=== PATIENT | female | born 1965 | race Caucasian/White ===

== ENCOUNTER → 2017-03-26 15:34 | Outpatient (CLI) | payer MEDICARE, SELFPAY ==
--- NOTE | 2017-03-26 15:41 | XR_ITS ---
XR hip LT 2-3V w/pelvis HISTORY: Pain following injury ORDERING PHYSICIAN: DERREK Prado PATIENT AGE: 51 years COMPARISON: April 06, 2010 FINDINGS: No obvious fracture or dislocation. Mild osteoarthritic changes are present involving the hips. No lytic or blastic change. There is a longitudinal lucency along the lateral aspect of the acetabulum. Present on the previous study and may be due to prominent area of trabeculation or groove within the acetabulum. IMPRESSION: No acute finding. Mild osteoarthritis of the hip
--- NOTE | 2017-03-26 15:41 | XR_ITS ---
XR shoulder LT min 2V HISTORY: Pain following injury ORDERING PHYSICIAN: DERREK Prado PATIENT AGE: 51 years COMPARISON: None FINDINGS: No fracture or dislocation. No lytic or blastic change. There is normal mineralization. Osteoarthritic changes are present at the acromioclavicular joint IMPRESSION: 1. No acute fracture. 2. Mild osteoarthritis of the AC joint
--- NOTE | 2017-03-26 15:41 | XR_ITS ---
XR knee LT 4V HISTORY: Pain following injury ORDERING PHYSICIAN: DERREK Prado PATIENT AGE: 51 years COMPARISON: None FINDINGS: 02/09/2015 No fracture or dislocation. No lytic or blastic change. Normal mineralization. There are mild to moderate tricompartmental osteoarthritic changes greater at the medial compartment and patellofemoral joint. No other significant findings IMPRESSION: Osteoarthritis. No acute finding
--- NOTE | 2017-03-26 15:42 | XR_ITS ---
EXAM: XR lumbar spine min 4V HISTORY: Low back pain following injury ITS.REASON: LEFT HIP PAIN,LT KNEE PAIN,LT SHOULDER PAIN,LOW BACK PAIN ORDERING PHYSICIAN: DERREK Prado PATIENT AGE: 51 years COMPARISON: None FINDINGS: Normal alignment. No fracture or dislocation. No lytic or blastic change. Minimal lumbar curvature convex left. Small endplate osteophytes at L5 and L4. Mild facet arthritic changes L5-S1 in the SI joints. IMPRESSION: No acute finding. Mild lumbar spondylosis
== END ==
PROVIDERS: PCP Family Medicine; Visit Provider Physician Assistant
DX: M25.552 Pain in left hip (principal); M25.512 Pain in left shoulder; M25.562 Pain in left knee; M54.5 Low back pain
CPT/HCPCS: 72110; 73030; 73502; 73564

== ENCOUNTER → 2017-07-23 10:47 | Outpatient (CLI) | payer MEDICARE, SELFPAY ==
--- NOTE | 2017-07-23 | CI_ITS ---
Cerebrovascular Exam Indications: 780.4 Dizziness and giddiness. Obesity, Limited scanning due to body habitus. IMPRESSIONS 1. The bilateral internal carotid arteries reveal no evidence of plaque or stenosis. 2. The bilateral common and external carotid arteries reveal no significant stenosis. 3. The bilateral vertebral arteries are patent with normal antegrade flow. History: Transient ischemic attack. Risk factors: Hypertension. Diabetes mellitus. Hyperlipidemia. Carotid duplex study. Complete study and Doppler flow study including spectral analysis, color and velazquez scale imaging. Height: Height: 165.1cm. Height: 65in. Weight: Weight: 118.8kg. Weight: 261.5lb. Body mass index: BMI: 43.6kg/m^2. Body surface area: BSA: 2.4m^2. Location: Vascular laboratory. Patient status: Outpatient. Tables: Arterial flow: + +--------+--------+ Location V sys V ed + +--------+--------+ Right CCA - proximal 151cm/s 18.9cm/s + +--------+--------+ Right CCA - distal 114cm/s 25.1cm/s + +--------+--------+ Right ECA 165cm/s -------- + +--------+--------+ Right ICA - proximal 95.1cm/s 25.9cm/s + +--------+--------+ Right ICA - mid 54cm/s 16.5cm/s + +--------+--------+ Right ICA - distal 83cm/s 23.7cm/s + +--------+--------+ Left CCA - proximal 136cm/s 20.4cm/s + +--------+--------+ Left CCA - distal 98.9cm/s 22.2cm/s + +--------+--------+ Left ECA 125cm/s -------- + +--------+--------+ Left ICA - proximal 60cm/s 20cm/s + +--------+--------+ Left ICA - mid 69.7cm/s 24.5cm/s + +--------+--------+ Left vertebral 58.6cm/s -------- + +--------+--------+ Velocity ratios: + + + + + + Right, V sys Right, V ed Left, V sys Left, V ed + + + + + + Max ICA/dist CCA 0.83 1.03 0.7 1.1 + + + + + + (Report amended ) Electronically signed by: Nhan Sadler [id number]
== END ==
PROVIDERS: Family Provider Family Medicine; PCP Family Medicine; Visit Provider Family Medicine
DX: R40.4 Transient alteration of awareness (principal); R42 Dizziness and giddiness
CPT/HCPCS: 93880

== ENCOUNTER 2017-08-06 09:22 | Observation (INO) ==
--- NOTE | 2017-08-06 09:48 | Emergency Department Note ---
ED Disposition Clinical Impression: Compression fracture, Intractable pain Disposition: Admitted as Observation Condition on Discharge: Fair Additional Instructions: Admittd to OBS and told this will not be a prolonged admission...only for intractable pain to stabilize Referrals: Brendan Young MD [Primary Care Provider] - Keshawn Albert MD [Staff Physician] - Time of Disposition: 13:44 - Critical Care Critical Care Time: No Attestation: On , the high probability of a clinically significant, sudden or life threatening deterioration of the following system(s) required my full and direct attention, intervention and personal management. The time I documented below is in addition to time spent performing reported procedures but includes the following listed in this critical care notation. Medical Decision Making - Edwin Inquiry Pt receiving controlled substance: No Edwin was queried for this patient: No Reason not queried -: Emergent pt cond-no time Risks and benefits of using a controlled substance: were discussed with pt by me Vital Signs: 08/06/17 09:22 08/06/17 09:23 Temperature 98.3 F Temperature Source Temporal Artery Scan Pulse Rate [Right Brachial] 96 H 86 Respiratory Rate 20 18 Blood Pressure [RIGHT] 161/103 142/77 Blood Pressure Mean [RIGHT] 122 98 Blood Pressure Source [RIGHT] Automatic Cuff Blood Pressure Position [RIGHT] Sitting 02 Sat by Pulse Oximetry 97 95 Oxygen Delivery Method Room Air - Lab Data Lab results reviewed: Yes: I reviewed the patient's lab results. Lab Results 08/06/17 10:10: WBC 8.6, RBC 5.45 H, Hgb 16.4 H, Hct 51.6 H, MCV 94.8, MCH 30.0 , MCHC 31.7 L, RDW 12.8, Plt Count 220, MPV 7.7, Neut % (Auto) 79.2, Lymph % ( Auto) 15.4, [place] % (Auto) 4.0, Eos % (Auto) 1.1, Baso % (Auto) 0.4, Neut # (Auto ) 6.8, Lymph # (Auto) 1.3, [place] # (Auto) 0.3, Eos # (Auto) 0.1, Baso # (Auto) 0.0 08/06/17 10:10: Sodium 141, Potassium 4.1, Chloride 101, Carbon Dioxide 30, Anion Gap 14.1, BUN 17, Creatinine 0.81, Estimated Creat Clear 66, Estimated GFR 74, Est GFR ( Amer) 89, Glucose 196 H, Calcium 9.1, Total Bilirubin 0.4, AST 22, ALT 31, Alkaline Phosphatase 81, Total Protein 7.6, Albumin 3.3 L, Globulin 4.3 H, Albumin/Globulin Ratio 0.8 L Result diagrams: 08/06/17 10:10 08/06/17 10:10 Orders (Tests/Meds): ED MEDICATIONS Discontinued Medications Generic Name Dose Route Start Last Admin Trade Name Russell PRN Reason Stop Dose Admin Morphine Sulfate 4 mg 08/06/17 12:25 08/06/17 12:38 Morphine 4mg/Ml Syringe IV 08/06/17 12:26 4 mg ONCE ONE Administration Ondansetron HCl 4 mg 08/06/17 12:25 08/06/17 12:38 Zofran 4mg/2ml Vial IV 08/06/17 12:26 4 mg ONCE ONE Administration ORDERS Category Date Time Status Urinalysis and Microscopic Stat Lab 08/06/17 09:54 Ordered - Radiology Data #1 Image(s): L-Spine Image Reviewed: Yes I reviewed the patient's radiology results, Yes I reviewed the patient's radiology image, Yes I discussed the image results w/the radiologist MILD COMPRESSION OF L1 Back Pain HPI - General Chief Complaint: Back Pain/Injury Stated Complaint: FALL Time Seen by Provider: 08/06/17 09:43 Mode of Arrival: EMS Limitations: No Limitations Description of Symptoms (Recalled from ER Triage Doc. by RN): LOW BACK PAIN FROM FALL - History of Present Illness HPI Narrative: Pt reports she has been having falls recently and normally uses a walker to help her but last night went to bed and left walker in living room. This morning got up and used cane to walk into the living room and fell backwards and landed on her back and head. NO LOC but pain in head, Neck, upper and lower back and into both arms and both legs. MD Complaint: back pain, fall Onset (ago): hour(s) Duration: constant Similar Symptoms Previously: Yes Location: lumbar spine, thoracic spine Severity: moderate Quality: sharp - Related Data Home Medications Medication Instructions Recorded Confirmed Citalopram Hydrobromide [Celexa 1 tab PO DAILY 08/06/17 08/06/17 10mg Tablet] Dapagliflozin/Metformin HCl 1 tab PO DIRECTED 08/06/17 08/06/17 [Xigduo Xr 10 mg-1,000 mg Tab] Gabapentin [Neurontin 600mg 1 tab PO DAILY 08/06/17 08/06/17 tablet] Insulin Glargine,Hum.rec.anlog 0 units SQ DIRECTED 08/06/17 08/06/17 [Toujeo Solostar] Liraglutide [Victoza 3-Sharath] 1 dose PO DAILY 08/06/17 08/06/17 Triamterene/Hydrochlorothiazid 1 tab PO DIRECTED 08/06/17 08/06/17 [Maxzide-25 tablet] buPROPion HCl [Bupropion HCl Sr] 150 mg PO DAILY 08/06/17 08/06/17 diazePAM [Valium 2mg tablet] 1 tab PO DAILY 08/06/17 08/06/17 Allergies Allergy/AdvReac Type Severity Reaction Status Date / Time cephalexin [CEPHALEXIN] Allergy Intermediate I-HIVES Verified 08/06/17 10:00 [facility] History I have reviewed the patient's past medical history: Yes - Social History Smoking Status: Never smoker Alcohol Intake: never - Psychiatric History Expresses thoughts of harming self/others: None Suicide Plan Description: No Plan ROS Obtained: Yes All systems reviewed & no additional complaints - Constitutional Constitutional: Reports system reviewed and no additional complaints, except as docu - ENT Ears, Nose, Mouth, and Throat: Reports system reviewed and no additional complaints, except as docu - Cardiovascular Cardiovascular: Reports system reviewed and no additional complaints, except as docu - Respiratory Respiratory: Yes system reviewed and no additional complaints, except as docu - Musculoskeletal Musculoskeletal: Reports system reviewed and no additional complaints, except as docu Physical Exam - General General appearance: alert, in no apparent distress - Head Head exam: atraumatic - Eye Eye exam: Present: normal appearance - ENT ENT exam: Present: normal exam - Neck Neck exam: Present: normal inspection (moveing without difficulty but complains of pain) - Chest Chest inspection: Present: normal inspection - Respiratory Respiratory exam: Present: normal lung sounds bilaterally - Cardiovascular Cardiovascular exam: Present: regular rate - Back Exam Back exam: Present: normal inspection, full ROM - Neurological Exam Neurological exam: Present: alert, oriented X3 - Psychiatric Psychiatric exam: Present: normal affect
[2017-08-06 10:20] LABS: Basophils % 0.4 % (0.1-2.0); Eosinophils # 0.1 K/mm3 (0.0-0.4); Eosinophils % 1.1 % (0.1-12.0); Hematocrit 51.6 % (37.0-47.0); Hemoglobin 16.4 g/dL (12.2-16.2); Lymphocytes # 1.3 K/mm3 (0.7-4.5); Lymphocytes % 15.4 K/mm3 (10-50); Mean Corpuscular HGB Conc 31.7 g/dL (31.8-35.4); Mean Corpuscular Volume 94.8 fl (81-99); Mean Platelet Volume 7.7 fl (7.4-10.4); Monocytes # 0.3 K/mm3 (0.1-1.0); Neutrophils # 6.8 K/mm3 (1.8-7.8); Neutrophils % 79.2 % (37.0-80.0); Platelet Count 220 K/mm3 (142-424); Red Blood Count 5.45 M/mm3 (4.20-5.40); Red Cell Distribution Width 12.8 % (11.5-17.5); White Blood Count 8.6 K/mm3 (4.8-10.8)
[2017-08-06 10:32] LABS: Albumin Level 3.3 gm/dL (3.4-5.0); Albumin/Globulin Ratio 0.8 (1.1-1.8); Anion Gap 14.1 mEq/L (5-15); Bilirubin,Total 0.4 mg/dL (0.2-1.0); Calcium 9.1 mg/dL (8.5-10.1); Globulin 4.3 gm/dl (1.3-3.2); Potassium 4.1 mmoL/L (3.5-5.1); Total Protein,Serum 7.6 gm/dL (6.4-8.2)
--- NOTE | 2017-08-06 15:48 | History & Physical Report ---
*Admission Date: 08/06/17 <TangLadonna metcalf 08/06/17 15:48> *Chief complaint: Back pain <ClydeLadonna 08/06/17 15:48> *History of present illness: Ms. Partida is a 52-year-old female with a history of hypertension, obesity, type 2 diabetes, anxiety, and mild degenerative disc disease who fell this a.m. after tripping when using her cane when going to the bathroom. She states she usually will uses her walker but cannot use it in the bathroom because the bathroom is too small. She fell down on her buttocks and her head and was unable to get up. EMS was called and she was carried to the ambulance and brought to the hospital emergency room for evaluation. With evaluation in the emergency room she was found to have a compression fracture fracture at L1. She was admitted to observation with intractable pain. At the time of this exam patient is lying flat in the bed and appears comfortable. She does want to know what we are going to order for her pain. <ClydeLadonna 08/06/17 15:48> [facility] History Medical History: Reports:: Anxiety, Depression, Diabetes Mellitus Type 2, Gastroesophageal Reflux Disease(GERD), Hyperlipidemia, Hypertension Denies:: Cancer, Diabetes Mellitus Type 1, Internal Pacemaker, MRSA, Seizures <ClydeLadonna 08/06/17 17:21> Other Surgeries: Yes: Cholecystectomy, Dilation and Curettage. No: Pacemaker <Ladonna Tang 08/06/17 17:21> Amputation: No <Ladonna Tang 08/06/17 15:48> Fractures: No <Ladonna Tang 08/06/17 15:48> - *Social History Educational Level: Completed High School <Ladonna Tang 08/06/17 15:48> Smoking Status: Never smoker <Ladonna Tang 08/06/17 15:48> Alcohol Intake: never <Ladonna Tang 08/06/17 15:48> Occupational Status: unemployed <Ladonna Tang 08/06/17 15:48> Housing: house <Ladonna Tang 08/06/17 15:48> - Psychiatric History Expresses thoughts of harming self/others: None <Ladonna Tang 08/06/17 15: 48> Suicide Plan Description: No Plan <[facility] 08/06/17 15:48> Pschychiatric History:: Reports:: Depression [facility]/06[facility]17 17:21> *Family Hx:: Cancer, Coronary Artery Disease <[facility] 08/06/17 17:21> Review of Systems - Constitutional Denies body ache(s), Denies fever(s) <Tang,[facility] 08/06/17 17:21> - ENT Denies ear pain, Denies sore throat <[facility] 08/06/17 17:21> - *Cardiovascular Reports shortness of breath with activity, Reports leg swelling, Reports lightheadedness, Denies chest pain <[facility] 08/06/17 17:21> - *Respiratory Reports shortness of breath with activity, Denies chest congestion, Denies cough , Denies coughing up blood <[facility] 08/06/17 17:21> - *Gastrointestinal Reports heartburn, Denies constipation, Denies nausea, Denies vomiting < [facility] 17:21> - *Genitourinary Denies difficulty urinating, Denies painful urination [facility] 17:21> - *Musculoskeletal Reports joint pain (lower back pain since fall) <[facility] 08/06/17 17: 21> Comments: walks with a cane or walker <[facility] 08/06/17 17:21> - *Neurologic Reports unsteadiness, Reports dizziness, Reports frequent falls <Tang [facility] 08/06/17 17:21> - Psychiatric Reports anxiety, Reports depression <Tang,[facility] 08/06/17 17:21> Meds Home Medications Medication Instructions Recorded Confirmed Type Albuterol Sulfate [Proair Hfa 2 puffs INHALATION TID 08/06/17 08/06/17 History 90mcg/puff Inh] Aspirin [Aspirin 81mg chewable 81 mg PO DAILY 08/06/17 08/06/17 History tab] Citalopram Hydrobromide [Celexa 10 mg PO DAILY 08/06/17 08/06/17 History 10mg Tablet] Clotrimazole/Betamethasone Dip 1 applicatio TP BID 08/06/17 08/06/17 History [Clotrimazole-Betamethasone Lot] Dapagliflozin/Metformin HCl 2 tab PO DAILY 08/06/17 08/06/17 History [Xigduo Xr 10 mg-1,000 mg Tab] Gabapentin [Neurontin 600mg 600 tab PO BID 08/06/17 08/06/17 History tablet] Insulin Glargine,Hum.rec.anlog 54 unit SQ DAILY 08/06/17 08/06/17 History [Toubrenda Bella] Insulin NPH Hum/Reg Insulin Hm 0 unit SQ DIRECTED 08/06/17 08/06/17 History [Novolin 70-30 100 Unit/ml Vial] Liraglutide [Victoza 3-Sharath] 1.8 mg SQ DAILY 08/06/17 08/06/17 History Losartan/Hydrochlorothiazide 1 tab PO DAILY 08/06/17 08/06/17 History [Losartan-Hctz 100-25 mg Tab] Metoprolol Succinate 25 mg PO DAILY 08/06/17 08/06/17 History Multivitamin [Multivitamins] 1 each PO DAILY 08/06/17 08/06/17 History Polyethylene Glycol 3350 [Miralax 8.5 gm PO DAILY 08/06/17 08/06/17 History Powder] Potassium Chloride [Klor-Con 10mEq 20 meq PO DAILY 08/06/17 08/06/17 History tab] Sulindac 200 mg PO BID 08/06/17 08/06/17 History buPROPion HCl [Bupropion Xl] 300 mg PO DAILY 08/06/17 08/06/17 History diazePAM [Valium] 2.5 mg PO 0900,1200 08/06/17 08/06/17 History diazePAM [diazePAM 5mg Tablet] 5 mg PO HS 08/06/17 08/06/17 History <Keshawn Albert - 08/06/17 17:31> Allergies Allergy/AdvReac Type Severity Reaction Status Date / Time cephalexin [CEPHALEXIN] Allergy Intermediate I-HIVES Verified 08/06/17 10:00 <Keshawn Albert - 08/06/17 17:31> Exam Vital signs and Labs for Last 24 Hours: Temp Pulse Resp BP Pulse Ox 97.7 F 89 20 130/83 90 L 08/06/17 16:22 08/06/17 16:22 08/06/17 16:22 08/06/17 16:22 08/06/17 16:22 Laboratory Results - last 24 hr 08/06/17 10:10: WBC 8.6, RBC 5.45 H, Hgb 16.4 H, Hct 51.6 H, MCV 94.8, MCH 30.0 , MCHC 31.7 L, RDW 12.8, Plt Count 220, MPV 7.7, Neut % (Auto) 79.2, Lymph % ( Auto) 15.4, [place] % (Auto) 4.0, Eos % (Auto) 1.1, Baso % (Auto) 0.4, Neut # (Auto ) 6.8, Lymph # (Auto) 1.3, [place] # (Auto) 0.3, Eos # (Auto) 0.1, Baso # (Auto) 0.0 08/06/17 10:10: Sodium 141, Potassium 4.1, Chloride 101, Carbon Dioxide 30, Anion Gap 14.1, BUN 17, Creatinine 0.81, Estimated Creat Clear 66, Estimated GFR 74, Est GFR ( Amer) 89, Glucose 196 H, Calcium 9.1, Total Bilirubin 0.4, AST 22, ALT 31, Alkaline Phosphatase 81, Total Protein 7.6, Albumin 3.3 L, Globulin 4.3 H, Albumin/Globulin Ratio 0.8 L <Keshawn Albert - 08/06/17 17:31> Temp Pulse Resp BP Pulse Ox 98.3 F 86 18 142/77 95 08/06/17 09:23 08/06/17 09:23 08/06/17 09:23 08/06/17 09:23 08/06/17 09:23 Laboratory Results - last 24 hr 08/06/17 10:10: WBC 8.6, RBC 5.45 H, Hgb 16.4 H, Hct 51.6 H, MCV 94.8, MCH 30.0 , MCHC 31.7 L, RDW 12.8, Plt Count 220, MPV 7.7, Neut % (Auto) 79.2, Lymph % ( Auto) 15.4, [place] % (Auto) 4.0, Eos % (Auto) 1.1, Baso % (Auto) 0.4, Neut # (Auto ) 6.8, Lymph # (Auto) 1.3, [place] # (Auto) 0.3, Eos # (Auto) 0.1, Baso # (Auto) 0.0 08/06/17 10:10: Sodium 141, Potassium 4.1, Chloride 101, Carbon Dioxide 30, Anion Gap 14.1, BUN 17, Creatinine 0.81, Estimated Creat Clear 66, Estimated GFR 74, Est GFR ( Amer) 89, Glucose 196 H, Calcium 9.1, Total Bilirubin 0.4, AST 22, ALT 31, Alkaline Phosphatase 81, Total Protein 7.6, Albumin 3.3 L, Globulin 4.3 H, Albumin/Globulin Ratio 0.8 L <Ladonna Tang - 08/06/17 15:48> I & O for Last 24 hours: Intake & Output 08/04/17 08/05/17 08/06/17 08/07/17 11:59 11:59 11:59 11:59 Weight 275 lb 270 lb 9 oz <McgeeKeshawn - 08/06/17 17:31> Intake & Output 08/04/17 08/05/17 08/06/17 08/07/17 11:59 11:59 11:59 11:59 Weight 275 lb <Ladonna Tang - 08/06/17 15:48> Radiology Reports for the Last 24 Hours: 08/06/2017 chest x-ray IMPRESSION: No acute finding. 08/06/2017 CT of the head IMPRESSION: Negative CT head without contrast. No acute finding 08/06/2017 x-ray of the left knee IMPRESSION: Osteoarthritis, no acute finding 08/06/2017 x-ray of the pelvis IMPRESSION: Mild osteoarthritis of the hips, no acute fracture 08/06/2017 lumbar spine x-ray IMPRESSION: Minimal wedge compression changes of L1. No obvious retropulsion. CT may better evaluate if clinically warranted 08/06/2017 CT of the cervical spine IMPRESSION: 1. No acute fracture. 2. Cervical spondylosis 08/06/2017 CT of the lumbar spine IMPRESSION: 1. Minimal acute wedge compression changes involve the superior endplate of L1 2. Lumbar spondylosis with facet and ligamentum flavum hypertrophy and bulging disc as described above. Please above for detailed description <Ladonna Tang 08/06/17 15:54> - Constitutional no acute distress <Ladonna Tang 08/06/17 17:21> Comments: lying flat in the bed and appears comfortable <Ladonna Tang 08/06/17 17:21> - *Routine HEENT Exam Head: Present: normocephalic, atraumatic <[facility] 08/06/17 17:21> Eye: Present: PERRL. Absent: conjunctival icterus, scleral injection <[facility] 08/06/17 17:21> ENT: Present: mucous membranes dry, oropharynx clear <[facility] 17:21> - *Routine Neck Exam Absent: carotid bruit, lymphadenopathy, thyromegaly <[facility] 08/06/17 17:21> - *Routine Respiratory Exam Present: CTA bilaterally <[facility] 08/06/17 17:21> - *Routine Cardiovascular Exam Present: RRR <[facility] 08/06/17 17:21> - *Routine Abdominal Exam Present: normoactive bowel sounds. Absent: tenderness <[facility] 17:21> Comments: obese <[facility] 08/06/17 17:21> - *Routine Extremities Exam Present: edema. Absent: calf tenderness <[facility] 08/06/17 17:21> Comments: moving legs without difficulty <[facility] 08/06/17 17:21> - Routine Back/Spine/Pelvis Exam Back/Spine: Present: vertebral tenderness (lower back) <[facility] 17:21> - *Routine Neurological Exam Present: alert, oriented X3 <[facility] 08/06/17 17:21> H&P: Result - Labs Labs: Short CBC 08/06/17 Range/Units 10:10 WBC 8.6 (4.8-10.8) K/mm3 Hgb 16.4 H (12.2-16.2) g/dL Hct 51.6 H (37.0-47.0) % Plt Count 220 (142-424) K/mm3 BMP 08/06/17 10:10 Sodium 141 Potassium 4.1 Chloride 101 Carbon Dioxide 30 BUN 17 Creatinine 0.81 Glucose 196 H Calcium 9.1 Liver Function 08/06/17 Range/Units 10:10 Total Bilirubin 0.4 (0.2-1.0) mg/dL AST 22 (15-37) U/L ALT 31 (12-78) U/L Alkaline Phosphatase 81 (46-116) U/L Albumin 3.3 L (3.4-5.0) gm/dL <Keshawn Albert - 08/06/17 17:31> Short CBC 08/06/17 Range/Units 10:10 WBC 8.6 (4.8-10.8) K/mm3 Hgb 16.4 H (12.2-16.2) g/dL Hct 51.6 H (37.0-47.0) % Plt Count 220 (142-424) K/mm3 BMP 08/06/17 10:10 Sodium 141 Potassium 4.1 Chloride 101 Carbon Dioxide 30 BUN 17 Creatinine 0.81 Glucose 196 H Calcium 9.1 Liver Function 08/06/17 Range/Units 10:10 Total Bilirubin 0.4 (0.2-1.0) mg/dL AST 22 (15-37) U/L ALT 31 (12-78) U/L Alkaline Phosphatase 81 (46-116) U/L Albumin 3.3 L (3.4-5.0) gm/dL <Ladonna Tang - 08/06/17 15:48> Assessment and Plan (1) Compression fracture Current visit: Yes Status: Acute Category: Medical (2) Intractable pain Current visit: Yes Status: Acute Category: Medical Code(s): R52 - Pain, unspecified (3) Diabetes mellitus type 2 in obese Current visit: Yes Status: Chronic Category: Medical Code(s): E11.69 - Type 2 diabetes mellitus with other specified complication; E66.9 - Obesity, unspecified (4) Obesity Current visit: Yes Status: Chronic Category: Medical Code(s): E66.9 - Obesity, unspecified (5) Anxiety Current visit: Yes Status: Chronic Category: Medical Code(s): F41.9 - Anxiety disorder, unspecified (6) HTN (hypertension) Current visit: Yes Status: Chronic Category: Medical Code(s): I10 - Essential (primary) hypertension (7) Depression Current visit: Yes Status: Chronic Category: Medical Code(s): F32.9 - Major depressive disorder, single episode, unspecified <Keshawn Albert - 08/06/17 17:31> (1) Compression fracture Current visit: Yes Status: Acute Category: Medical (2) Intractable pain Current visit: Yes Status: Acute Category: Medical Code(s): R52 - Pain, unspecified (3) Diabetes mellitus type 2 in obese Current visit: Yes Status: Chronic Category: Medical Code(s): E11.69 - Type 2 diabetes mellitus with other specified complication; E66.9 - Obesity, unspecified (4) Obesity Current visit: Yes Status: Chronic Category: Medical Code(s): E66.9 - Obesity, unspecified (5) Anxiety Current visit: Yes Status: Chronic Category: Medical Code(s): F41.9 - Anxiety disorder, unspecified (6) HTN (hypertension) Current visit: Yes Status: Chronic Category: Medical Code(s): I10 - Essential (primary) hypertension (7) Depression Current visit: Yes Status: Chronic Category: Medical Code(s): F32.9 - Major depressive disorder, single episode, unspecified <Ladonna Tang - 08/06/17 17:22> - Assessment and plan all Dx Assessment and Plan for all problems:: Saw patient, agree with above note. <Keshawn Albert - 08/06/17 17:31> pain management; ambulation; maintenance meds ordered <Ladonna Tang - 08/06/17 17:25>
--- NOTE | 2017-08-06 17:00 | Progress Note ---
Internal Medicine - PN: Subj *Date: 08/06/17 *Time: 16:57 Interval history: Patient brought to ER today after falling at home. She reports a lot of low back pain. She was found to have an L1 compression fracture and was admitted for pain control. Exam Vital signs and Labs for Last 24 Hours: Temp Pulse Resp BP Pulse Ox 97.7 F 89 20 130/83 90 L 08/06/17 16:22 08/06/17 16:22 08/06/17 16:22 08/06/17 16:22 08/06/17 16:22 Laboratory Results - last 24 hr 08/06/17 10:10: WBC 8.6, RBC 5.45 H, Hgb 16.4 H, Hct 51.6 H, MCV 94.8, MCH 30.0 , MCHC 31.7 L, RDW 12.8, Plt Count 220, MPV 7.7, Neut % (Auto) 79.2, Lymph % ( Auto) 15.4, [place]igg % (Auto) 4.0, Eos % (Auto) 1.1, Baso % (Auto) 0.4, Neut # (Auto ) 6.8, Lymph # (Auto) 1.3, Trigg # (Auto) 0.3, Eos # (Auto) 0.1, Baso # (Auto) 0.0 08/06/17 10:10: Sodium 141, Potassium 4.1, Chloride 101, Carbon Dioxide 30, Anion Gap 14.1, BUN 17, Creatinine 0.81, Estimated Creat Clear 66, Estimated GFR 74, Est GFR ( Amer) 89, Glucose 196 H, Calcium 9.1, Total Bilirubin 0.4, AST 22, ALT 31, Alkaline Phosphatase 81, Total Protein 7.6, Albumin 3.3 L, Globulin 4.3 H, Albumin/Globulin Ratio 0.8 L I & O for Last 24 hours: Intake & Output 08/04/17 08/05/17 08/06/17 08/07/17 11:59 11:59 11:59 11:59 Weight 275 lb 270 lb 9 oz - Constitutional Comments: Lying in bed, uncomfortable due to pain, conversant, hungry, requests food. Assessment and Plan - Assessment and plan all Dx Assessment and Plan for all problems:: Observe tonight, pain control with Toradol, Gilmer and Morphine for severe pain, plan discharge home tomorrow.
--- NOTE | 2017-08-07 07:26 | Pharmacy Consult Notes ---
[facility] Pharmacy VTE Monitoring - Patient Demographics Admission date: 08/06/17 Report Date: 08/07/17 Time: 07:25 Allergies/Adverse Reactions: Patient Allergies cephalexin [CEPHALEXIN] Allergy (Intermediate, Verified 08/06/17 10:00) I-HIVES Height: 1.65 m Weight: 122.725 kg Patient Problems: Current Active Problems Compression fracture (Acute) Intractable pain (Acute) Diabetes mellitus type 2 in obese (Chronic) Obesity (Chronic) Anxiety (Chronic) HTN (hypertension) (Chronic) Depression (Chronic) - VTE Risk Labs: VTE Related Lab Results Hgb 16.4 g/dL (12.2-16.2) H 08/06/17 10:10 Hct 51.6 % (37.0-47.0) H 08/06/17 10:10 Plt Count 220 K/mm3 (142-424) 08/06/17 10:10 BUN 17 mg/dL (7-18) 08/06/17 10:10 Creatinine 0.81 mg/dL (0.55-1.02) 08/06/17 10:10 Estimated Creat Clear 66 mL/min (0-300) 08/06/17 10:10 Was VTE Risk Assessment Performed: Yes VTE Score: 4 VTE Risk Level: Low Risk - Prophylaxis VTE Prophylaxis Ordered?: Yes Types of VTE Prophylaxis: TEDS Knee High Location of Applied Device: Bilateral Lower Extremeties - VTE Diagnosis Confirmed Treatment or plan recommended: Continue Current Treatment
[2017-08-07 07:41] VITALS: BP 126/79
--- NOTE | 2017-08-07 08:32 | Progress Note ---
Internal Medicine - PN: Subj *Date: 08/07/17 *Time: 08:29 Interval history: Pt is sitting up on the side of the bed finishing her breakfast, she denies any GI upset, chest pain, or SOB. She reports that she has been up to the bathroom using the walker with assistance and is voiding normally. She reports some low back pain which is well-controlled currently. Exam Vital signs and Labs for Last 24 Hours: Temp Pulse Resp BP Pulse Ox 97.6 F 82 18 126/79 95 08/07/17 07:40 08/07/17 07:40 08/07/17 07:40 08/07/17 07:40 08/07/17 07:40 Laboratory Results - last 24 hr 08/06/17 10:10: WBC 8.6, RBC 5.45 H, Hgb 16.4 H, Hct 51.6 H, MCV 94.8, MCH 30.0 , MCHC 31.7 L, RDW 12.8, Plt Count 220, MPV 7.7, Neut % (Auto) 79.2, Lymph % ( Auto) 15.4, Moody % (Auto) 4.0, Eos % (Auto) 1.1, Baso % (Auto) 0.4, Neut # (Auto ) 6.8, Lymph # (Auto) 1.3, Moody # (Auto) 0.3, Eos # (Auto) 0.1, Baso # (Auto) 0.0 08/06/17 10:10: Sodium 141, Potassium 4.1, Chloride 101, Carbon Dioxide 30, Anion Gap 14.1, BUN 17, Creatinine 0.81, Estimated Creat Clear 66, Estimated GFR 74, Est GFR ( Amer) 89, Glucose 196 H, Calcium 9.1, Total Bilirubin 0.4, AST 22, ALT 31, Alkaline Phosphatase 81, Total Protein 7.6, Albumin 3.3 L, Globulin 4.3 H, Albumin/Globulin Ratio 0.8 L 08/06/17 19:59: POC Glucose 252 H 08/07/17 06:31: POC Glucose 210 H I & O for Last 24 hours: Intake & Output 08/04/17 08/05/17 08/06/17 08/07/17 11:59 11:59 11:59 11:59 Intake Total 1580 / 1580 Output Total 1800 / 1800 Balance -220 / -220 Weight 275 lb 270 lb 9 oz - Constitutional no acute distress - *Routine HEENT Exam Head: Present: normocephalic, atraumatic - *Routine Neck Exam Present: supple, full ROM - *Routine Respiratory Exam Present: CTA bilaterally - *Routine Cardiovascular Exam Present: RRR - *Routine Abdominal Exam Present: soft, normoactive bowel sounds. Absent: tenderness, distended, rebound , guarding, organomegaly, mass - *Routine Extremities Exam Present: edema, pulses intact. Absent: calf tenderness, tenderness Comments: BLE edema L>R - *Routine Neurological Exam Present: alert, oriented X3, moving all extremities Assessment and Plan (1) Compression fracture Current visit: Yes Status: Acute Category: Medical (2) Intractable pain Current visit: Yes Status: Acute Category: Medical Code(s): R52 - Pain, unspecified (3) Diabetes mellitus type 2 in obese Current visit: Yes Status: Chronic Category: Medical Code(s): E11.69 - Type 2 diabetes mellitus with other specified complication; E66.9 - Obesity, unspecified (4) Obesity Current visit: Yes Status: Chronic Category: Medical Code(s): E66.9 - Obesity, unspecified (5) Anxiety Current visit: Yes Status: Chronic Category: Medical Code(s): F41.9 - Anxiety disorder, unspecified (6) HTN (hypertension) Current visit: Yes Status: Chronic Category: Medical Code(s): I10 - Essential (primary) hypertension (7) Depression Current visit: Yes Status: Chronic Category: Medical Code(s): F32.9 - Major depressive disorder, single episode, unspecified - Assessment and plan all Dx Assessment and Plan for all problems:: Pt appears comfortable this morning, may consider d/c home.
[2017-08-07 10:27] LABS: Appearance,Urine SL CLOUDY (Clear); Bilirubin,Urine Negative (Negative); Blood, Urine Negative (Negative); Color,Urine YELLOW (Yellow); Glucose,Urine (UA) 3+ (Negative); Ketones,Urine Negative (Negative); Leukocyte Esterase,Urine Negative (Negative); Microscopic, Urine URINE MICROSCOPIC (MICROSCOPIC); Protein,Urine Negative (Negative); Urobilinogen,Urine 0.2 EU/dl (0.2)
[2017-08-07 10:35] LABS: Bacteria,Urine 2+ /lpf; WBC,Urine Occasional #/hpf (0-3)
--- NOTE | 2017-08-08 08:01 | Discharge Summary ---
General - General Admission date:: 08/06/17 Discharge date: 08/07/17 HPI HPI: Ms. Partida is a 52-year-old female with a history of hypertension, obesity, type 2 diabetes, anxiety, and mild degenerative disc disease who fell the a.m. of admission after tripping when using her cane when going to the bathroom. She stated she usually uses her walker but it will not fit in her bathroom. She fell down on her buttocks and hit her head as well. She was unable to get up. EMS was called and she was carried to the ambulance and brought to the hospital emergency room for evaluation. With evaluation in the emergency room she was found to have a compression fracture at L1. She was admitted to observation with intractable pain. At the time of initial exam patient was lying flat in the bed and appeared comfortable. Hospital Course Hospital Course: On admission home maintenance meds were initiated. She was started on timed pain med. and her back pain was controlled. The following day she was able to ambulate to the bathroom with a walker. She was eating without problems and voiding QS. The PM of 08/07/17 she was stable to be discharged to home with limited activity and pain med with FU with Dr Young. Objective Vital signs: Temp Pulse Resp BP Pulse Ox 97.6 F 82 18 126/79 95 08/07/17 07:40 08/07/17 07:40 08/07/17 14:17 08/07/17 07:40 08/07/17 07:40 - Constitutional no acute distress - *Routine HEENT Exam Head: Present: normocephalic, atraumatic - *Routine Neck Exam Present: supple, full ROM - *Routine Respiratory Exam Present: CTA bilaterally - *Routine Cardiovascular Exam Present: RRR - *Routine Abdominal Exam Present: soft, normoactive bowel sounds. Absent: tenderness, distended, rebound , guarding, organomegaly, mass - *Routine Extremities Exam Present: edema, pulses intact. Absent: calf tenderness, tenderness Comments: Results Completed studies during hospitalization [Text1]: 08/06/2017 chest x-ray IMPRESSION: No acute finding. 08/06/2017 CT of the head IMPRESSION: Negative CT head without contrast. No acute finding 08/06/2017 x-ray of the left knee IMPRESSION: Osteoarthritis, no acute finding 08/06/2017 x-ray of the pelvis IMPRESSION: Mild osteoarthritis of the hips, no acute fracture 08/06/2017 lumbar spine x-ray IMPRESSION: Minimal wedge compression changes of L1. No obvious retropulsion. CT may better evaluate if clinically warranted 08/06/2017 CT of the cervical spine IMPRESSION: 1. No acute fracture. 2. Cervical spondylosis 08/06/2017 CT of the lumbar spine IMPRESSION: 1. Minimal acute wedge compression changes involve the superior endplate of L1 2. Lumbar spondylosis with facet and ligamentum flavum hypertrophy and bulging disc as described above. Please above for detailed description Laboratory Tests 08/06/17 08/06/17 10:10 10:10 WBC 8.6 RBC 5.45 H Hgb 16.4 H Hct 51.6 H MCV 94.8 MCH 30.0 MCHC 31.7 L RDW 12.8 Plt Count 220 MPV 7.7 Neut % (Auto) 79.2 Lymph % (Auto) 15.4 Trinity % (Auto) 4.0 Eos % (Auto) 1.1 Baso % (Auto) 0.4 Neut # (Auto) 6.8 Lymph # (Auto) 1.3 Trinity # (Auto) 0.3 Eos # (Auto) 0.1 Baso # (Auto) 0.0 Sodium 141 Potassium 4.1 Chloride 101 Carbon Dioxide 30 Anion Gap 14.1 BUN 17 Creatinine 0.81 Estimated Creat Clear 66 Estimated GFR 74 Est GFR ( Amer) 89 Glucose 196 H Calcium 9.1 Total Bilirubin 0.4 AST 22 ALT 31 Alkaline Phosphatase 81 Total Protein 7.6 Albumin 3.3 L Globulin 4.3 H Albumin/Globulin Ratio 0.8 L Labs on day of discharge: Labs from last 24 hours 08/07/17 08/07/17 12:03 10:20 POC Glucose 251 H Urine Color Yellow Urine Appearance Sl cloudy Urine pH 6.0 Ur Specific [place] 1.010 Urine Protein Negative Urine Glucose (UA) 3+ Urine Ketones Negative Urine Blood Negative Urine Nitrate Negative Urine Bilirubin Negative Urine Urobilinogen 0.2 Ur Leukocyte Esterase Negative Urine RBC None Urine WBC Occasional Ur Squamous Epith Cells 10-20 Urine Bacteria 2+ DS: Diagnosis - Discharge Diagnosis (1) Compression fracture Status: Acute (2) Intractable pain Status: Acute (3) Diabetes mellitus type 2 in obese Status: Chronic (4) Obesity Status: Chronic (5) Anxiety Status: Chronic (6) HTN (hypertension) Status: Chronic (7) Depression Status: Chronic Discharge Plan - Patient Discharge Instructions ACTIVITY: Limited activity DIET: diabetic diet Patient Instructions: Vertebral Compression Fracture, Overweight in Adults, Type 2 Diabetes, Depression, High Blood Pressure, DI for Anxiety -- Adult - Follow up Plan Follow up with: Brendan Young MD [Primary Care Provider] - Disposition: Home, Self-Intermediate Medications: Home Medications Medication Instructions Recorded Confirmed Type Albuterol Sulfate [Proair Hfa 2 puffs INHALATION TID 08/06/17 08/06/17 History 90mcg/puff Inh] Aspirin [Aspirin 81mg chewable 81 mg PO DAILY 08/06/17 08/06/17 History tab] Citalopram Hydrobromide [Celexa 10 mg PO DAILY 08/06/17 08/06/17 History 10mg Tablet] Clotrimazole/Betamethasone Dip 1 applicatio TP BID 08/06/17 08/06/17 History [Clotrimazole-Betamethasone Lot] Dapagliflozin/Metformin HCl 2 tab PO DAILY 08/06/17 08/06/17 History [Xigduo Xr 10 mg-1,000 mg Tab] Gabapentin [Neurontin 600mg 600 tab PO BID 08/06/17 08/06/17 History tablet] Insulin Glargine,Hum.rec.anlog 54 unit SQ DAILY 08/06/17 08/06/17 History [Kody Bella] Insulin NPH Hum/Reg Insulin Hm 0 unit SQ DIRECTED 08/06/17 08/06/17 History [Novolin 70-30 100 Unit/ml Vial] Liraglutide [Victoza 3-Sharath] 1.8 mg SQ DAILY 08/06/17 08/06/17 History Losartan/Hydrochlorothiazide 1 tab PO DAILY 08/06/17 08/06/17 History [Losartan-Hctz 100-25 mg Tab] Metoprolol Succinate 25 mg PO DAILY 08/06/17 08/06/17 History Multivitamin [Multivitamins] 1 each PO DAILY 08/06/17 08/06/17 History Polyethylene Glycol 3350 [Miralax 8.5 gm PO DAILY 08/06/17 08/06/17 History Powder] Potassium Chloride [Klor-Con 10mEq 20 meq PO DAILY 08/06/17 08/06/17 History tab] Sulindac 200 mg PO BID 08/06/17 08/06/17 History buPROPion HCl [Bupropion Xl] 300 mg PO DAILY 08/06/17 08/06/17 History diazePAM [Valium] 2.5 mg PO 0900,1200 08/06/17 08/06/17 History diazePAM [diazePAM 5mg Tablet] 5 mg PO HS 08/06/17 08/06/17 History Prescriptions/Medication Reconciliation: New Hydrocodone/Acetaminophen [Trevett 7.5-325 Tablet] 1 tab PO TID #30 tab Continue Liraglutide [Victoza 3-Sharath] 1.8 mg SQ DAILY Gabapentin [Neurontin 600mg tablet] 600 tab PO BID Dapagliflozin/Metformin HCl [Xigduo Xr 10 mg-1,000 mg Tab] 2 tab PO DAILY Citalopram Hydrobromide [Celexa 10mg Tablet] 10 mg PO DAILY buPROPion HCl [Bupropion Xl] 300 mg PO DAILY Sulindac 200 mg PO BID Metoprolol Succinate 25 mg PO DAILY Losartan/Hydrochlorothiazide [Losartan-Hctz 100-25 mg Tab] 1 tab PO DAILY Insulin NPH Hum/Reg Insulin Hm [Novolin 70-30 100 Unit/ml Vial] 0 unit SQ DIRECTED Clotrimazole/Betamethasone Dip [Clotrimazole-Betamethasone Lot] 1 applicatio TP BID Aspirin [Aspirin 81mg chewable tab] 81 mg PO DAILY Multivitamin [Multivitamins] 1 each PO DAILY Potassium Chloride [Klor-Con 10mEq tab] 20 meq PO DAILY diazePAM [diazePAM 5mg Tablet] 5 mg PO HS Insulin Glargine,Hum.rec.anlog [Kody Bella] 54 unit SQ DAILY Polyethylene Glycol 3350 [Miralax Powder] 8.5 gm PO DAILY Albuterol Sulfate [Proair Hfa 90mcg/puff Inh] 2 puffs INHALATION TID diazePAM [Valium] 2.5 mg PO 0900,1200
== END 2017-08-07 15:08 | disposition home or self-care (01) ==
LOC: ER 09:22 → 2ND 09:22
PROVIDERS: ADMIT Family Medicine; ATTEND Family Medicine
CPT/HCPCS: 36415; 70450; 71010; 71045; 72110; 72125; 72131; 72170; 73562; 80053; 81001; 82962; 85025; 87086; 96374; 96375; 97116; 97161; 99283; G0378; J2405

== ENCOUNTER → 2017-09-17 11:39 | Outpatient (CLI) | payer MEDICARE, SELFPAY ==
--- NOTE | 2017-09-17 11:50 | XR_ITS ---
XR lumbar spine min 4V Ordering Physician: DERREK Prado Patient Age: 52 years: Female HISTORY: ITS.REASON: COMPRESSION FX TECHNIQUE: Five-view lumbar spine series COMPARISON :August 06, 2017. FINDINGS The previous study showed a subtle superior endplate compression at subtle wedging at L1. On today's study there is been significant decreased height and progressive wedging at L1. But further compression of the superior endplate and wedging with cortical step-off now seen at the anterior cortex. Roughly 20-25% % loss of height, slightly more the central portion superior endplate. . Mild levocurvature.. Minor degenerative facet changes L5/S1 L4/5 likely evident. Borderline disc space narrowing L5/S1. Scant levocurvature L-spine IMPRESSION Progressive wedge compression fracture and loss of height at L1 Previously only very minor compression L1 seen on August 06, 2017;... But now we see progressive wedge compression fracture 20-25 % loss of height at L1 now evident.
== END ==
PROVIDERS: PCP Family Medicine; Visit Provider Physician Assistant
DX: S32.010D Wedge compression fracture of first lumbar vertebra, subsequent encounter for fracture with routine healing (principal)
CPT/HCPCS: 72110

== ENCOUNTER → 2018-01-21 09:18 | Outpatient (CLI) | payer MEDICARE, SELFPAY ==
--- NOTE | 2018-01-21 09:20 | MM_ITS ---
MM Dig screening mamm BI w/CAD ORDERING PHYSICIAN : Brendan Young MD PATIENT AGE: 52 years GENDER: Female INDICATION: ITS.REASON: SCREENING TECHNIQUE: Standard CC and MLO images were obtained. R2 CAD reviewed. . Additional MLO and CC nipple profile views bilateral included COMPARISON :November 2016, 2015, June 2014 bilateral mammogram studies FINDINGS Lower density breast with generalized fatty changes.. . Minimal residual fibroglandular elements. No new areas of significant concern. No dominant mass nor suspicious calcifications. CAD review highlights no areas of concern either. Bilateral follow-up in one year recommended Right breast. Unchanged. Follow-up in one year. Left breast. No new areas of concern Tiny area of density centrally on CC view unchanged since 2014. ...... IMPRESSION: Negative Stable bilateral mammogram, with no significant new areas of concern. Follow-up in one year recommended.... BI-RADS Category: 1 Negative RECOMMENDED FOLLOW-UP: 1YR 1 YEAR FOLLOW-UP (A letter has been sent to the patient regarding results of the study.)
== END ==
PROVIDERS: PCP Family Medicine; Visit Provider Family Medicine
DX: Z12.31 Encounter for screening mammogram for malignant neoplasm of breast (principal)
CPT/HCPCS: 77067

== ENCOUNTER 2018-04-22 14:06 | Outpatient (RCR) | payer MEDICARE, SELFPAY | END 2018-04-22 14:10 | disposition home or self-care (01) | LOC: PT 14:06 | PROVIDERS: Visit Provider Family Medicine | DX: R26.89 Other abnormalities of gait and mobility (principal) ==

== ENCOUNTER → 2018-07-13 09:28 | Outpatient (POV) | payer MEDICARE, SELFPAY ==
[2018-07-13 09:45] VITALS: BP 136/87; PULSE 83; RESP 18
--- NOTE | 2018-07-13 12:39 | HMH.PMCON ---
Assessment and Plan (1) Degenerative disc disease Current visit: Yes Status: Chronic Qualifiers: Spinal region: lumbar Qualified Code(s): M51.36 - Other intervertebral disc degeneration, lumbar region Category: Medical (2) Lumbar radiculopathy Current visit: Yes Status: Chronic Category: Medical Code(s): M54.16 - Radiculopathy, lumbar region (3) Compression fracture Current visit: No Status: Acute Category: Medical - Assessment and plan all Dx Assessment and Plan for all problems:: We will schedule an L4-L5 lumbar epidural steroid injection for the patient. I believe it would be beneficial given her symptomology. I will follow-up with the patient after injection reassess her symptoms at that time. Patient's been instructed to call the office if she has any issues prior to her next appointment. Dr. Schofield has reviewed this note and agrees with this plan of care. This note was dictated using voice recognition software and may contain errors or omissions HPI - Data of Consult Consult date: 07/13/18 Requesting Physician: Estephania Pugh APRN Primary Care Provider: Brendan Young MD - Consult Narrative Reason for consult: back pain History of present illness: Ms. Partida is a 53 year old female who presents today for consultation in regards to her low back pain. Patient states that her pain started several years ago. Patient states standing for long periods of time increases her pain while heating pad decreases her pain. She is tingling in bilateral legs. Patient has had a kyphoplasty in the past. Patient has tried and failed physical therapy. Patient is on an anti-inflammatory. She is continuing a home stretching program. Patient has not tried any injective therapy. Patient is not on any anticoagulation therapy CC: Estephania Pugh APRN [facility] History I have reviewed the patient's past medical history: Yes Medical History: Reports:: Anxiety, Depression, Diabetes Mellitus Type 2, Gastroesophageal Reflux Disease(GERD), Hyperlipidemia, Hypertension Denies:: Cancer, Diabetes Mellitus Type 1, Internal Pacemaker, MRSA, Seizures *Have you ever received a pneumonia vaccine?: No *Have you received a flu vaccine this season?: No Other Surgeries: Yes: Cholecystectomy, Dilation and Curettage. No: Pacemaker Amputation: No Fractures: No - *Social History Smoking Status: Never smoker Alcohol Intake: never *Occupational Status:: unemployed Housing: house Household Members: spouse *Travel in the last 8 weeks: None - Psychiatric History Expresses thoughts of harming self/others: None Suicide Plan Description: No Plan Pschychiatric History:: Reports:: Anxiety, Depression Family Hx:: Cancer, Coronary Artery Disease Review of Systems - Review of Systems ROS General: no recent weight change, no fever, no sleep disturbances Respiratory: no cough, no shortness of air, no recurring pulmonary infections Cardiovascular/Peripheral Vascular: No chest pain, No palpitations, no edema, no shortness of breath. Gastrointestinal: no incontinence, normal bowel movements reported Genitourinary: no incontinence Musculoskeletal: Back pain, leg pain Psychiatric: normal mood/ affect Neurological: [denies weakness in extremities], [denies balance issues] Meds Home Medications Medication Instructions Recorded Confirmed Type Albuterol Sulfate [Proair Hfa 2 puffs INHALATION TID 08/06/17 08/06/17 History 90mcg/puff Inh] Aspirin [Aspirin 81mg chewable 81 mg PO DAILY 08/06/17 08/06/17 History tab] Citalopram Hydrobromide [Celexa 10 mg PO DAILY 08/06/17 08/06/17 History 10mg Tablet] Clotrimazole/Betamethasone Dip 1 applicatio TP BID 08/06/17 08/06/17 History [Clotrimazole-Betamethasone Lot] Dapagliflozin/Metformin HCl 2 tab PO DAILY 08/06/17 08/06/17 History [Xigduo Xr 10 mg-1,000 mg Tab] Gabapentin [Neurontin 600mg 600 tab PO BID 08/06/17 08/06/17 History
--- NOTE | 2018-07-13 12:42 | P.CONS_ITS ---
Assessment and Plan (1) Degenerative disc disease Current visit: Yes Status: Chronic Qualifiers: Spinal region: lumbar Qualified Code(s): M51.36 - Other intervertebral disc degeneration, lumbar region Category: Medical (2) Lumbar radiculopathy Current visit: Yes Status: Chronic Category: Medical Code(s): M54.16 - Radiculopathy, lumbar region (3) Compression fracture Current visit: No Status: Acute Category: Medical - Assessment and plan all Dx Assessment and Plan for all problems:: We will schedule an L4-L5 lumbar epidural steroid injection for the patient. I believe it would be beneficial given her symptomology. I will follow-up with the patient after injection reassess her symptoms at that time. Patient's been instructed to call the office if she has any issues prior to her next appointment. Dr. Schofield has reviewed this note and agrees with this plan of care. This note was dictated using voice recognition software and may contain errors or omissions HPI - Data of Consult Consult date: 07/13/18 Requesting Physician: Estephania Pugh APRN Primary Care Provider: Brendan Young MD - Consult Narrative Reason for consult: back pain History of present illness: Ms. Partida is a 53 year old female who presents today for consultation in regards to her low back pain. Patient states that her pain started several years ago. Patient states standing for long periods of time increases her pain while heating pad decreases her pain. She is tingling in bilateral legs. Patient has had a kyphoplasty in the past. Patient has tried and failed physical therapy. Patient is on an anti-inflammatory. She is continuing a home stretching program. Patient has not tried any injective therapy. Patient is not on any anticoagulation therapy CC: Estephania Pugh APRN [facility] History I have reviewed the patient's past medical history: Yes Medical History: Reports:: Anxiety, Depression, Diabetes Mellitus Type 2, Gastroesophageal Reflux Disease(GERD), Hyperlipidemia, Hypertension Denies:: Cancer, Diabetes Mellitus Type 1, Internal Pacemaker, MRSA, Seizures *Have you ever received a pneumonia vaccine?: No *Have you received a flu vaccine this season?: No Other Surgeries: Yes: Cholecystectomy, Dilation and Curettage. No: Pacemaker Amputation: No Fractures: No - *Social History Smoking Status: Never smoker Alcohol Intake: never *Occupational Status:: unemployed Housing: house Household Members: spouse *Travel in the last 8 weeks: None - Psychiatric History Expresses thoughts of harming self/others: None Suicide Plan Description: No Plan Pschychiatric History:: Reports:: Anxiety, Depression Family Hx:: Cancer, Coronary Artery Disease Review of Systems - Review of Systems ROS General: no recent weight change, no fever, no sleep disturbances Respiratory: no cough, no shortness of air, no recurring pulmonary infections Cardiovascular/Peripheral Vascular: No chest pain, No palpitations, no edema, no shortness of breath. Gastrointestinal: no incontinence, normal bowel movements reported Genitourinary: no incontinence Musculoskeletal: Back pain, leg pain Psychiatric: normal mood/ affect Neurological: [denies weakness in extremities], [denies balance issues] Meds Home Medications Medication Instructions Recorded Confirmed Type Albuterol Sulfate [Proair Hfa 2 puffs INHALATION TID 08/06/17 08/06/17 History
== END ==
PROVIDERS: PCP Family Medicine; Visit Provider Clinical Nurse Specialist Family Health
DX: M51.16 Intervertebral disc disorders with radiculopathy, lumbar region (principal); M84.40XD Pathological fracture, unspecified site, subsequent encounter for fracture with routine healing
CPT/HCPCS: 99202

== ENCOUNTER 2018-07-17 09:50 | Day surgery (SDC) | payer MEDICARE, SELFPAY ==
[2018-07-17 10:26] VITALS: BP 146/68; PULSE 93; RESP 18; O2SAT 93; BMI 44.9
[2018-07-17 10:44] LABS: POC Glucose,Bedside 168 (70-110)
[2018-07-17 10:52] VITALS: BP 153/72; PULSE 92; RESP 18; O2SAT 98
[2018-07-17 10:56] VITALS: BP 155/74; PULSE 92; RESP 18; O2SAT 98
--- NOTE | 2018-07-17 11:00 | HMH.PMPROC ---
- Procedure Date: 07/17/18 Time: 11:00 Anesthesiologist:: Jose Schofield MD Complications:: None Pre-procedure Diagnosis:: Degenerative disease of lumbar spine with lumbar radiculopathy symptoms Post-procedure Diagnosis:: Same Indications for Procedure:: This patient is a pleasant 53-year-old white female who we are treating for low back pain with lumbar radiculopathy symptoms. She had a previous compression fracture status post kyphoplasty last year. Most of her pain is in the low back radiating down into her hips and both legs. We will do a lumbar epidural steroid injection today to see if this will help alleviate her symptoms. Procedure Details:: Lumbar epidural steroid injection under fluoroscopy Informed consent was obtained and the risk and benefits of the procedure was explained to the patient. The patient was taken to the procedure room. The patient was placed prone on the procedure table. The patient was prepped and draped in sterile fashion. C-arm fluoroscopy was used to view the lumbar spine. Skin and subcutaneous tissues were anesthetized using lidocaine. I placed an 18-gauge epidural needle and advanced into the L4-L5 interspace using fluoroscopic guidance and [id number] to air. After confirmation of needle placement in the epidural space with dye I injected 2 mL of lidocaine 1.5% with Depo-Medrol 80 mg. Patient tolerated the procedure well with no complications. Plan and Disposition:: We will follow-up with her in 2 weeks. We will reevaluate her symptoms at that time.
[2018-07-17 11:10] VITALS: BP 104/64; PULSE 90; RESP 18; O2SAT 93
== END 2018-07-17 11:10 | disposition home or self-care (01) ==
LOC: SC.PAINP 09:51
PROVIDERS: PCP Family Medicine; Visit Provider Anesthesiology
DX: M51.16 Intervertebral disc disorders with radiculopathy, lumbar region (principal); E11.9 Type 2 diabetes mellitus without complications
CPT/HCPCS: 62323; 82962; J1040; Q9966

== ENCOUNTER → 2018-08-17 11:34 | Outpatient (POV) | payer MEDICARE, SELFPAY ==
--- NOTE | 2018-08-17 12:58 | P.CONS_ITS ---
[facility] Pain Management SOAP Note Subjective:: Patient is a pleasant 53-year-old white female who presents today for follow-up after lumbar epidural steroid injection. Patient's back is doing better however she is rating her pain an 8 out of 10 in her right shoulder. Patient has extreme point tenderness over her subacromial bursa. She is interested in trying an injection in regards to this. Patient is continuing anti- inflammatories and home stretching. ROS General: no recent weight change, no fever, no sleep disturbances Respiratory: no cough, no shortness of air, no recurring pulmonary infections Cardiovascular/Peripheral Vascular: No chest pain, No palpitations, no edema, no shortness of breath. Gastrointestinal: no incontinence, normal bowel movements reported Genitourinary: no incontinence Musculoskeletal: Right shoulder pain Psychiatric: normal mood/ affect back pain Neurological: [denies weakness in extremities], [denies balance issues] Objective:: Physical Exam General: Alert and oriented x3, no acute distress, pleasant and cooperative, [on room air] Lungs: Resps E/U, Symmetrical chest expansion, Eyes: PERRL Musculoskeletal: Flexion and extension of lumbar spine somewhat guarded secondary to pain, deep tendon reflexes normal, strength in upper and lower extremities [5/5], slightly antalgic gait noted, extreme point tenderness over right subacromial bursa. Neurological: speech clear, assistant pastry chef equal, no gross sensory deficits Assessment:: Bursitis, degenerative disc disease lumbar spine with lumbar radiculopathy Plan:: We will schedule right subacromial bursa injection for the patient to see if this is beneficial. After that she would like to move forward with an additional epidural steroid injection. Patient is not on any blood thinners. Patient is done well with epidurals in the past. We will follow-up with the patient reassess her symptoms after her injection. Dr. Schofield has reviewed this note and agrees with this plan of care. This note was dictated using voice recognition software and may contain errors or omissions
== END ==
PROVIDERS: PCP Family Medicine; Visit Provider Clinical Nurse Specialist Family Health
DX: M71.9 Bursopathy, unspecified (principal); M51.16 Intervertebral disc disorders with radiculopathy, lumbar region
CPT/HCPCS: 99212

== ENCOUNTER → 2018-09-15 11:13 | Outpatient (POV) | payer MEDICARE, SELFPAY ==
[2018-09-15 11:25] VITALS: BP 100/54; PULSE 81; RESP 18; O2SAT 98; BMI 43.2
--- NOTE | 2018-09-15 11:40 | P.CONS_ITS ---
[facility] Pain Management SOAP Note Subjective:: Patient is a 53-year-old white female who presents today for follow-up after subacromial bursa injection. Patient states she is having a 10 out of 10 pain all over her body from her neck to her low back. Patient did have one epidural which she stated was beneficial until lately. Patient is morbidly obese. And I feel like this is potentially a large part of her issue. Patient states that she is been to a dietitian however she decided that she was not going to follow their recommendations. Patient also originally stated she done physical therapy however on further assessment she stated that she did not do any physical therapy due to a co-pay she states I did it at home . I have a real concern in regards to the compliance of this patient. She is requesting additional narcotic medications. I told her that I do not believe that that would be beneficial for her at this time she is also on diazepam and gabapentin which may be concerning in regards to her weight gain. Patient rates her pain a 10 out of 10 when asked if she would like to go to the emergency room she stated no. Patient is requesting us to discuss her disability case with her Social Security office. At this point patient in regards to compliance of treatment has not fulfilled any treatment plans to completion other than pain medications. ROS General: no recent weight change, no fever, no sleep disturbances Respiratory: no cough, no shortness of air, no recurring pulmonary infections Cardiovascular/Peripheral Vascular: No chest pain, No palpitations, no edema, no shortness of breath. Gastrointestinal: no incontinence, normal bowel movements reported Genitourinary: no incontinence Musculoskeletal: Back pain, leg pain, neck pain, arm pain Psychiatric: normal mood/ affect Neurological: Patient states she has weakness in her right arm and bilateral legs. Objective:: Physical Exam General: Alert and oriented x3, no acute distress, pleasant and cooperative, [on room air] Lungs: Resps E/U, Symmetrical chest expansion, Eyes: PERRL Musculoskeletal: Flexion and extension of cervical and lumbar spine somewhat guarded secondary to pain, deep tendon reflexes normal, strength in upper and lower extremities [5/5], [abnormal gait noted] Neurological: speech clear, executive officer special warfare team equal, no gross sensory deficits Assessment:: Degenerative disc disease cervical and lumbar spine with radiculopathy Plan:: Patient had a long discussion in regards to nutrition. However she has been seen by a dietitian in the past and she did not follow any recommendations. Patient claimed that she went to physical therapy however after further discussion she did not. Patient states she is going to start silver sneakers . Patient is wanting more narcotic medications I have some concerns in regards to her compliance with any kind of treatment program. At this point she has not failed conservative measures. She did get some relief from her L4-L5 epidural steroid injection may be beneficial to repeat this. Also will get a new MRI of her neck to see if there is been any changes due to the weakness in her right arm. Dr. Schofield has reviewed this note and agrees with this plan of care. This note was dictated using voice recognition software and may contain errors or omissions
== END ==
PROVIDERS: PCP Family Medicine; Visit Provider Clinical Nurse Specialist Family Health
DX: M50.30 Other cervical disc degeneration, unspecified cervical region (principal); M51.16 Intervertebral disc disorders with radiculopathy, lumbar region
CPT/HCPCS: 99212

== ENCOUNTER → 2018-09-24 12:20 | Outpatient (CLI) | payer MEDICARE, SELFPAY ==
--- NOTE | 2018-09-24 12:23 | MR_ITS ---
MR cervical spine wo con, MR 3-d myelogram/MRCP HISTORY: RT Shoulder pain. RT sided neck pain. X3-4wks. ITS.REASON: NECK PAIN ORDERING PHYSICIAN: Estephania Pugh APRN PATIENT AGE: 53 years Comparison: CT 08-06-17 TECHNIQUE: Standard multiplanar multiecho sequences are performed without contrast. 3-D MIP and myelographic images are also rendered and reviewed FINDINGS: There is normal alignment. Craniocervical junction has an unremarkable appearance. C2-C3: There is mild bilateral uncovertebral hypertrophy with mild right foraminal narrowing. C3-C4: Mild degenerative disc disease. Mild left foraminal narrowing from uncovertebral hypertrophy. C4-C5: Degenerative disc disease with a medium-sized left paracentral and foraminal disc osteophyte complex causing moderate left-sided lateral recess and moderate to severe left-sided foraminal narrowing. There is minimal flattening upon the anterior aspect of the cord on the left and severe left-sided foraminal narrowing. C5-C6: Mild degenerative disc disease. C6-C7: Unremarkable. C7-T1: There is a question of a small disc protrusion in the foraminal region on the right at C7-T1 as seen on the axial T2 images.. Slight increased T2 signal along the posterior aspect of the T2 vertebral body and could be due to a small hemangioma IMPRESSION: 1. Mild multilevel cervical spondylosis. Degenerative disc disease with uncovertebral hypertrophy with varying areas of foraminal narrowing. PLEASE SEE ABOVE FOR DETAILED DESCRIPTION AT EACH LEVEL. 2. Degenerative disc disease at C4-C5 with a medium-sized left paracentral and foraminal disc osteophyte complex causing moderate left-sided lateral recess and moderate to severe left-sided foraminal narrowing. There is minimal flattening upon the anterior aspect of the cord on the left and severe left-sided foraminal narrowing 3. There is a question of a small right foraminal disc protrusion at C7-T1 .
--- NOTE | 2018-09-24 13:33 | XR_ITS ---
XR shoulder RT min 2V HISTORY: ITS.REASON: RT SHOULDER PAIN ORDERING PHYSICIAN: Estephania Pugh APRN PATIENT AGE: 53 years Comparison: None FINDINGS: The glenohumeral joint has an unremarkable appearance. Mild hypertrophic changes are present at the acromioclavicular joint consistent with osteoarthritic change with some subarticular cystic change of the distal clavicle. IMPRESSION: Osteoarthritis of the AC joint
== END ==
PROVIDERS: PCP Family Medicine; Visit Provider Clinical Nurse Specialist Family Health
DX: M54.2 Cervicalgia (principal)
CPT/HCPCS: 72141; 73030; 76376

== ENCOUNTER → 2018-10-08 08:23 | Outpatient (CLI) | payer MEDICARE, SELFPAY ==
[2018-10-08 10:21] LABS: Alanine Aminotransferase 30 U/L (12-78); Albumin Level 3.4 gm/dL (3.4-5.0); Albumin/Globulin Ratio 0.9 (1.1-1.8); Alkaline Phosphatase 81 U/L (46-116); Anion Gap 11.9 mEq/L (5-15); Aspartate Amino Transferase 9 U/L (15-37); Bilirubin,Total 0.3 mg/dL (0.2-1.0); Blood Urea Nitrogen 17 mg/dL (7-18); Calcium 9.5 mg/dL (8.5-10.1); Carbon Dioxide 34 mmol/L (21.0-32.0); Chloride 101 mmol/L (98-107); Creatinine,Serum 0.87 mg/dL (0.55-1.02); Estimated Glomerular Filt Rate 68 ml/min (>60); GFR (African American) 82 ML/MIN (>60); Globulin 3.9 gm/dl (1.3-3.2); Glucose 126 mg/dL (74-106); Potassium 3.9 mmoL/L (3.5-5.1); Sodium 143 mmol/L (136-145); Total Protein,Serum 7.3 gm/dL (6.4-8.2)
== END ==
PROVIDERS: Visit Provider Family Medicine
DX: I10 Essential (primary) hypertension (principal)
CPT/HCPCS: 36415; 80053

== ENCOUNTER → 2018-11-02 10:44 | Outpatient (POV) | payer MEDICARE, SELFPAY ==
[2018-11-02 12:31] VITALS: BP 107/55; PULSE 86; RESP 18; O2SAT 98; BMI 42.7
--- NOTE | 2018-11-02 12:32 | HMH.PAINSOAP ---
[facility] Pain Management SOAP Note Subjective:: Patient is a 53-year-old white female who we are treating for neck and shoulder pain along with low back pain and lumbar radiculopathy. Patient has x-rays of her shoulder showing some AC arthritis and degenerative changes. She is following up after lumbar epidural steroid injection. She states it has not helped she states that none of the injections we have done have been very beneficial to her she rates her pain today an 8 out of 10 stating her pain is all over. Patient is morbidly obese we discussed healthy eating habits several times and I encouraged her to lose weight however she has not been able to follow through through this. Patient stated that she is done physical therapy however she has not stating that she could not pay for co-pay so she just did it at home . I have concerns in regards to compliance of the patient. She is requested an additional narcotics in the past I discussed with her that that would not be appropriate at this time. She is on diazepam and gabapentin which is a concern to me in regards to her weight gain. Patient has been seen by breaker hand however she did not follow any of their recommendations. Patient is pursuing disability. At this point patient in regards to compliance of treatment has not fulfilled any treatment plans to completion except for pain medication. Patient states most of her pain is in her shoulder we discussed a surgical consult she states I do not want surgery. I discussed with her that at this point we are not going to continue injection therapy if she is not getting any relief from it. On arrival into the room patient was asleep she had to be aroused by her again I have some concerns in regards to her diazepam and gabapentin use ROS General: no recent weight change, no fever, no sleep disturbances Respiratory: no cough, no shortness of air, no recurring pulmonary infections Cardiovascular/Peripheral Vascular: No chest pain, No palpitations, no edema, no shortness of breath. Gastrointestinal: no incontinence, normal bowel movements reported Genitourinary: no incontinence Musculoskeletal: Shoulder pain, neck pain, back pain Psychiatric: normal mood/ affect Neurological: [denies weakness in extremities], [denies balance issues] Objective:: Physical Exam General: Alert and oriented x3, no acute distress, pleasant and cooperative, [on room air] Lungs: Resps E/U, Symmetrical chest expansion, Eyes: PERRL Musculoskeletal: Flexion and extension of lumbar spine somewhat guarded secondary to pain, deep tendon reflexes normal, strength in upper and lower extremities [5/5], [abnormal gait noted] Neurological: speech clear, environmental aide equal, no gross sensory deficits Assessment:: Degenerative disc disease cervical and lumbar spine with radiculopathy, right shoulder pain Plan:: We will send the patient to Ortho for consultation in regards to her shoulder. At this point we have exhausted injection options for her. Dr. Schofield has reviewed this note and agrees with this plan of care. This note was dictated using voice recognition software and may contain errors or omissions Pain Management Hx Components *Have you ever received a pneumonia vaccine?: Yes *Have you received a flu vaccine this season?: Yes - *Social History *Occupational Status:: other *Travel in the last 8 weeks: None
--- NOTE | 2018-11-02 12:36 | P.CONS_ITS ---
[facility] Pain Management SOAP Note Subjective:: Patient is a 53-year-old white female who we are treating for neck and shoulder pain along with low back pain and lumbar radiculopathy. Patient has x-rays of her shoulder showing some AC arthritis and degenerative changes. She is following up after lumbar epidural steroid injection. She states it has not helped she states that none of the injections we have done have been very beneficial to her she rates her pain today an 8 out of 10 stating her pain is all over. Patient is morbidly obese we discussed healthy eating habits several times and I encouraged her to lose weight however she has not been able to follow through through this. Patient stated that she is done physical therapy however she has not stating that she could not pay for co-pay so she just did it at home . I have concerns in regards to compliance of the patient. She is requested an additional narcotics in the past I discussed with her that that would not be appropriate at this time. She is on diazepam and gabapentin which is a concern to me in regards to her weight gain. Patient has been seen by video clerk however she did not follow any of their recommendations. Patient is pursuing disability. At this point patient in regards to compliance of treatment has not fulfilled any treatment plans to completion except for pain medication. Patient states most of her pain is in her shoulder we discussed a surgical consult she states I do not want surgery. I discussed with her that at this point we are not going to continue injection therapy if she is not getting any relief from it. On arrival into the room patient was asleep she had to be aroused by her again I have some concerns in regards to her diazepam and gabapentin use ROS General: no recent weight change, no fever, no sleep disturbances Respiratory: no cough, no shortness of air, no recurring pulmonary infections Cardiovascular/Peripheral Vascular: No chest pain, No palpitations, no edema, no shortness of breath. Gastrointestinal: no incontinence, normal bowel movements reported Genitourinary: no incontinence Musculoskeletal: Shoulder pain, neck pain, back pain Psychiatric: normal mood/ affect Neurological: [denies weakness in extremities], [denies balance issues] Objective:: Physical Exam General: Alert and oriented x3, no acute distress, pleasant and cooperative, [on room air] Lungs: Resps E/U, Symmetrical chest expansion, Eyes: PERRL Musculoskeletal: Flexion and extension of lumbar spine somewhat guarded secondary to pain, deep tendon reflexes normal, strength in upper and lower extremities [5/5], [abnormal gait noted] Neurological: speech clear, roll setter equal, no gross sensory deficits Assessment:: Degenerative disc disease cervical and lumbar spine with radiculopathy, right shoulder pain Plan:: We will send the patient to Ortho for consultation in regards to her shoulder. At this point we have exhausted injection options for her. Dr. Schofield has reviewed this note and agrees with this plan of care. This note was dictated using voice recognition software and may contain errors or omissions Pain Management Hx Components *Have you ever received a pneumonia vaccine?: Yes *Have you received a flu vaccine this season?: Yes - *Social History *Occupational Status:: other *Travel in the last 8 weeks: None
== END ==
PROVIDERS: PCP Family Medicine; Visit Provider Clinical Nurse Specialist Family Health
DX: M50.10 Cervical disc disorder with radiculopathy, unspecified cervical region (principal); M51.36 Other intervertebral disc degeneration, lumbar region; M25.511 Pain in right shoulder
CPT/HCPCS: 99212

== ENCOUNTER → 2019-02-22 16:09 | Outpatient (CLI) | payer MEDICARE, SELFPAY ==
--- NOTE | 2019-02-22 16:15 | MM_ITS ---
PROCEDURE: MM DIG SCREENING MAMM BI W/CAD CLINICAL INDICATION: SCREENING There is a history of breast cancer patient's mother. COMPARISON: [facility] DIG MAMM-SCREEN [facility]ILLIAN from 12/12/2015 [facility] DIG MAMM-SCREEN [facility] W/CAD from 12/24/2016 [facility] MM Dig screening mamm BI w/CAD from 01/21/2018 TECHNIQUE: Standard CC and MLO images were obtained. R2 CAD reviewed. FINDINGS: Breasts are composed primarily of fat with scattered fibroglandular densities throughout each breast. There is a stable tiny nodular density near the axillary tail right breast. There is no suspicious lesion and no suspicious microcalcifications. IMPRESSION: Fatty type breast parenchyma with no suspicious lesions seen BI-RAD Category: 2 Benign Finding(s) FOLLOW-UP: 1YR 1 Year Follow-up (A letter has been sent to the patient regarding results of the study.) Dictated by: Dr. Ezra Newberry MD 02/25/2019 16:[address] Ezra Newberry MD in [place] 02/25/2019 16:16
== END ==
PROVIDERS: PCP Family Medicine; Visit Provider Family Medicine
DX: Z12.31 Encounter for screening mammogram for malignant neoplasm of breast (principal)
CPT/HCPCS: 77067

== ENCOUNTER → 2019-03-18 07:11 | Outpatient (CLI) | payer MEDICARE, SELFPAY ==
[2019-03-18 07:19] LABS: Adenovirus F 40/41, stool Not Detected (NotDetected); Astrovirus Not Detected (NotDetected); Campylobacter Not Detected (NotDetected); Clostridium Difficile A/B, PCR Not Detected (NotDetected); Cryptosporidium Not Detected (NotDetected); Cyclospora Cayetanesis Not Detected (NotDetected); Entamoeba histolytica Not Detected (NotDetected); Enteroaggregative E coli Not Detected (NotDetected); Enteropathogenic E coli Not Detected (NotDetected); Enterotoxigenic E coli Not Detected (NotDetected); Giardia lamblia Not Detected (NotDetected); Norovirus Not Detected (NotDetected); Plesimonas Shigalloides, PCR Not Detected (NotDetected); Rotavirus A Not Detected (NotDetected); Salmonella, PCR Not Detected (NotDetected); Sapovirus Not Detected (NotDetected); Shiga-like toxin E coli Not Detected (NotDetected); Shigella Enterovasive E coli Not Detected (NotDetected); Vibrio Cholerae Not Detected (NotDetected); Vibrio, PCR Not Detected (NotDetected); Yersinia Entercolitica, PCR Not Detected (NotDetected)
== END ==
PROVIDERS: Visit Provider Family Medicine
DX: K52.9 Noninfective gastroenteritis and colitis, unspecified (principal)
CPT/HCPCS: 87506

== ENCOUNTER → 2019-04-09 14:46 | Outpatient (CLI) | payer MEDICARE, SELFPAY ==
[2019-04-09 16:50] VITALS: BMI 43.2
== END ==
PROVIDERS: PCP Family Medicine; Visit Provider Family Medicine
DX: Z71.3 Dietary counseling and surveillance (principal); E11.9 Type 2 diabetes mellitus without complications; Z79.4 Long term (current) use of insulin
CPT/HCPCS: 97802

== ENCOUNTER 2019-05-18 14:00 | Outpatient (RCR) | payer MEDICARE, SELFPAY ==
--- NOTE | 2019-04-20 10:43 | HMH.OTOPEV ---
OT Inpatient Evaluation Rehab OT Outpatient Eval Start: 04/20/19 10:26 Freq: Status: Active Protocol: Document 04/20/19 10:26 [facility]ALL (Rec: 04/20/19 10:43 [id number] Electronically Signed By Debby Rushing OT 04/20/19 10:26 Outpatient Therapy Subjective History Subjective History Pt is a 53 year old female who reports to therapy for initial evaluation to right shoulder. Pt had a fall ~7 months ago and landed on her right shoulder. Since her fall, pt's shoulder has become more painful and limited in function. Pt does demonstrate with decreased AROM and strength at right shoulder. Pt will continue to be seen twice a week in order to address all deficits. Chief Complaint Pain,Stiff,Weakness Symptom Type Ache,Throb,Sharp,Dull Symptoms Relieved By Rest/Positioning Symptoms Aggravated By Physical Activity,Twisting, Lifting Prior Functional Limitations None Current Functional Limitations Reaching,Lifting,Housework, Dressing,Sleeping,Recreation Activity Symptom Description Constant but Variable Level of pain today (0-10) 4 Pain scale - at its best (0-10) 2 Pain scale - at its worst (0-10) 8 Shoulder/Elbow Eval Shoulder Objective Measurements Shoulder ROM Right Shoulder Abduction Active Range of 75 degrees Motion (degrees) Shoulder Flexion Active Range of Motion 90 degrees (degrees) Query Text: Shoulder External Rotation Active Range 65 degrees of Motion (degrees) Shoulder Internal Rotation Active Range 50 degrees of Motion (degrees) pain with active ROM shoulder exam right standard pain with passive ROM shoulder exam right standard decreased ROM shoulder exam standard right Shoulder MMT Shoulder Abduction Strength Grade 3+ Fair+ Shoulder Extension Strength Grade 4- Good- Shoulder Flexion Strength Grade 4- Good- Shoulder External Rotation Strength 3+ Fair+ Grade Shoulder Internal Rotation Strength 3+ Fair+ Grade Shoulder Strength Patient Testing Sitting Position Shoulder Special Tests impingement sign present shoulder exam right standard Shoulder Empty Can (Supraspinatus) Test Posit
== END 2019-05-18 14:05 | disposition home or self-care (01) ==
LOC: OT 14:00
PROVIDERS: Visit Provider Orthopaedic Surgery
DX: M25.511 Pain in right shoulder (principal)
CPT/HCPCS: 97014; 97110; 97140; 97166; G0283

== ENCOUNTER → 2019-05-27 10:09 | Outpatient (CLI) | payer MEDICARE, SELFPAY ==
--- NOTE | 2019-05-27 10:15 | XR_ITS ---
PROCEDURE: XR SHOULDER RT MIN 2V CLINICAL INDICATION: right shoulder pain COMPARISON: [id number] XR shoulder LT min 2V from 03/26/2017 FINDINGS: There is no acute fracture dislocation or destructive lesion. Mild acromioclavicular joint arthropathy is noted. IMPRESSION: No acute findings. Mild AC joint arthropathy. Dictated by: Wali Dooley 05/27/2019 15:18 Electronically signed by Wali Dooley in [place] 05/27/2019 15:18
== END ==
PROVIDERS: PCP Family Medicine; Visit Provider Orthopaedic Surgery
DX: M25.511 Pain in right shoulder (principal)
CPT/HCPCS: 73030

== ENCOUNTER → 2019-06-01 10:05 | Outpatient (CLI) | payer MEDICARE, SELFPAY ==
--- NOTE | 2019-06-01 10:06 | MR_ITS ---
PROCEDURE: MR SHOULDER RT WO CON CLINICAL INDICATION: evalaute for a rotator cuff tear Right shoulder pain, limited range of motion, recent fall with injury and pain COMPARISON: XR SHOULDER RT MIN 2V from 05/27/2019 TECHNIQUE: Routine multiplanar multi echo sequences are performed without gadolinium enhancement. FINDINGS: There are hypertrophic changes of the acromioclavicular joint with mild impingement upon the musculotendinous junction of the supraspinatus tendon. No subacromial stenosis. There is tendinopathy/tendinosis of the infraspinatus tendon with thickening of the infraspinatus tendon and slight increased T2 signal. The subscapularis and teres minor tendons appear intact. The supraspinatus tendon is smaller than expected. There are fibers intact anteriorly but not visible posteriorly. Some of this appearance could be due to the positioning. Bicipital tendon is in place. No obvious labral tear. No effusions. No fracture. IMPRESSION: 1. There is abnormal appearance of the supraspinatus tendon. A complete tear is not felt to be present however, the supraspinatus tendon is smaller than expected with suspected tear along the posterior aspect of the supraspinatus tendon. MR arthrography may confirm these findings. 2. Tendinopathy/tendinosis of the infraspinatus tendon. 3. Acromioclavicular hypertrophy with some mild impingement upon the supraspinatus musculotendinous junction Dictated by: Nhan Sadler MD 06/03/2019 10:07 Electronically signed by Nhan Sadler MD in [place] 06/03/2019 10:07
== END ==
PROVIDERS: PCP Family Medicine; Visit Provider Orthopaedic Surgery
DX: M19.011 Primary osteoarthritis, right shoulder (principal); M25.511 Pain in right shoulder
CPT/HCPCS: 73221

== ENCOUNTER → 2019-12-29 09:10 | Outpatient (CLI) | payer MEDICARE, SELFPAY | PROVIDERS: PCP Family Medicine; Visit Provider Family Medicine | DX: Z71.3 Dietary counseling and surveillance (principal); E11.9 Type 2 diabetes mellitus without complications | CPT/HCPCS: 97802 ==

== ENCOUNTER 2020-01-07 08:42 | Outpatient (RCR) | payer MEDICARE, SELFPAY | END 2020-01-07 09:45 | disposition home or self-care (01) | LOC: PT 08:42 | PROVIDERS: PCP Family Medicine; Visit Provider Family Medicine | DX: R26.89 Other abnormalities of gait and mobility (principal); E11.42 Type 2 diabetes mellitus with diabetic polyneuropathy; E66.01 Morbid (severe) obesity due to excess calories; Z79.4 Long term (current) use of insulin | CPT/HCPCS: 97542 ==

== ENCOUNTER → 2020-03-13 14:14 | Outpatient (CLI) | payer MEDICARE, SELFPAY | PROVIDERS: PCP Family Medicine; Visit Provider Family Medicine | DX: G47.33 Obstructive sleep apnea (adult) (pediatric) (principal); I10 Essential (primary) hypertension; G47.00 Insomnia, unspecified; E66.9 Obesity, unspecified; Z68.41 Body mass index [BMI] 40.0-44.9, adult | CPT/HCPCS: G0399 ==

== ENCOUNTER → 2020-04-27 11:37 | Outpatient (CLI) | payer MEDICARE, SELFPAY ==
[2020-04-27 13:03] LABS: Basophils # 0.1 K/mm3 (0-0.2); Basophils % 0.7 % (0.1-2.0); Eosinophils # 0.1 K/mm3 (0.0-0.4); Eosinophils % 1.2 % (0.1-12.0); Hematocrit 50.3 % (37.0-47.0); Lymphocytes # 1.7 K/mm3 (0.7-4.5); Lymphocytes % 17.5 % (10-50); Mean Corpuscular HGB Conc 31.8 g/dL (31.8-35.4); Mean Corpuscular Hemoglobin 31.2 pg (27.0-31.2); Mean Corpuscular Volume 98.1 fl (81-99); Mean Platelet Volume 8.1 fl (7.4-10.4); Monocytes # 0.3 K/mm3 (0.1-1.0); Monocytes % 3.3 % (1.7-9.3); Neutrophils # 7.4 K/mm3 (1.8-7.8); Neutrophils % 77.3 % (37.0-80.0); Platelet Count 289 K/mm3 (142-424); Red Blood Count 5.13 M/mm3 (4.20-5.40); Red Cell Distribution Width 13.5 % (11.5-17.5); White Blood Count 9.6 K/mm3 (4.8-10.8)
[2020-04-27 13:59] LABS: Strep Scrn Group A (Rapid) Negative (Negative)
== END ==
PROVIDERS: PCP Family Medicine; Visit Provider Physician Assistant
DX: Z20.822 Contact with and (suspected) exposure to COVID-19 (principal); R79.1 Abnormal coagulation profile
CPT/HCPCS: 36415; 85025; 87430; U0003

== ENCOUNTER → 2020-11-10 12:50 | Outpatient (CLI) | payer MEDICARE, SELFPAY ==
[2020-11-10 13:27] LABS: Basophils # 0.1 K/mm3 (0-0.2); Basophils % 1.1 % (0.1-2.0); Eosinophils # 0.1 K/mm3 (0.0-0.4); Eosinophils % 2.4 % (0.1-12.0); Hematocrit 49.1 % (37.0-47.0); Hemoglobin 15.3 g/dL (12.2-16.2); Lymphocytes # 0.6 K/mm3 (0.7-4.5); Lymphocytes % 11.7 % (10-50); Mean Corpuscular HGB Conc 31.1 g/dL (31.8-35.4); Mean Corpuscular Volume 102.8 fl (81-99); Mean Platelet Volume 8.1 fl (7.4-10.4); Monocytes # 0.3 K/mm3 (0.1-1.0); Monocytes % 5.2 % (1.7-9.3); Neutrophils # 4.3 K/mm3 (1.8-7.8); Neutrophils % 79.6 % (37.0-80.0); Platelet Count 197 K/mm3 (142-424); Red Blood Count 4.77 M/mm3 (4.20-5.40); Red Cell Distribution Width 13.1 % (11.5-17.5); White Blood Count 5.4 K/mm3 (4.8-10.8)
== END ==
PROVIDERS: PCP Physician Assistant; Visit Provider Physician Assistant
DX: Z20.822 Contact with and (suspected) exposure to COVID-19 (principal); U07.1 COVID-19
CPT/HCPCS: 36415; 85025; C9803; U0003; U0005

== ENCOUNTER 2020-11-17 18:21 | Inpatient (IN) | payer MEDICARE, SELFPAY ==
[2020-11-17] VITALS (16 sets, daily range): BP systolic 85–138; BP diastolic 49–85; PULSE 71–94; RESP 16–36; O2SAT 70–95; BMI 41.1
--- NOTE | 2020-11-17 18:21 | ECG_ITS ---
APPROVED REPORT Exam: Resting ECG HR:86 bpm ECG Measurements Heart Rate 86 AXES VA 130 P 14 QRSd 68 QRS -41 QT 368 T 77 QTc 440 Conclusion Normal sinus rhythm Left axis deviation Abnormal ECG Electronically signed by : Ace Patel MD 11/19/2020 20:56:04
--- NOTE | 2020-11-17 18:25 | HMH.EDGENADL ---
ED Disposition Clinical Impression: COPD (chronic obstructive pulmonary disease), COVID-19, Bilateral pneumonia Disposition: Admitted As Inpatient Condition on Discharge: Fair Referrals: Kaye Salinas PA [Primary Care Provider] - - Critical Care Critical Care Time: No Attestation: On , the high probability of a clinically significant, sudden or life threatening deterioration of the following system(s) required my full and direct attention, intervention and personal management. The time I documented below is in addition to time spent performing reported procedures but includes the following listed in this critical care notation. Medical Decision Making - Medical Records MR Comment: Patient initially told me she was not vaccinated. Then she told me she got only 1 shot she did not receive the second shot of the vaccine according to her card. I called Dr. Young and he agreed on admissions. Patient initially was agitated so she was given Haldol and after that she was able to tolerate BiPAP machine. - Edwin Inquiry Pt receiving controlled substance: No Edwin was queried for this patient: No Vital Signs: 11/17/20 18:22 Pulse Rate [Apical] 89 Respiratory Rate 36 H Blood Pressure [Right Arm] 111/83 Blood Pressure Mean [Right Arm] 92 Blood Pressure Source [Right Arm] Automatic Cuff Blood Pressure Position [Right Arm] Sitting 02 Sat by Pulse Oximetry 88 L Oxygen Delivery Method BiPAP - Lab Data Lab Results 11/17/20 18:20: WBC 9.1, RBC 4.80, Hgb 15.2, Hct 48.5 H, MCV 101.2 H, MCH 31.7 H, MCHC 31.3 L, RDW 14.4, Plt Count 260, MPV 9.9, Neut % (Auto) 89.6 H, Lymph % (Auto) 6.0 L, [place] % (Auto) 3.4, Eos % (Auto) 0.1, Baso % (Auto) 1.0, Neut # (Auto) 8.1 H, Lymph # (Auto) 0.5 L, [place] # (Auto) 0.3, Eos # (Auto) 0.0, Baso # (Auto) 0.1, Total Counted 100, Neutrophils % (Manual) 94 H, Lymphocytes % (Manual) 3 L, Monocytes % (Manual) 3, Platelet Estimate Normal, Hypochromasia 1+, Macrocytosis 1+ 11/17/20 18:20: Sodium 133 L, Potassium 4.6, Chloride 91 L, Carbon Dioxide 25, Anion Gap 21.6 H, BUN 64 H, Creatinine 3.20 H, Estimated Creat Clear 33, Estimated GFR 15 L*, Est GFR ( Amer) 18 L*, Glucose 295 H, Calcium 8.0 L, Total Bilirubin 0.7, AST 82 H, ALT 42, Alkaline Phosphatase 114, Total Protein 7.2, Albumin 3.6, Globulin 3.6 H, Albumin/Globulin Ratio 1.0 L 11/17/20 18:41: Specimen Source Right radial, O2 % 100%, ABG pH 7.32 L, ABG pCO2 37.9, ABG pO2 68.9 L, ABG HCO3 18.9 L, ABG Total CO2 20.1 L, ABG O2 Saturation 92, ABG Base Excess -7.2 L, Nhan Test Acceptable, PEEP 20 11/17/20 19:56: Lactate 2.7 H Result diagrams: 11/17/20 18:20 11/17/20 18:20 Orders (Tests/Meds): ED MEDICATIONS Generic Name Dose Route Start Last Admin Trade Name Freq PRN Reason Stop Dose Admin Aztreonam 1 gm/ Sodium 50 mls @ 100 mls/hr 11/17/20 20:15 Chloride IV 12/01/20 20:14 Q8H SHARATH Levofloxacin/Dextrose 500 mg in 100 mls @ 100 mls/hr 11/17/20 20:15 Levaquin 500mg/100ml Premix IV 12/01/20 20:14 Q24H SHARATH Sodium Chloride 1,000 mls @ 999 mls/hr 11/17/20 20:15 Sod Chlor 0.9% 1000ml Bag IV 11/17/20 21:15 .Q1H1M SHARATH Discontinued Medications Generic Name Dose Route Start Last Admin Trade Name Freq PRN Reason Stop Dose Admin Haloperidol Lactate 5 mg 11/17/20 19:24 11/17/20 19:25 Haloperidol Lactate 5 Mg/Ml Vial IV 11/17/20 19:25 5 mg ONCE ONE Administration ORDERS Category Date Time Status Blood Culture Stat Micro 11/17/20 19:56 Received General Adult HPI - General Stated complaint: SOA COVID + Time Seen by Provider: 11/17/20 18:25 Description of Symptoms (Recalled from ER Triage Doc. by RN): Patient is 55-year-old female with a history of COPD and diabetes. She was diagnosed with Covid 19 about 2 weeks ago. She started having increased shortness of breath and increased cough for the past few days. She is complaining of generalized weakness. She called EMS when they arrived the
[2020-11-17 18:44] LABS: ABG Base Excess -7.2 mmol/L (-2.4-2.3); ABG HCO3 18.9 mmhg (22.0-26.0); ABG Oxygen Saturation 92 % (90-100); ABG PCO2 37.9 mmhg (35.0-45.0); ABG PH 7.32 mmol/L (7.35-7.45); ABG PO2 68.9 mmhg (80-100); ABG TCO2 20.1 mmhg (23-27)
[2020-11-17 18:45] LABS: Oxygen 100% %; PEEP 20; Pressure Support 18
[2020-11-17 18:46] LABS: Allen's Test Acceptable; Source Right Radial
--- NOTE | 2020-11-17 19:16 | XR_ITS ---
PROCEDURE INFORMATION: Exam: XR Chest Exam date and time: 11/17/2020 7:16 PM Age: 55 years old Clinical indication: Dyspnea and shortness of breath; Patient HX: PT is covid positive with severe SOA TECHNIQUE: Imaging protocol: XR of the chest. Views: 1 view. COMPARISON: CR CXR2 XR chest AP 08/06/2017 10:10 AM FINDINGS: Pleural spaces: Unremarkable. No pleural effusion. No pneumothorax. Heart/Mediastinum: Unremarkable. No cardiomegaly. Bones/joints: Unremarkable. Lungs: Habitus/technique limits exam. Moderate right basilar airspace opacities are seen. Scattered airspace opacities elsewhere. Hypoventilatory exam. IMPRESSION: Right greater than left airspace opacities worrisome for infection
[2020-11-17 19:21] LABS: Basophils # 0.1 K/mm3 (0-0.2); Eosinophils % 0.1 % (0.1-12.0); Hematocrit 48.5 % (37.0-47.0); Hemoglobin 15.2 g/dL (12.2-16.2); Lymphocytes # 0.5 K/mm3 (0.7-4.5); Mean Corpuscular HGB Conc 31.3 g/dL (31.8-35.4); Mean Corpuscular Hemoglobin 31.7 pg (27.0-31.2); Mean Corpuscular Volume 101.2 fl (81-99); Mean Platelet Volume 9.9 fl (7.4-10.4); Monocytes # 0.3 K/mm3 (0.1-1.0); Monocytes % 3.4 % (1.7-9.3); Neutrophils # 8.1 K/mm3 (1.8-7.8); Neutrophils % 89.6 % (37.0-80.0); Platelet Count 260 K/mm3 (142-424); Red Cell Distribution Width 14.4 % (11.5-17.5); White Blood Count 9.1 K/mm3 (4.8-10.8)
[2020-11-17 19:23] LABS: MANUAL DIFFERENTIAL MANUAL DIFFERENTIAL (MANUAL DIFF)
[2020-11-17 19:28] LABS: Alanine Aminotransferase 42 U/L (12-78); Albumin Level 3.6 g/dl (3.5-5.0); Alkaline Phosphatase 114 U/L (38-126); Anion Gap 21.6 mEq/L (5-15); Aspartate Amino Transferase 82 U/L (14-36); Bilirubin,Total 0.7 mg/dl (0.2-1.3); Blood Urea Nitrogen 64 mg/dl (7-17); Carbon Dioxide 25 mmol/L (22.0-30.0); Chloride 91 mmol/L (98-107); Creatinine Clearance Estimated 33 mL/min (50-200); Estimated Glomerular Filt Rate 15 ml/min (>60); GFR (African American) 18 ML/MIN (>60); Globulin 3.6 g/dL (1.3-3.2); Glucose 295 mg/dl (74-100); Potassium 4.6 mmoL/L (3.5-5.1); Sodium 133 mmol/L (136-145); Total Protein,Serum 7.2 g/dl (6.3-8.2)
[2020-11-17 19:46] LABS: Lymphocytes % 3 % (10-50); Monocytes % 3 % (2-9); Neutrophils % 94 % (42-76); Platelet Estimate Normal; Total Cells Counted 100
[2020-11-17 19:47] LABS: Hypochromasia 1+; Macrocytosis 1+
[2020-11-17 20:15] LABS: Lactic Acid 2.7 mmol/L (0.7-2.1)
--- NOTE | 2020-11-17 20:33 | PC.NURSE ---
called for bed assignment, was advised staffing wouldn't allow pt to leave ED at this time. pt will be admitted to a ribeiro'' bed and considered a bed-hold.
--- NOTE | 2020-11-17 20:49 | PC.NURSE ---
Pt put into gown and repositioned.
--- NOTE | 2020-11-17 21:00 | PC.NURSE ---
pt admitted to bedhold status, waiting on bed to open up on med/surg. pt is alert, oriented to self, place, however confused re: situation. lungs are diminished throughout, pt unable to tolerate bipap for long periods of time and removes the apparatus. attempted oxygen via n.c., and non-rebreather; contacted resp therapist for assist in meeting O2 demand. Pt is a fall risk; constantly moving and interchanging positions on the bed. Advised warehouse order filler of possible 1-on-1 need for assist. srna at bedside from m/s.
--- NOTE | 2020-11-17 21:10 | PC.NURSE ---
Pt put on non rebreather
--- NOTE | 2020-11-17 21:14 | PC.NURSE ---
Covid swab cancelled, recent positive results documented.
--- NOTE | 2020-11-17 22:24 | PC.NURSE ---
pt repositioned in bed
--- NOTE | 2020-11-17 22:40 | PC.NURSE ---
Respiratory called bc pt refused to keep non rebreather on. RT green put pt back on BiPAP
--- NOTE | 2020-11-17 22:53 | PC.NURSE ---
Pt put on non rebreather
[2020-11-17 23:46] LABS: POC Glucose,Bedside 263 (70-110)
[2020-11-17 23:55] LABS: Reflex Lactic Add Lactic Reflex
--- NOTE | 2020-11-17 23:58 | PC.NURSE ---
pt laying in bed. sitter at bedside.
[2020-11-18] VITALS (23 sets, daily range): BP systolic 90–151; BP diastolic 49–120; PULSE 64–100; RESP 14–42; TEMP 36.6–36.8; O2SAT 78–94; BMI 48.1
[2020-11-18 00:28] LABS: Lactic Acid Follow Up (RFLX 1) 3.1 mmol/L (0.7-2.1)
[2020-11-18 02:03] LABS: Reflex Lactic (2 hrs) Add Lactic Reflex
[2020-11-18 02:59] LABS: Lactic Acid Follow up (RFLX 2) 2.3 mmol/L (0.7-2.1)
[2020-11-18 03:35] LABS: POC Glucose,Bedside 264 (70-110)
[2020-11-18 07:42] LABS: Adenovirus,PCR Not Detected (NotDetected); Bordetella Pertussis Not Detected (NotDetected); Chlamydophila Pneumoniae, PCR Not Detected (NotDetected); Coronavirus 229E Not Detected (NotDetected); Coronavirus NL63 Not Detected (NotDetected); Coronavirus OC43 Not Detected (NotDetected); Coronovirus HKU1,PCR Not Detected (NotDetected); Human Metapneumovirus Not Detected (NotDetected); Influenza A, PCR Not Detected (NotDetected); Influenza AH1, 2009 Not Detected (NotDetected); Influenza AH1, PCR Not Detected (NotDetected); Influenza AH3,PCR Not Detected (NotDetected); Influenza B, PCR Not Detected (NotDetected); Mycoplasma Pneumoniae, PCR Not Detected (NotDetected); Parainfluenza 1, PCR Not Detected (NotDetected); Parainfluenza 2, PCR Not Detected (NotDetected); Parainfluenza 3, PCR Not Detected (NotDetected); Parainfluenza 4, PCR Not Detected (NotDetected); Respiratory Syncytial Virus Not Detected (NotDetected); Rhinovirus/Enterovirus Not Detected (NotDetected)
--- NOTE | 2020-11-18 07:42 | PC.NURSE ---
Pt restless and requesting bipap be taken off. Educated on the importance of bipap. Lab called for morning labs. Respiratory at bedside for ABG. Awaiting inpatient bed.
[2020-11-18 07:48] LABS: Basophils # 0.1 K/mm3 (0-0.2); Basophils % 0.5 % (0.1-2.0); Eosinophils % 0.2 % (0.1-12.0); Hemoglobin 15.5 g/dL (12.2-16.2); Lymphocytes # 0.3 K/mm3 (0.7-4.5); Lymphocytes % 2.5 % (10-50); Mean Corpuscular Hemoglobin 31.6 pg (27.0-31.2); Mean Corpuscular Volume 101.9 fl (81-99); Mean Platelet Volume 9.5 fl (7.4-10.4); Monocytes # 0.4 K/mm3 (0.1-1.0); Monocytes % 3.6 % (1.7-9.3); Neutrophils % 93.2 % (37.0-80.0); Platelet Count 259 K/mm3 (142-424); Red Blood Count 4.91 M/mm3 (4.20-5.40); Red Cell Distribution Width 14.3 % (11.5-17.5); White Blood Count 11.8 K/mm3 (4.8-10.8)
[2020-11-18 07:52] LABS: MANUAL DIFFERENTIAL MANUAL DIFFERENTIAL (MANUAL DIFF)
[2020-11-18 07:56] LABS: Alanine Aminotransferase 32 U/L (12-78); Albumin Level 3.3 g/dl (3.5-5.0); Albumin/Globulin Ratio 0.9 (1.1-1.8); Alkaline Phosphatase 122 U/L (38-126); Anion Gap 18.6 mEq/L (5-15); Aspartate Amino Transferase 92 U/L (14-36); Bilirubin,Total 0.6 mg/dl (0.2-1.3); Blood Urea Nitrogen 66 mg/dl (7-17); Calcium 7.7 mg/dl (8.4-10.2); Carbon Dioxide 22 mmol/L (22.0-30.0); Chloride 98 mmol/L (98-107); Creatinine Clearance Estimated 36 mL/min (50-200); Estimated Glomerular Filt Rate 16 ml/min (>60); GFR (African American) 19 ML/MIN (>60); Globulin 3.7 g/dL (1.3-3.2); Glucose 322 mg/dl (74-100); Potassium 4.6 mmoL/L (3.5-5.1); Sodium 134 mmol/L (136-145)
[2020-11-18 07:59] LABS: ABG Base Excess -8.5 mmol/L (-2.4-2.3); ABG HCO3 18.3 mmhg (22.0-26.0); ABG Oxygen Saturation 90 % (90-100); ABG PCO2 40.3 mmhg (35.0-45.0); ABG PH 7.28 mmol/L (7.35-7.45); ABG PO2 61.9 mmhg (80-100); ABG TCO2 19.5 mmhg (23-27)
[2020-11-18 08:03] LABS: Anisocytosis 1+; Lymphocytes % 4 % (10-50); Macrocytosis 1+; Monocytes % 1 % (2-9); Neutrophils % 94 % (42-76); Platelet Estimate Normal; Total Cells Counted 100
[2020-11-18 08:03] LABS: Allen's Test Non Applicable; Oxygen 100 %; Source Left Brachial; Vent Rate 20
[2020-11-18 08:07] LABS: Coronavirus 19 IgG Antibody Positive (Negative); Coronavirus 19 IgM Antibody Negative (Negative)
--- NOTE | 2020-11-18 08:17 | PC.NURSE ---
spoke with dr delatorre regarding bed assignment. ok for pt to go to neg pressure room does not need an icu bed.
--- NOTE | 2020-11-18 08:33 | PC.NURSE ---
due to pt's kft's is unable to receive iv contrast for ct.
--- NOTE | 2020-11-18 09:18 | PC.NURSE ---
report called to bharat/surgdelano rn
[2020-11-18 09:20] LABS: Coronavirus 19, PCR Detected (NotDetected)
--- NOTE | 2020-11-18 09:42 | CT_ITS ---
PROCEDURE INFORMATION: Exam: CT Chest Without Contrast; Diagnostic Exam date and time: 11/18/2020 9:42 AM Age: 55 years old Clinical indication: Shortness of breath; Patient HX: SOA, covid positive TECHNIQUE: Imaging protocol: Diagnostic computed tomography of the chest without contrast. Radiation optimization: All CT scans at this facility use at least one of these dose optimization techniques: automated exposure control; mA and/or kV adjustment per patient size (includes targeted exams where dose is matched to clinical indication); or iterative reconstruction. COMPARISON: CR XR CHEST PORTABLE 11/17/2020 7:28 PM FINDINGS: Lungs: Extensive bilateral pulmonary opacities primarily ground-glass in opacification and most compatible with severe Covid-19 pneumonitis. Pleural spaces: Unremarkable. No pneumothorax. No pleural effusion. Heart: Unremarkable. No cardiomegaly. No pericardial effusion. Aorta: Unremarkable. No aortic aneurysm. Lymph nodes: Several centimeter and subcentimeter mediastinal and hilar lymph nodes. Gallbladder and bile ducts: Status post cholecystectomy. Bones/joints: Unremarkable. No acute fracture. Soft tissues: Unremarkable. IMPRESSION: Extensive bilateral pulmonary opacities primarily ground-glass in opacification and most compatible with severe Covid-19 pneumonitis. Remainder of findings as described above.
--- NOTE | 2020-11-18 10:48 | PC.NURSE ---
blood pressure meds not given due to b/p of
--- NOTE | 2020-11-18 12:21 | HMH.PHAVTE ---
[facility] Pharmacy VTE Monitoring - Patient Demographics Admission date: 11/18/20 Report Date: 11/18/20 (B) Time: 12:21 Allergies/Adverse Reactions: Patient Allergies cephalexin [CEPHALEXIN] Allergy (Intermediate, Verified 06/10/19 09:30) I-HIVES Sulfa (Sulfonamide Antibiotics) Allergy (Unknown, Verified 06/10/19 09:30) Height: 1.6 m Weight: 123.3 kg Patient Problems: Current Active Problems COPD (chronic obstructive pulmonary disease) (Acute) COVID-19 (Acute) Bilateral pneumonia (Acute) - VTE Risk Labs: VTE Related Lab Results Hgb 15.5 g/dL (12.2-16.2) 11/18/20 07:37 Hct 50.0 % (37.0-47.0) H 11/18/20 07:37 Plt Count 259 K/mm3 (142-424) 11/18/20 07:37 BUN 66 mg/dl (7-17) H 11/18/20 07:37 Creatinine 3.00 mg/dl (0.52-1.04) H 11/18/20 07:37 Estimated Creat Clear 36 mL/min (50-200) 11/18/20 07:37 - Prophylaxis Types of VTE Prophylaxis: TEDS Knee High (TEDS ORDERED)
--- NOTE | 2020-11-18 14:06 | HMH.HP ---
*Admission Date: 11/18/20 *Chief complaint: SOA, COVID 19 POS *History of present illness: This 55-year-old white female tested Covid positive by PCR November 10 though she had had symptoms at least a week prior. Her symptoms started with upper respiratory symptoms primarily. Symptoms have progressed to shortness of air. She received the Covid 19 vaccine by Arina May 03, 2020. She is however diabetic and obese. She is on multiple medicines for her diabetes. She has a lot of chronic back pain. She underwent kyphoplasty in October 2017. She has difficulty ambulating and spends much time in a wheelchair. In the emergency room her initial sats were below 90. She was placed on BiPAP. She spent the night in the emergency room and was transferred to the floor the morning of 11/18. [facility] History Medical History: Reports:: Anxiety, Depression, Diabetes Mellitus Type 2, Gastroesophageal Reflux Disease(GERD), Hyperlipidemia, Hypertension Denies:: Cancer, Diabetes Mellitus Type 1, Internal Pacemaker, MRSA, Seizures *Have you ever received a pneumonia vaccine?: No *Have you received a flu vaccine this season?: No Other Medical History: Denies: Blood Transfusion Reaction Other Surgeries: Yes: Cholecystectomy (March 23, 2014), Colonoscopy (March 25, 2012), Dilation and Curettage, Other (Kyphoplasty November 05, 2017). No: Pacemaker Amputation: No Fractures: No - *Social History Last grade of school completed: 9th or 10th Smoking Status: Never smoker Alcohol Intake: never *Occupational Status:: other Housing: house Household Members: spouse *Travel in the last 8 weeks: None - Psychiatric History Expresses thoughts of harming self/others: None Pschychiatric History:: Reports:: Anxiety, Depression Family Hx:: Cancer, Coronary Artery Disease Review of Systems - Review of Systems Review of systems:: unable to obtain (Due to the patient being on BiPAP) Meds Home Medications Medication Instructions Recorded Confirmed Type Aspirin [Aspirin 81mg chewable 81 mg PO DAILY 08/06/17 11/18/20 History tab] Gabapentin [Neurontin 600mg 600 tab PO QID 08/06/17 11/18/20 History tablet] Insulin Glargine,Hum.rec.anlog 70 unit SQ DAILY 08/06/17 11/18/20 History [Kody Bella] Insulin NPH Hum/Reg Insulin Hm 20 unit SQ DAILY 08/06/17 11/18/20 History [Novolin 70-30 100 Unit/ml Vial] Potassium Chloride [Klor-Con 10mEq 20 meq PO DAILY 08/06/17 11/18/20 History tab] Sulindac 200 mg PO BID 08/06/17 11/18/20 History diazePAM [Valium 5mg tablets] 2.5 mg PO 0900,1200 08/06/17 11/18/20 History diazePAM [diazePAM 5mg Tablet] 5 mg PO HS 08/06/17 11/18/20 History polyethylene glycoL 3350 [Miralax 8.5 gm PO DAILY 08/06/17 11/18/20 History Powder] Albuterol Sulfate [Albuterol 2 puffs IH TIDP PRN 11/18/20 11/18/20 History Sulfate Hfa] Canagliflozin/Metformin HCl 1 tab PO DAILY 11/18/20 11/18/20 History [Invokamet 50-1,000 mg Tablet] Duloxetine HCl 60 mg PO DAILY 11/18/20 11/18/20 History Losartan/Hydrochlorothiazide 1 each PO DAILY 11/18/20 11/18/20 History [Losartan-Hctz 100-25 mg Tab] Metoprolol Succinate [Metoprolol 25 mg PO DAILY 11/18/20 11/18/20 History Succinate 25mg Tablet*] Pioglitazone HCl 15 mg PO DAILY 11/18/20 11/18/20 History Allergies Allergy/AdvReac Type Severity Reaction Status Date / Time cephalexin [CEPHALEXIN] Allergy Intermediate I-HIVES Verified 06/10/19 09:30 Sulfa (Sulfonamide Allergy Unknown Verified 06/10/19 09:30 Antibiotics) Exam Vital signs and Labs for Last 24 Hours: Temp Pulse Resp BP Pulse Ox 98.0 F 75 24 105/64 L 82 L 11/18/20 11:33 11/18/20 11:33 11/18/20 11:33 11/18/20 11:33 11/18/20 11:33 Laboratory Results - last 24 hr 11/17/20 18:20: WBC 9.1, RBC 4.80, Hgb 15.2, Hct 48.5 H, MCV 101.2 H, MCH 31.7 H, MCHC 31.3 L, RDW 14.4, Plt Count 260, MPV 9.9, Neut % (Auto) 89.6 H, Lymph % (Auto) 6.0 L, [place] % (Auto) 3.4, Eos % (Auto) 0.1, Baso
[2020-11-18 19:29] LABS: POC Glucose,Bedside 325 (70-110)
--- NOTE | 2020-11-18 20:08 | PC.NURSE ---
Pts admission info limited r/t bipap, pt alert and oriented. Did review code status with pt and she did say she would want everything possible, jagruti saving measures at this time, if necessary. This RN called and spoke with Dr. Young in RE to getting pt VTE ordered. Dr. Young ordered lovenox per apr. Pt didnt tolerate po meds well and did desat into the 50's and 60's quickly when bipap removed momentarily, had to reapply very quickly to maintain sats. VSS and sats stable at this time. Report on pt given.
[2020-11-18 20:25] LABS: POC Glucose,Bedside 347 (70-110)
[2020-11-18 21:01] LABS: ABG Base Excess -8.4 mmol/L (-2.4-2.3); ABG HCO3 17.2 mmhg (22.0-26.0); ABG Oxygen Saturation 85 % (90-100); ABG PCO2 32.1 mmhg (35.0-45.0); ABG PH 7.35 mmol/L (7.35-7.45); ABG TCO2 18.2 mmhg (23-27); Oxygen 100 %; Source R/R; Vent Rate 20
[2020-11-18 21:03] LABS: ABG PO2 49.6 mmhg (80-100)
--- NOTE | 2020-11-18 21:12 | PC.NURSE ---
PT SAT 83-84% ON BIPAP AT THIS TIME. PT IS MAXED. BREATHING 50/MIN. CONTACTED MD VENTURA TO UPDATE. ORDER FOR X1 HALDOL RECEIVED. ALSO GETTING ABG. WILL CALL RESULTS TO . AT THIS TIME, PT CODE STATUS WENT OVER, THIS RN, Jenny RICH AND Sp ROSA IN ROOM. PT WANTS TO BE INTUBATED IF NEEDED BUT WANTS NO OTHER MEASURED TAKEN. SIGNED AND ON THE CHART.
--- NOTE | 2020-11-18 23:11 | XR_ITS ---
PROCEDURE INFORMATION: Exam: XR Chest Exam date and time: 11/18/2020 11:11 PM Age: 55 years old Clinical indication: Device placement; Ett placement (vent status); Additional info: PT intubated. Check ett placement TECHNIQUE: Imaging protocol: XR of the chest. Views: 1 view. COMPARISON: CT CHEST WO CON 11/18/2020 10:20 AM FINDINGS: There is an endotracheal tube with its tip 3.8 cm above the enid. Lungs: There are extensive infiltrates identified throughout both lung little, left greater than right. These correspond to prominent interstitial infiltrates seen on prior CT examination of 10:20 a.m. Pleural spaces: Unremarkable. No pleural effusion. No pneumothorax. Heart/Mediastinum: Unremarkable. No cardiomegaly. Bones/joints: Unremarkable. IMPRESSION: An endotracheal tube has been placed with its tip 3.8 cm above the enid. Extensive interstitial infiltrates are again noted within both lung little.
--- NOTE | 2020-11-18 23:25 | HMH.ACPN2 ---
Internal Medicine - PN: Subj *Date: 11/18/20 *Time: 23:25 Interval history: The patient's respiratory status continued to deteriorate through the day. She was breathing at a rate of greater than 30 on the BiPAP and was uncomfortable. Blood gas was obtained Laboratory Tests 11/18/20 20:59 O2 % 100 ABG pH 7.35 ABG pCO2 32.1 L ABG pO2 49.6 L ABG HCO3 17.2 L ABG Total CO2 18.2 L Vent Rate 20 The decision was made to intubate patient. Prior to intubation heart rate was 111 blood pressure was 165/95 and we were having difficulty maintaining saturations as high as 80. Breath sounds were decreased on both sides. She was taken to the intensive care unit. Dr. Davis was consulted for intubation. The patient received 5 mg of Valium 10 mg of Accommodate and [address] Davis successfully intubated the patient and the patient was placed on the ventilator. Initial settings were an FiO2 of 100%, tidal volume of 450 cc, PEEP of 12, rate of 24. Chest x-ray post intubation showed good position of the tube but nearly total white-out of the left chest and extensive infiltrates on the right as well. Heart appeared enlarged. Official reading is pending. Tidal volume is increased to 475. Exam Vital signs and Labs for Last 24 Hours: Temp Pulse Resp BP Pulse Ox 98.2 F 100 H 42 H 148/69 H 85 L 11/18/20 20:00 11/18/20 20:00 11/18/20 20:00 11/18/20 20:00 11/18/20 20:00 Laboratory Results - last 24 hr 11/17/20 23:38: POC Glucose 263 H 11/18/20 00:05: Lactate 3.1 H 11/18/20 02:30: Lactate 2.3 H 11/18/20 03:27: POC Glucose 264 H 11/18/20 06:54: Specimen Source Left brachial, O2 % 100, ABG pH 7.28 L, ABG pCO2 40.3, ABG pO2 61.9 L, ABG HCO3 18.3 L, ABG Total CO2 19.5 L, ABG O2 Saturation 90, ABG Base Excess -8.5 L, Nhan Test Non applicable, Vent Rate 20, Tidal Volume bipap 11/18/20 07:37: Chlamy pneumoniae PCR Not detected, Adenovirus (PCR) Not detected, B. pertussis DNA (PCR) Not detected, Coronavirus OC43 (PCR) Not detected, Coronavirus HKU1 (PCR) Not detected, Coronavirus 229E (PCR) Not detected, SARS-CoV-2 (PCR) Detected A, Coronavirus NL63 (PCR) Not detected, Human Metapneumovir PCR Not detected, Influenza A (H1) PCR Not detected, Influ A (H1N1/09) PCR Not detected, Influenza A (H3) PCR Not detected, Influenza Type A (PCR) Not detected, Influenza Type B (PCR) Not detected, M. pneumoniae (PCR) Not detected, Parainfluenza 1 (PCR) Not detected, Parainfluenza 2 (PCR) Not detected, Parainfluenza 3 (PCR) Not detected, Parainfluenza 4 (PCR) Not detected, RSV (PCR) Not detected, Entero/Rhino (PCR) Not detected 11/18/20 07:37: SARS-CoV-2 IgG Ab (Rapid) Positive A, SARS-CoV-2 IgM Ab (Rapid) Negative 11/18/20 07:37: WBC 11.8 H D, RBC 4.91, Hgb 15.5, Hct 50.0 H, MCV 101.9 H, MCH 31.6 H, MCHC 31.0 L, RDW 14.3, Plt Count 259, MPV 9.5, Neut % (Auto) 93.2 H, Lymph % (Auto) 2.5 L, [place] % (Auto) 3.6, Eos % (Auto) 0.2, Baso % (Auto) 0.5, Neut # (Auto) 11.0 H, Lymph # (Auto) 0.3 L, [place] # (Auto) 0.4, Eos # (Auto) 0.0, Baso # (Auto) 0.1, Total Counted 100, Neutrophils % (Manual) 94 H, Lymphocytes % (Manual) 4 L, Monocytes % (Manual) 1 L, Basophils % (Manual) 1.0, Platelet Estimate Normal, Anisocytosis 1+, Macrocytosis 1+ 11/18/20 07:37: Sodium 134 L, Potassium 4.6, Chloride 98, Carbon Dioxide 22, Anion Gap 18.6 H, BUN 66 H, Creatinine 3.00 H, Estimated Creat Clear 36, Estimated GFR 16 L*, Est GFR ( Amer) 19 L*, Glucose 322 H, Calcium 7.7 L, Total Bilirubin 0.6, AST 92 H, ALT 32, Alkaline Phosphatase 122, Total Protein 7.0, Albumin 3.3 L, Globulin 3.7 H, Albumin/Globulin Ratio 0.9 L 11/18/20 07:37: Hemoglobin A1c 7.0 H 11/18/20 14:50: POC Glucose 325 H* 11/18/20 20:12: POC Glucose 347 H* 11/18/20 20:59: Specimen Source R/r, O2 % 100, ABG pH 7.35, ABG pCO2 32.1 L, ABG pO2 49.6 L, ABG HCO3 17.2 L, ABG Total CO2 18.2 L, ABG O2 Saturation 85 L*, ABG Base Excess -8.4 L, Vent Rate 20 I & O for Last 24 hours: Intake & Output
--- NOTE | 2020-11-18 23:55 | PC.NURSE ---
2305: Dr. Davis & Dr. Young at bedside discussed with patient code status per patient request only intubation & ventilation. Staff present - Jes Toledo, RN, Jimena Wu, RN, Liliana Schneider, RN, Rody Rich, RT, Dae Esquivel, RT Vitals: BP 130/76 HR 114 O2 58% RR 26 2307: Versed 5mg IVP followed by 2 - 10mL NS IVP 2310: Succinylcholine 100mg IVP by ED Dr. Davis followed by 1 - 10mL NS IVP Etomidate 10mg IVP by ED Dr. Davis followed by 1 - 10mL NS IVP 2312: ET 7 02/25 placed 23 at Lip 2313: Vitals BP 186/76 HR 107 O2 68% RR 42 2316: Chest xray confirm placement of ET tube 2320: Start Propofal 60mcg/kg/min (patient weight 124.6kg) 2323: Vitals BP 136/113 HR 99 O2 86% RR 27 2353: Decrease Propafol to 30mcg/kg/min 0000: Vitals BP 118/51 HR 79 O2 82% RR 24 Ventilator Settings: Tidal Volume 475 - Peep of 12 - Fi02 100% - RR 24 Bilateral Manual BP Left Arm 110/68 - Right Arm 100/50
[2020-11-19] VITALS (37 sets, daily range): BP systolic 89–118; BP diastolic 41–68; PULSE 79–100; RESP 18–31; TEMP 36.6–37.3; O2SAT 78–98; BMI 48.5; BMI 48.4
[2020-11-19 00:18] LABS: Microscopic, Urine URINE MICROSCOPIC (MICROSCOPIC)
[2020-11-19 00:20] LABS: Appearance,Urine SL CLOUDY (Clear); Bilirubin,Urine Negative (Negative); Blood, Urine 3+ (Negative); Color,Urine YELLOW (Yellow); Glucose,Urine (UA) 3+ (Negative); Ketones,Urine Negative (Negative); Leukocyte Esterase,Urine Negative (Negative); Nitrate,Urine Negative (Negative); PH,Urine 5.5 (5.0-8.5); Protein,Urine 1+ (Negative); Urobilinogen,Urine 0.2 EU/dl (0.2)
[2020-11-19 00:25] LABS: Amorphous Sediment,Urine 2+ /lpf; WBC,Urine Occasional #/hpf (0-3)
--- NOTE | 2020-11-19 00:25 | PC.NURSE ---
RESPIRATORY CARE: SPUTUM SAMPLE OBTAINED FOR POST INTUBATION. SAMPLE TAKEN TO LAB.
--- NOTE | 2020-11-19 00:35 | PC.NURSE ---
2300 report received from Liliana Schneider RN. I will be assuming care of patient under the direct supervisor [employer] of Gee Pérez RN & Gee Wu RN.
[2020-11-19 00:38] LABS: ABG Base Excess -7.6 mmol/L (-2.4-2.3); ABG HCO3 18.4 mmhg (22.0-26.0); ABG Oxygen Saturation 78 % (90-100); ABG PH 7.33 mmol/L (7.35-7.45); ABG TCO2 19.5 mmhg (23-27)
[2020-11-19 00:52] LABS: Oxygen 100 %; PEEP 12; Tidal Volume 475; Vent Rate 24
[2020-11-19 00:53] LABS: ABG PO2 44.9 mmhg (80-100); Allen's Test Patient Unable; Source Right Radial
--- NOTE | 2020-11-19 04:51 | PC.NURSE ---
11/19/20 0445 called [facility] due to GCS 3 per Clarissa Trivedi with [facility] stated they would not follow but to call back with discussion of termination of care, time of , or if pallative treatment is discussed.
--- NOTE | 2020-11-19 04:53 | INFXCTL.NOTE ---
2300:Myself and Gee Pérez RN will be overseeing Lilo Toledo RN, who will be assuming care of patient under our direct supervision.
--- NOTE | 2020-11-19 05:57 | HMH.RR ---
Acute Rapid Response Note - Subjective Date Responded: 11/18/20 Time Responded: 23:10 Provider Note: asked to assist with intubation as pt has resp failure - Objective Findings: Vital Signs - Last 4 Hours Temperature 98.6 F 11/19/20 05:00 Temperature Source Axillary 11/19/20 05:00 Pulse Rate 92 H 11/19/20 05:00 Respiratory Rate 24 11/19/20 05:00 Blood Pressure 96/50 L 11/19/20 05:00 Blood Pressure Mean 65 11/19/20 05:00 Blood Pressure Source Automatic Cuff 11/19/20 05:00 Blood Pressure Position Supine 11/19/20 00:30 02 Sat by Pulse Oximetry 82 L 11/19/20 05:00 Oxygen Delivery Method 11/19/20 05:00 Oxygen Flow Rate (LPM) 100 11/19/20 01:39 Lab Results for Past 12 Hours 11/19/20 00:34: Specimen Source Right radial, O2 % 100, ABG pH 7.33 L, ABG pCO2 36.0, ABG pO2 44.9 L, ABG HCO3 18.4 L, ABG Total CO2 19.5 L, ABG O2 Saturation 78 L*, ABG Base Excess -7.6 L, Nhan Test Patient unable, Vent Rate 24, Tidal Volume 475, PEEP 12 11/19/20 00:10: Urine Color Yellow, Urine Appearance Sl cloudy, Urine pH 5.5, Ur Specific [place] 1.020, Urine Protein 1+, Urine Glucose (UA) 3+, Urine Ketones Negative, Urine Blood 3+, Urine Nitrate Negative, Urine Bilirubin Negative, Urine Urobilinogen 0.2, Ur Leukocyte Esterase Negative, Urine RBC 10-20, Urine WBC Occasional, Amorphous Sediment 2+, Coarse Granular Casts 3-5 11/18/20 20:59: Specimen Source R/r, O2 % 100, ABG pH 7.35, ABG pCO2 32.1 L, ABG pO2 49.6 L, ABG HCO3 17.2 L, ABG Total CO2 18.2 L, ABG O2 Saturation 85 L*, ABG Base Excess -8.4 L, Vent Rate 20 11/18/20 20:12: POC Glucose 347 H* 11/18/20 14:50: POC Glucose 325 H* My Orders Category Date Time Status Etomidate [Amidate 40mg/20mL vial] Med 11/19/20 00:45 Discontinued 10 mg IV ONCE ONE Midazolam HCl/Pf [Midazolam 5mg/mL 1mL vial] Med 11/19/20 02:00 Discontinued 5 mg IV ONCE ONE Succinylcholine Chloride [Anectine 20mg/mL 10mL MDV] Med 11/19/20 00:45 Discontinued 100 mg IV ONCE ONE Rapid Response Exam - General General appearance: alert, in distress - Head Head exam: normocephalic - Eye Eye exam: Present: PERRL, EOMI - ENT ENT exam: Present: mucous membranes dry - Neck Neck exam: Present: trachea midline - Respiratory Respiratory exam: Present: respiratory distress - Cardiovascular Cardiovascular exam: Present: tachycardia - Abdominal Exam Abdominal exam: Absent: soft - Extremities Exam Extremities exam: Present: pedal edema - Neurological Exam Neurological exam: Present: alert - Skin Skin exam: Absent: rash RR Procedures/Assess/Plan - Bedside Intubation Time Out Performed: Yes Sedative: Etomidate Mg given: 10 Paralytic: Succinylcholine Mg given: 100 Laryngoscope: Narvaez Tube size: 7.5 Tube uncuffed: No Secured Depth: 23 Secured location: teeth Placement confirmation: visualized tube passing through cords, equal breath sounds bilaterally, confirmation by capnometry Patient tolerated procedure intubation: no complications Intubation Complications: none (1) Respiratory failure Status: Acute Qualifiers: Chronicity: acute Respiratory failure complication: hypoxia Qualified Code(s): J96.01 - Acute respiratory failure with hypoxia - Assessment and plan all Dx Assessment and Plan for all problems:: pt with covid-19 with resp failure requiring intubation
--- NOTE | 2020-11-19 06:00 | XR_ITS ---
PROCEDURE INFORMATION: Exam: XR Chest Exam date and time: 11/19/2020 6:00 AM Age: 55 years old Clinical indication: Device placement; Ett placement (vent status); Additional info: PT intubated. Covid TECHNIQUE: Imaging protocol: XR of the chest. Views: 1 view. COMPARISON: CR XR CHEST PORTABLE 11/18/2020 11:18 PM FINDINGS: Tubes, catheters and devices: Endotracheal tube terminates 3 cm above the enid. Overlying EKG wires Lungs: Patchy bilateral opacities may represent multifocal pneumonia including COVID-19.. Pleural spaces: Unremarkable. No pleural effusion. No pneumothorax. Heart/Mediastinum: Unremarkable. No cardiomegaly. Bones/joints: Unremarkable. IMPRESSION: Patchy bilateral opacities may represent multifocal pneumonia including COVID-19..
[2020-11-19 06:47] LABS: Basophils # 0.1 K/mm3 (0-0.2); Basophils % 0.7 % (0.1-2.0); Hematocrit 48.6 % (37.0-47.0); Hemoglobin 14.7 g/dL (12.2-16.2); Lymphocytes # 0.7 K/mm3 (0.7-4.5); Mean Corpuscular HGB Conc 30.2 g/dL (31.8-35.4); Mean Corpuscular Hemoglobin 30.9 pg (27.0-31.2); Mean Corpuscular Volume 102.3 fl (81-99); Mean Platelet Volume 9.2 fl (7.4-10.4); Monocytes # 0.6 K/mm3 (0.1-1.0); Monocytes % 3.8 % (1.7-9.3); Neutrophils # 15.4 K/mm3 (1.8-7.8); Neutrophils % 91.6 % (37.0-80.0); Platelet Count 337 K/mm3 (142-424); Red Blood Count 4.75 M/mm3 (4.20-5.40); Red Cell Distribution Width 14.4 % (11.5-17.5); White Blood Count 16.8 K/mm3 (4.8-10.8)
[2020-11-19 06:49] LABS: MANUAL DIFFERENTIAL MANUAL DIFFERENTIAL (MANUAL DIFF)
[2020-11-19 06:58] LABS: Hypochromasia 1+; Lymphocytes % 6 % (10-50); Macrocytosis 2+; Monocytes % 2 % (2-9); Neutrophils % 80 % (42-76); Platelet Estimate Normal; Total Cells Counted 100
[2020-11-19 07:01] LABS: Anion Gap 21.6 mEq/L (5-15); Blood Urea Nitrogen 73 mg/dl (7-17); Calcium 7.7 mg/dl (8.4-10.2); Carbon Dioxide 20 mmol/L (22.0-30.0); Chloride 102 mmol/L (98-107); Creatinine Clearance Estimated 20 mL/min (50-200); Estimated Glomerular Filt Rate 21 ml/min (>60); GFR (African American) 25 ML/MIN (>60); Glucose 385 mg/dl (74-100); Potassium 4.6 mmoL/L (3.5-5.1); Sodium 139 mmol/L (136-145)
[2020-11-19 08:59] LABS: ABG Base Excess -8.9 mmol/L (-2.4-2.3); ABG HCO3 18.6 mmhg (22.0-26.0); ABG Oxygen Saturation 77 % (90-100); ABG PCO2 45.1 mmhg (35.0-45.0); ABG PH 7.23 mmol/L (7.35-7.45)
[2020-11-19 09:12] LABS: ABG PO2 45.5 mmhg (80-100); Allen's Test Patient Unable; Oxygen 100 %; PEEP 14; Source Right Radial; Tidal Volume 475; Vent Rate 24
--- NOTE | 2020-11-19 09:35 | DIET.NUTRFU ---
Addendum entered by Shanice Maria 11/22/20 14:58: TF initiation ordered per verbal order from Dr. Young, communicated with nursing. Na high 146, continued worsening renal function, BG high >300. Slow and low advancement tube feeds important. Will monitor closely to alter regimen as indicated. Weight stable, still no BM. Addendum entered by Shanice Maria 11/20/20 13:40: TFs not yet initiated, day 3 NPO. Receiving IVF and propofol. Worsening renal labs, BG high- avg. 367, K elevated at 5.3. Weight stable, pt has not had a BM. Recommend initiating TF and advancing slowly as tolerated, no changes to regimen as previously stated. Continuing to monitor. Original Note: Pt intubated, nutrition consult received for enteral nutrition orders. Pt with QUINTON RIDLEY. Electrolytes wnl, MAP>60. Currently receiving propofol and IVF. Upon MD order, recommend initiating continuous TF regimen of Pulmocare at 20ml/h and advancing as tolerated by 10ml/h q 8h to goal rate of 42ml/h. Recommend minimal water flushes of 30-60ml q 4h. If IVF dc'd, water flushes of 153ml q 4h meet additional fluid needs not provided by formula. This regimen provides 1500kcal, 63g protein, 93g fat, 106g cho, and 785ml free water(1700ml total fluids with flushes). Will monitor pt to alter regimen as indicated.
--- NOTE | 2020-11-19 09:57 | PC.NURSE ---
Patient's PEEP turned to 16 and rate turned to [address] Young.
--- NOTE | 2020-11-19 11:10 | PC.NURSE ---
Patient's PEEP turned to 16 and Rate turned to [address] Young.
--- NOTE | 2020-11-19 11:12 | PC.NURSE ---
Patient's PEEP turned to [address] Castellano.
[2020-11-19 11:55] LABS: POC Glucose,Bedside 358 (70-110)
--- NOTE | 2020-11-19 13:39 | HMH.ACPN2 ---
Internal Medicine - PN: Subj *Date: 11/19/20 *Time: 13:39 Interval history: The patient was maintained on the ventilator through the night, but with Sats only 79-80 range. Settings were increased this morning to RR=26 and PEEP of 16. Dr. Castellano did consult by phone later in the morning and recommended increasing PEEP to 20. This has resulted in improved sats in 88-90 range. Urine output has been poor, but IV rate is only 75ml/hr. will increase this to 125ml/hr. Exam Vital signs and Labs for Last 24 Hours: Temp Pulse Resp BP Pulse Ox 97.8 F 84 26 H 101/56 L 90 L 11/19/20 13:00 11/19/20 13:00 11/19/20 13:00 11/19/20 13:00 11/19/20 13:00 Laboratory Results - last 24 hr 11/18/20 14:50: POC Glucose 325 H* 11/18/20 20:12: POC Glucose 347 H* 11/18/20 20:59: Specimen Source R/r, O2 % 100, ABG pH 7.35, ABG pCO2 32.1 L, ABG pO2 49.6 L, ABG HCO3 17.2 L, ABG Total CO2 18.2 L, ABG O2 Saturation 85 L*, ABG Base Excess -8.4 L, Vent Rate 20 11/19/20 00:10: Urine Color Yellow, Urine Appearance Sl cloudy, Urine pH 5.5, Ur Specific T[place]ord 1.020, Urine Protein 1+, Urine Glucose (UA) 3+, Urine Ketones Negative, Urine Blood 3+, Urine Nitrate Negative, Urine Bilirubin Negative, Urine Urobilinogen 0.2, Ur Leukocyte Esterase Negative, Urine RBC 10-20, Urine WBC Occasional, Amorphous Sediment 2+, Coarse Granular Casts 3-5 11/19/20 00:34: Specimen Source Right radial, O2 % 100, ABG pH 7.33 L, ABG pCO2 36.0, ABG pO2 44.9 L, ABG HCO3 18.4 L, ABG Total CO2 19.5 L, ABG O2 Saturation 78 L*, ABG Base Excess -7.6 L, Nhan Test Patient unable, Vent Rate 24, Tidal Volume 475, PEEP 12 11/19/20 06:00: Specimen Source Right radial, O2 % 100, ABG pH 7.23 L*, ABG pCO2 45.1 H, ABG pO2 45.5 L, ABG HCO3 18.6 L, ABG Total CO2 20.0 L, ABG O2 Saturation 77 L*, ABG Base Excess -8.9 L, Nhan Test Patient unable, Vent Rate 24, Tidal Volume 475, PEEP 14 11/19/20 06:20: WBC 16.8 H D, RBC 4.75, Hgb 14.7, Hct 48.6 H, MCV 102.3 H, MCH 30.9, MCHC 30.2 L, RDW 14.4, Plt Count 337 D, MPV 9.2, Neut % (Auto) 91.6 H, Lymph % (Auto) 4.0 L, Mcleod % (Auto) 3.8, Eos % (Auto) 0.0 L, Baso % (Auto) 0.7, Neut # (Auto) 15.4 H, Lymph # (Auto) 0.7, Mcleod # (Auto) 0.6, Eos # (Auto) 0.0, Baso # (Auto) 0.1, Total Counted 100, Neutrophils % (Manual) 80 H, Band Neutrophils % 12.0 H, Lymphocytes % (Manual) 6 L, Monocytes % (Manual) 2, Platelet Estimate Normal, Hypochromasia 1+, Macrocytosis 2+ 11/19/20 06:20: Sodium 139, Potassium 4.6, Chloride 102, Carbon Dioxide 20 L, Anion Gap 21.6 H, BUN 73 H, Creatinine 2.40 H, Estimated Creat Clear 20, Estimated GFR 21 L, Est GFR ( Amer) 25 L D, Glucose 385 H, Calcium 7.7 L 11/19/20 11:45: POC Glucose 358 H* I & O for Last 24 hours: Intake & Output 11/17/20 11/18/20 11/19/20 11/20/20 11:59 11:59 11:59 11:59 Intake Total 1474 / 1583 225 / 225 Output Total 1230 / 1240 Balance 244 / 343 205 / 205 Weight 271 lb 13.279 oz 273 lb 5.971 oz Microbiology Reports for the Last 24 Hours: Microbiology 11/19/20 00:25 Sputum - Expectorated Sputum Gram Stain - Final - Constitutional Comments: Sedated, on ventilator - *Routine HEENT Exam Head: Present: normocephalic ENT: Present: mucous membranes moist (ET tube in place) - *Routine Neck Exam Absent: swelling, tracheal deviation (no crepitus) - Routine Chest/Breast/Axilla Exam Comments: normal configuration - *Routine Respiratory Exam Present: decreased breath sounds (especially at bases) - *Routine Cardiovascular Exam Present: RRR - *Routine Abdominal Exam Present: soft, obese. Absent: organomegaly - *Routine Exam Comments: Duval catheter in place - *Routine Extremities Exam Absent: cyanosis, edema - *Routine Neurological Exam Absent: alert (sedated) Assessment and Plan (1) Respiratory failure Status: Acute Qualifiers: Chronicity: acute Respiratory failure complication: hypoxia Qualified Code(s): J96.01 - Acute respiratory failu
[2020-11-19 15:49] LABS: POC Glucose,Bedside 379 (70-110)
--- NOTE | 2020-11-19 16:40 | PC.NURSE ---
Patient remains intubated with 7.5 ETT, 23 @lip, current vent settings Fio2 100%, RR 26, Peep 20, TV 475, AC, pupils equal, sedated with RASS -3, CPOT 0, HR reg, lung sounds diminished t/o, abd is firm and round with hypoactive bowel sounds in all quads, several attempts have been made to place NG/OG without success, FC patent and draining clear yellow urine at bedside, urine output has been minimal 5-10cc/hr, peripheral pulses 2+, trace nonpitting edema noted in BLE, no skin issues noted, remains on levophed, titrated for systolic to remain above 90, will continue to monitor for changes.
--- NOTE | 2020-11-19 21:44 | PC.NURSE ---
Addendum entered by Isabelle Pepper RN 11/19/20 23:16: 1 attempt. Original Note: #22g IV started to left upper arm at this time.
--- NOTE | 2020-11-19 23:13 | PC.NURSE ---
2300 - Attempted to turn patient at this time. Upon turning patient to the left side, she began cyanotic and patient oxygen saturations decreased to 76% on 100% FiO2 vent settings. 2305 - RT paged to the bedside. 2314 - Dr Young notified, and informed that patient current oxygen saturations were still at 81%. He ordered to have RT change the rate of the vent from 26-28. He stated if patient tolerated that and her oxygen saturations increased back to her baseline, her rate could be decreased back to 26 at a later time. 2316 - patient is currently at 82% on the oxygen saturation monitor with good pleth. Pt is less cyanotic. Will continue to monitor closely. Primary RN aware.
--- NOTE | 2020-11-19 23:38 | PC.NURSE ---
Pt oxygen saturations still 82-83%. Pt head of bed elevated more, and whole bed tilted up. Will continue to monitor closely.
[2020-11-20] VITALS (30 sets, daily range): BP systolic 94–153; BP diastolic 47–77; PULSE 57–91; RESP 0–28; TEMP 36.7–37.8; O2SAT 26–99; BMI 48.4
--- NOTE | 2020-11-20 00:18 | PC.NURSE ---
Pt rotated back to the right side, and appears to be tolerating it better. Pt oxygen saturations now 87%. Pt color is better. Will continue to monitor.
--- NOTE | 2020-11-20 03:17 | PC.NURSE ---
Pt does not tolerate much stimulation. Attempting to reposition patient as much as possible without causing her oxygen saturations to decline. Pt heart rate elevates, and oxygen saturation drops with any movement. Will continue to closely monitor.
--- NOTE | 2020-11-20 05:56 | PC.NURSE ---
Assisted radiology with a chest xray at this time. Pt still not tolerating much stimulation. Pt had desaturations to 82% during portable chest xray. Pt seems to only tolerate respiratory effort when being turned toward her right side. Will continue to closely monitor.
[2020-11-20 06:04] LABS: POC Glucose,Bedside 352 (70-110)
[2020-11-20 06:07] LABS: Basophils # 0.1 K/mm3 (0-0.2); Basophils % 0.4 % (0.1-2.0); Hematocrit 45.8 % (37.0-47.0); Hemoglobin 13.7 g/dL (12.2-16.2); Lymphocytes # 0.7 K/mm3 (0.7-4.5); Lymphocytes % 4.1 % (10-50); Mean Corpuscular HGB Conc 29.9 g/dL (31.8-35.4); Mean Corpuscular Hemoglobin 31.1 pg (27.0-31.2); Mean Corpuscular Volume 104.2 fl (81-99); Mean Platelet Volume 8.7 fl (7.4-10.4); Monocytes # 0.8 K/mm3 (0.1-1.0); Monocytes % 4.6 % (1.7-9.3); Neutrophils # 15.5 K/mm3 (1.8-7.8); Neutrophils % 90.8 % (37.0-80.0); Platelet Count 353 K/mm3 (142-424); Red Blood Count 4.39 M/mm3 (4.20-5.40); Red Cell Distribution Width 14.7 % (11.5-17.5); White Blood Count 17.1 K/mm3 (4.8-10.8)
[2020-11-20 06:16] LABS: MANUAL DIFFERENTIAL MANUAL DIFFERENTIAL (MANUAL DIFF)
[2020-11-20 06:23] LABS: Anion Gap 18.3 mEq/L (5-15); Calcium 7.6 mg/dl (8.4-10.2); Carbon Dioxide 19 mmol/L (22.0-30.0); Chloride 107 mmol/L (98-107); Creatinine Clearance Estimated 14 mL/min (50-200); Estimated Glomerular Filt Rate 14 ml/min (>60); GFR (African American) 17 ML/MIN (>60); Glucose 361 mg/dl (74-100); Potassium 5.3 mmoL/L (3.5-5.1); Sodium 139 mmol/L (136-145)
[2020-11-20 06:51] LABS: Hypochromasia 2+; Lymphocytes % 6 % (10-50); Macrocytosis 2+; Monocytes % 1 % (2-9); Neutrophils % 87 % (42-76); Platelet Estimate Normal; Total Cells Counted 100
--- NOTE | 2020-11-20 07:00 | XR_ITS ---
PROCEDURE: XR CHEST PORTABLE CLINICAL HISTORY: ETT placement COMPARISON: CR XR CHEST PORTABLE from 11/17/[address] CHEST WO CON from 11/18/2020 CR XR CHEST PORTABLE from 11/18/2020 CR XR CHEST PORTABLE from 11/19/2020 FINDINGS: 5:52 a.m.. Endotracheal tube tip is in good position at the T3-T4 level well above the enid. Consolidation of the left lung once again noted. There is moderate patient rotation with prominence of the mediastinum. No evidence of pneumothorax. Mild right-sided airspace disease in the mid lower lung zone. No acute bony abnormalities. IMPRESSION: Endotracheal tube tip in good position. No change in the bilateral airspace disease left more extensive than right Dictated by: Nhan Sadler MD 11/20/2020 09:49 Nhan Sadler MD in OV 11/20/2020 09:49
[2020-11-20 07:01] LABS: ABG Base Excess -10.6 mmol/L (-2.4-2.3); ABG HCO3 17.5 mmhg (22.0-26.0); ABG Oxygen Saturation 90 % (90-100); ABG PCO2 45.9 mmhg (35.0-45.0); ABG PO2 60.8 mmhg (80-100); ABG TCO2 18.9 mmhg (23-27)
[2020-11-20 07:13] LABS: Lactate Arterial 2.6 mmol/L (0.4-2.0)
[2020-11-20 07:15] LABS: Oxygen 100 %; PEEP 20; Tidal Volume 475; Vent Rate 26
[2020-11-20 07:16] LABS: Source Right Radial
[2020-11-20 07:59] LABS: Blood Urea Nitrogen 89 mg/dl (7-17)
--- NOTE | 2020-11-20 08:50 | HMH.ACPN2 ---
Internal Medicine - PN: Subj *Date: 11/20/20 *Time: 09:03 Interval history: Patient remains sedated with fentanyl propofol. She is also on a Levophed drip. She remains unresponsive. O2 sats are unstable with any kind of movement. She remains on a vent with settings tidal volume 475 respiratory rate of 26 FiO2 of 100% 20 of PEEP. ABGs this morning revealed pH 7.2 PCO2 45.9 PO2 of 60.8 and a bicarb of 17.5. Blood chemistries reveal sodium of 139 potassium 5.3 BUN is 89 and creatinine has increased to 3.4. Blood sugars remain elevated and are covered by sliding scale and Lantus. White blood cell count has increased to 17,100 with a hemoglobin of 13.7 hematocrit of 45.8. Duval catheter to bedside drainage. Exam Vital signs and Labs for Last 24 Hours: Temp Pulse Resp BP Pulse Ox 98.9 F 81 26 H 103/60 L 26 L 11/20/20 06:50 11/20/20 06:50 11/20/20 06:50 11/20/20 06:50 11/20/20 06:50 Laboratory Results - last 24 hr 11/19/20 06:00: Specimen Source Right radial, O2 % 100, ABG pH 7.23 L*, ABG pCO2 45.1 H, ABG pO2 45.5 L, ABG HCO3 18.6 L, ABG Total CO2 20.0 L, ABG O2 Saturation 77 L*, ABG Base Excess -8.9 L, Nhan Test Patient unable, Vent Rate 24, Tidal Volume 475, PEEP 14 11/19/20 11:45: POC Glucose 358 H* 11/19/20 15:39: POC Glucose 379 H* 11/20/20 05:35: WBC 17.1 H, RBC 4.39, Hgb 13.7, Hct 45.8, MCV 104.2 H, MCH 31.1, MCHC 29.9 L, RDW 14.7, Plt Count 353, MPV 8.7, Neut % (Auto) 90.8 H, Lymph % (Auto) 4.1 L, Tift % (Auto) 4.6, Eos % (Auto) 0.0 L, Baso % (Auto) 0.4, Neut # (Auto) 15.5 H, Lymph # (Auto) 0.7, Tift # (Auto) 0.8, Eos # (Auto) 0.0, Baso # (Auto) 0.1, Total Counted 100, Neutrophils % (Manual) 87 H, Band Neutrophils % 6.0, Lymphocytes % (Manual) 6 L, Monocytes % (Manual) 1 L, Platelet Estimate Normal, Hypochromasia 2+, Macrocytosis 2+ 11/20/20 05:35: Sodium 139, Potassium 5.3 H, Chloride 107, Carbon Dioxide 19 L, Anion Gap 18.3 H, BUN 89 H, Creatinine 3.40 H D, Estimated Creat Clear 14, Estimated GFR 14 L*, Est GFR ( Amer) 17 L* D, Glucose 361 H, Calcium 7.6 L 11/20/20 05:57: POC Glucose 352 H* 11/20/20 06:47: ABG Lactate 2.6 H 11/20/20 07:00: Specimen Source Right radial, O2 % 100, ABG pH 7.20 L*, ABG pCO2 45.9 H, ABG pO2 60.8 L, ABG HCO3 17.5 L, ABG Total CO2 18.9 L, ABG O2 Saturation 90, ABG Base Excess -10.6 L, Nhan Test N/a, Vent Rate 26, Tidal Volume 475, PEEP 20 I & O for Last 24 hours: Intake & Output 11/17/20 11/18/20 11/19/20 11/20/20 11:59 11:59 11:59 11:59 Intake Total 1474 / 1583 2963.985 / 2963.985 Output Total 1230 / 1240 300 / 300 Balance 244 / 343 2663.985 / 2663.985 Weight 271 lb 13.279 oz 273 lb 5.971 oz 273 lb Microbiology Reports for the Last 24 Hours: Microbiology 11/17/20 19:56 Blood Blood Culture - Preliminary NO GROWTH AFTER 48 HOURS 11/17/20 19:56 Blood Blood Culture - Preliminary NO GROWTH AFTER 48 HOURS - Constitutional obese Comments: Sedated on vent - *Routine Respiratory Exam Present: patient mechanically ventilated, rhonchi (Scattered bilaterally) - *Routine Cardiovascular Exam Present: RRR (Monitor shows sinus rhythm) - *Routine Abdominal Exam Present: soft, obese - *Routine Extremities Exam Absent: edema - *Routine Neurological Exam Absent: alert Assessment and Plan (1) Respiratory failure Status: Acute Qualifiers: Chronicity: acute Respiratory failure complication: hypoxia Qualified Code(s): J96.01 - Acute respiratory failure with hypoxia Category: Medical Code(s): J96.90 - Respiratory failure, unspecified, unspecified whether with hypoxia or hypercapnia (2) Bilateral pneumonia Status: Acute Category: Medical Code(s): J18.9 - Pneumonia, unspecified organism (3) COVID-19 Status: Acute Category: Medical Code(s): U07.1 - COVID-19 (4) Diabetes mellitus type 2 in obese Status: Chronic Category: Medical Code(s): E11.69 - Type 2
--- NOTE | 2020-11-20 11:55 | PC.NURSE ---
noted that pt has nothing on her mar for elevated temperature. called Dr Young office at 1155 and requested medication.
--- NOTE | 2020-11-20 11:57 | PC.NURSE ---
ng tube placed at this time. anchored at 55cm. verified by auscultation and aspiration of gastric contents. veriried again by William Galindo RN. meds administered at this time
[2020-11-20 13:13] LABS: POC Glucose,Bedside 370 (70-110)
--- NOTE | 2020-11-20 14:19 | PC.NURSE ---
RESP CARE NOTE: Endotracheal tube withdrawn to 25 at the lip per DR Castellano.
--- NOTE | 2020-11-20 14:39 | HMH.PULMCON ---
*Admission Date: 11/18/20 *Reason for consult:: Acute on chronic hypoxic respiratory failure *History of present illness: Ms. Partida is a 55-year-old female who completed her vaccination with same day, diagnosed with COVID-19 pneumonia 11/12 presented to the hospital progressive worsening respiratory distress and found to be COVID-19 positive eventually needing intubation mechanical ventilatory support to maintain her oxygen saturations are low and pulmonary was called for further management . Her other significant comorbidities include but not limited to morbid obesity and poorly controlled diabetes. [facility] History Medical History: Reports:: Anxiety, Depression, Diabetes Mellitus Type 2, Gastroesophageal Reflux Disease(GERD), Hyperlipidemia, Hypertension Denies:: Cancer, Diabetes Mellitus Type 1, Internal Pacemaker, MRSA, Seizures *Have you ever received a pneumonia vaccine?: No *Have you received a flu vaccine this season?: No Other Medical History: Denies: Blood Transfusion Reaction Other Surgeries: Yes: Cholecystectomy (March 23, 2014), Colonoscopy (March 25, 2012), Dilation and Curettage, Other (Kyphoplasty November 05, 2017). No: Pacemaker Amputation: No Fractures: No - *Social History Last grade of school completed: 9th or 10th Smoking Status: Never smoker Alcohol Intake: never *Occupational Status:: other Housing: house Household Members: spouse *Travel in the last 8 weeks: None - Psychiatric History Expresses thoughts of harming self/others: None Pschychiatric History:: Reports:: Anxiety, Depression Family Hx:: Cancer, Coronary Artery Disease ROS - Review of Systems Review of systems:: unable to obtain Intubated and sedated Meds Home Medications Medication Instructions Recorded Confirmed Type Aspirin [Aspirin 81mg chewable 81 mg PO DAILY 08/06/17 11/18/20 History tab] Gabapentin [Neurontin 600mg 600 tab PO QID 08/06/17 11/18/20 History tablet] Insulin Glargine,Hum.rec.anlog 70 unit SQ DAILY 08/06/17 11/18/20 History [Toubrenda Solostar] Insulin NPH Hum/Reg Insulin Hm 20 unit SQ TID 08/06/17 11/18/20 History [Novolin 70-30 100 Unit/ml Vial] Potassium Chloride [Klor-Con 10mEq 20 meq PO DAILY 08/06/17 11/18/20 History tab] Sulindac 200 mg PO BID 08/06/17 11/18/20 History diazePAM [Valium 5mg tablets] 2.5 mg PO 0900,1200 08/06/17 11/18/20 History diazePAM [diazePAM 5mg Tablet] 5 mg PO HS 08/06/17 11/18/20 History polyethylene glycoL 3350 [Miralax 8.5 gm PO DAILY 08/06/17 11/18/20 History Powder] Albuterol Sulfate [Albuterol 2 puffs IH TIDP PRN 11/18/20 11/18/20 History Sulfate Hfa] Canagliflozin/Metformin HCl 1 tab PO DAILY 11/18/20 11/18/20 History [Invokamet 50-1,000 mg Tablet] Duloxetine HCl 60 mg PO DAILY 11/18/20 11/18/20 History Losartan/Hydrochlorothiazide 1 each PO DAILY 11/18/20 11/18/20 History [Losartan-Hctz 100-25 mg Tab] Metoprolol Succinate [Metoprolol 25 mg PO DAILY 11/18/20 11/18/20 History Succinate 25mg Tablet*] Pioglitazone HCl 15 mg PO DAILY 11/18/20 11/18/20 History Allergies Allergy/AdvReac Type Severity Reaction Status Date / Time cephalexin [CEPHALEXIN] Allergy Intermediate I-HIVES Verified 06/10/19 09:30 Sulfa (Sulfonamide Allergy Unknown Verified 06/10/19 09:30 Antibiotics) Exam - Constitutional Constitutional:: Absent: no acute distress, comfortable - HENMT Exam HENMT: Present: normocephalic - Eye Exam Eyes:: Present: normal appearance both eyes and related structures - Respiratory Exam Respiratory:: Present: respiratory distress, decreased breath sounds, crackles - Cardiovascular Exam Cardiac:: Present: S1, S2 - GI Exam GI:: Present: soft, distended, obese - Neurological Exam Neurological: Absent: alert, awake, normal cognition - Extremities Exam Extremities: Present: no cyanosis, no clubbing, edema Internal Medicine - CN: Reslt - Labs CBC & Chem 7: 11/20/20 05:35 11/20/20 05:35 Labs: Sh
--- NOTE | 2020-11-20 14:44 | CA_ITS ---
APPROVED REPORT Bilateral Lower Extremity Venous Study for DVT. Interventional Cardiologist: Sophia RCS,RVS Indications COVID-19, DM, Hypoxia, Obesity Risk Factors Obesity Vein Imaging CFV (R): compressive, spontaneous, phasic, augmentation SFJ (R): compressive, spontaneous, phasic, augmentation FEM (R): compressive, spontaneous, phasic, augmentation POP (R): compressive, spontaneous, phasic, augmentation DFV (R): compressive, spontaneous, phasic, augmentation PTV (R): compressive, spontaneous, phasic, augmentation GSV (R): compressive, spontaneous, phasic, augmentation SSV (R): compressive, spontaneous, phasic, augmentation Peroneals (R):compressive, spontaneous, phasic, augmentation GAS (R): compressive, spontaneous, phasic, augmentation CFV (L): compressive, spontaneous, phasic, augmentation SFJ (L): compressive, spontaneous, phasic, augmentation FEM (L): compressive, spontaneous, phasic, augmentation POP (L): compressive, spontaneous, phasic, augmentation DFV (L): compressive, spontaneous, phasic, augmentation PTV (L): compressive, spontaneous, phasic, augmentation GSV (L): compressive, spontaneous, phasic, augmentation SSV (L): compressive, spontaneous, phasic, augmentation Peroneals (L):compressive, spontaneous, phasic, augmentation GAS (L): compressive, spontaneous, phasic, augmentation Findings Color flow duplex demonstrates no evidence of DVT of the following bilateral lower extremity Veins:Common Femoral Vein, Femoral Vein, Popliteal Vein, Posterior Tibial Veins, Peroneal Veins. Stagnant flow observed in the left GSV with complete compressions. Negative for DVT at this time. Conclusion Negative for DVT at this time. Electronically signed by : Nhan Sadler MD 11/21/2020 15:51:19
--- NOTE | 2020-11-20 14:46 | XR_ITS ---
PROCEDURE INFORMATION: Exam: XR Abdomen Exam date and time: 11/20/2020 2:46 PM Age: 55 years old Clinical indication: Patient HX: Covid positive , abdomen distension TECHNIQUE: Imaging protocol: XR of the abdomen. Portable AP exam. Views: Frontal supine view of the abdomen. 1 View. Two images received. COMPARISON: ABDPELW CT ABD PELVIS W/ CONTRAST 05/28/2015 1:16 PM FINDINGS: Lungs: Dense consolidation noted in the left lower lobe, as reported on previous chest x-ray, which is not available on PACS for direct comparison. Gastrointestinal tract: Minimal scattered intestinal air. No dilated loops or findings of obstruction, as visualized. Vasculature: Chronic calcified phlebolith in the left lower quadrant pelvis, as seen on previous CT from 05/28/2015. Bones/joints: There are spinal degenerative changes, with multilevel disc narrrowing and spondylosis. Bilateral sacroiliitis greater on the right. Bilateral hip arthritis. Soft tissues: Right upper quadrant abdominal surgical clips, correlate for cholecystectomy. No acute findings in the soft tissues. Other findings: Overlying cardiac nurse specialist electrodes. IMPRESSION: 1. No acute abdominal findings. 2. Paucity of bowel gas in the abdomen and pelvis, no dilated loops. 3. Left lower lobe pulmonary consolidation. 4. Additional nonemergency and chronic findings as above.
[2020-11-20 16:36] LABS: D-Dimer 3.29 ug/mL (0.0-0.5)
[2020-11-20 16:37] LABS: C-Reactive Protein 132.3 mg/L (0-4)
[2020-11-20 17:08] LABS: Ferritin 652 ng/ml (11.1-264)
[2020-11-20 18:21] LABS: POC Glucose,Bedside 367 (70-110)
[2020-11-20 21:41] LABS: POC Glucose,Bedside 393 (70-110)
[2020-11-20 23:15] LABS: Lipase 14061 U/L (23-300)
[2020-11-21] VITALS (35 sets, daily range): BP systolic 90–117; BP diastolic 38–78; PULSE 50–67; RESP 22–32; TEMP 36.4–36.9; O2SAT 87–100; BMI 49.3; BMI 49.6
--- NOTE | 2020-11-21 05:27 | PC.NURSE ---
BP 87/47- levo increased to 10mcg/kg.
[2020-11-21 05:41] LABS: POC Glucose,Bedside 398 (70-110)
--- NOTE | 2020-11-21 06:00 | XR_ITS ---
PROCEDURE INFORMATION: Exam: XR Chest Exam date and time: 11/21/2020 6:00 AM Age: 55 years old Clinical indication: Device placement; Ett placement (vent status); Patient HX: Covid; Additional info: Intubation TECHNIQUE: Imaging protocol: XR of the chest. Views: 1 view. COMPARISON: CR XR CHEST PORTABLE 11/20/2020 5:52 AM FINDINGS: Tubes, catheters and devices: The endotracheal tube tip appears oriented toward the right mainstem bronchus. Consider retraction of 1-2 cm. The endogastric tube is noted with distal portion overlying the stomach. Multiple overlying cardiac leads are present. Lungs: Diffuse bilateral airspace opacities, similar prior study. Pleural spaces: No pneumothorax appreciated. Heart/Mediastinum: Probable pneumomediastinum. Bones/joints: Unremarkable. Soft tissues: Interval. Streaky soft tissue air noted within the bilateral neck and bilateral chest wall, compatible with subcutaneous emphysema. IMPRESSION: 1. Interval. Streaky soft tissue air noted within the bilateral neck and bilateral chest wall, compatible with subcutaneous emphysema. 2. The endotracheal tube tip appears oriented toward the right mainstem bronchus. Consider retraction of 1-2 cm. 3. No pneumothorax appreciated. 4. Probable pneumomediastinum. 5. Diffuse bilateral airspace opacities, similar prior study.
[2020-11-21 08:10] LABS: Lactate Arterial 2.9 mmol/L (0.4-2.0)
--- NOTE | 2020-11-21 08:26 | HMH.ACPN2 ---
Internal Medicine - PN: Subj *Date: 11/21/20 *Time: 08:26 Interval history: Patient remains sedated and on the vent With tidal volume of 440, assist-control 22, PEEP of 14, and 100% FiO2. ABGs this morning show a pH of 7.23 PCO2 of 42.9 PO2 of 142.2 and bicarb of 17.7. Patient remains in a metabolic acidosis. Other laboratory data is pending. Chest x-ray reveals the following: IMPRESSION: 1. Interval. Streaky soft tissue air noted within the bilateral neck and bilateral chest wall, compatible with subcutaneous emphysema. 2. The endotracheal tube tip appears oriented toward the right mainstem bronchus. Consider retraction of 1-2 cm. 3. No pneumothorax appreciated. 4. Probable pneumomediastinum. 5. Diffuse bilateral airspace opacities, similar prior study. Nursing reports last desats when moving patient. She has been's showing sinus bradycardia on the monitor. Exam Vital signs and Labs for Last 24 Hours: Temp Pulse Resp BP Pulse Ox 97.7 F 57 L 28 H 104/49 L 100 11/21/20 08:00 11/21/20 08:00 11/21/20 08:00 11/21/20 08:00 11/21/20 08:00 Laboratory Results - last 24 hr 11/20/20 11:27: POC Glucose 370 H* 11/20/20 16:04: D-Dimer 3.29 H 11/20/20 16:04: Ferritin 652 H, C-Reactive Protein 132.3 H 11/20/20 16:04: Lipase 88721 H 11/20/20 17:40: POC Glucose 367 H* 11/20/20 20:21: POC Glucose 393 H* 11/21/20 05:01: POC Glucose 398 H* 11/21/20 06:00: ABG Lactate 2.9 H 11/21/20 07:28: Specimen Source Left radial, O2 % 100, ABG pH 7.23 L*, ABG pCO2 42.9, ABG pO2 142.2 H, ABG HCO3 17.7 L, ABG Total CO2 19.0 L, ABG O2 Saturation 99, ABG Base Excess -9.8 L, Nhan Test N/a, Vent Rate 22, Tidal Volume 440, PEEP 14 I & O for Last 24 hours: Intake & Output 11/18/20 11/19/20 11/20/20 11/21/20 11:59 11:59 11:59 11:59 Intake Total 1474 / 1583 2963.985 / 2963.985 4858.968 / 4858.968 Output Total 1230 / 1240 300 / 300 687 / 687 Balance 244 / 343 2663.985 / 2663.985 4171.968 / 4171.968 Weight 271 lb 13.279 oz 273 lb 5.971 oz 273 lb 278 lb 8 oz - Constitutional no acute distress - *Routine Respiratory Exam Present: CTA bilaterally (Anteriorly) - *Routine Cardiovascular Exam Present: RRR (Monitor showing sinus bradycardia 50-60) - *Routine Abdominal Exam Present: obese Comments: Bowel sounds present. NG tube in place. Duval catheter to bedside drainage. - *Routine Extremities Exam Present: edema (Bilateral leg) - *Routine Neurological Exam Absent: alert (Sedated) Assessment and Plan (1) Respiratory failure Status: Acute Qualifiers: Chronicity: acute Respiratory failure complication: hypoxia Qualified Code(s): J96.01 - Acute respiratory failure with hypoxia Category: Medical Code(s): J96.90 - Respiratory failure, unspecified, unspecified whether with hypoxia or hypercapnia (2) Bilateral pneumonia Status: Acute Category: Medical Code(s): J18.9 - Pneumonia, unspecified organism (3) COVID-19 Status: Acute Category: Medical Code(s): U07.1 - COVID-19 (4) Diabetes mellitus type 2 in obese Status: Chronic Category: Medical Code(s): E11.69 - Type 2 diabetes mellitus with other specified complication; E66.9 - Obesity, unspecified (5) Obesity Status: Chronic Category: Medical Code(s): E66.9 - Obesity, unspecified (6) Degenerative disc disease Status: Chronic Qualifiers: Spinal region: lumbar Qualified Code(s): M51.36 - Other intervertebral disc degeneration, lumbar region Category: Medical (7) HTN (hypertension) Status: Chronic Category: Medical Code(s): I10 - Essential (primary) hypertension (8) Lumbar radiculopathy Status: Chronic Category: Medical Code(s): M54.16 - Radiculopathy, lumbar region (9) Compression fracture Status: Acute Category: Medical (10) Anxiety Status: Chronic Category: Medical Code(s): F41.9 - Anxiety disorder, unspecified (11) Depression Status: Chronic Category: Medical
--- NOTE | 2020-11-21 09:19 | HMH.PULMPN ---
Internal Medicine - PN: Subj *Date: 11/21/20 *Time: 10:55 Interval history: No acute respiratory events overnight. Patient remains on stable and high ventilator settings. Exam - Constitutional Constitutional:: Present: no acute distress, comfortable - HENMT Exam HENMT: Present: normocephalic - Eye Exam Eyes:: Present: normal appearance both eyes and related structures - Neck Exam Neck:: Present: normal visual inspection - Respiratory Exam Respiratory:: Present: respiratory distress, decreased breath sounds, crackles - Cardiovascular Exam Cardiac:: Present: S1, S2 - GI Exam GI:: Present: soft, distended - Neurological Exam Neurological: Absent: alert, awake, normal cognition - Extremities Exam Extremities: Present: no cyanosis, no clubbing, edema - Psychiatric Exam Psychiatric: Present: normal affect Assessment and Plan (1) Respiratory failure Status: Acute Qualifiers: Chronicity: acute Respiratory failure complication: hypoxia Qualified Code(s): J96.01 - Acute respiratory failure with hypoxia Category: Medical Code(s): J96.90 - Respiratory failure, unspecified, unspecified whether with hypoxia or hypercapnia (2) Bilateral pneumonia Status: Acute Category: Medical Code(s): J18.9 - Pneumonia, unspecified organism (3) COVID-19 Status: Acute Category: Medical Code(s): U07.1 - COVID-19 (4) Diabetes mellitus type 2 in obese Status: Chronic Category: Medical Code(s): E11.69 - Type 2 diabetes mellitus with other specified complication; E66.9 - Obesity, unspecified (5) Obesity Status: Chronic Category: Medical Code(s): E66.9 - Obesity, unspecified (6) Degenerative disc disease Status: Chronic Qualifiers: Spinal region: lumbar Qualified Code(s): M51.36 - Other intervertebral disc degeneration, lumbar region Category: Medical (7) HTN (hypertension) Status: Chronic Category: Medical Code(s): I10 - Essential (primary) hypertension (8) Lumbar radiculopathy Status: Chronic Category: Medical Code(s): M54.16 - Radiculopathy, lumbar region (9) Compression fracture Status: Acute Category: Medical (10) Anxiety Status: Chronic Category: Medical Code(s): F41.9 - Anxiety disorder, unspecified (11) Depression Status: Chronic Category: Medical Code(s): F32.9 - Major depressive disorder, single episode, unspecified (12) Renal failure Status: Acute Category: Medical Code(s): N19 - Unspecified kidney failure - Assessment and plan all Dx Assessment and Plan for all problems:: #Acute on chronic respiratory failure: #COVID-19 pneumonia: 55-year-old vaccinated, recent diagnosed with COVID-19 pneumonia presented to the hospital worsening respiratory status ventilator intubation and mechanical ventilator support and pulmonary was called for further management. Chest x-ray on admission predominant left-sided pulmonary infiltrate. CT chest without contrast from admission bilateral diffuse patchy pulmonary infiltrates. Worsening leukocytosis. Plan: - Continue mechanical ventilatory support - Continue AnalgoSedation with Propofol and Fentanyl with CPOT gal less than or euqal to 2 and RASS goal of 0 to 1 (Deep sedation) - VAP bundle Elevate head of the bed at 30 to 45 degrees Oral care with chlorhexidne GI ulcer prophylaxis - Famotidine 20mg IV BID Chemical DVT prophylaxis Continue mechanical ventilatory support. ABG from this morning continued to show metabolic acidosis. Oxygenation significantly improved, PaO2 at 142. Continue to wean ventilator setting as tolerated. Patient current antibiotics include levofloxacin and Azotrenam, will continue awaiting tracheal aspirate sand Nasal MRSA PCR We will continue remdesivir and dexamethasone for possible COVID-19 pneumonia even though the possibility of positive test can be a false positive result. CRP elevated at 132. D-Dimer elevated at 3.29. Follow with lower
--- NOTE | 2020-11-21 09:21 | CT_ITS ---
PROCEDURE: CT ABDOMEN PELVIS WO CON CLINICAL INDICATION: Pancreatitis COMPARISON: CT ABDPELW CT ABD PELVIS W/ CONTRAST from 05/28/2015 TECHNIQUE: Axial images obtained with sagittal and coronal reformats. All CT scans at the facility use one or more dose reduction, viz: automated exposure control, ma/kV adjustment per patient size (including targeted exams where dose is matched to indication, i.e. head), or iterative reconstruction technique. FINDINGS: Lower thoracic images show extensive subcutaneous air and pneumomediastinum with dissection into the upper abdomen causing a pneumoperitoneum. There has been a prior cholecystectomy. No focal liver lesion is evident. The spleen and adrenal glands have an unremarkable appearance. There is minimal haziness of the peripancreatic fat and minimal obscuration of the border of the pancreas which could be due to mild pancreatitis. No peripancreatic fluid collections apparent. There is a small amount fluid in the right pericolic gutter. No renal or ureteral calculi. No hydronephrosis. No evidence of appendicitis or diverticulitis. There is a Duval catheter in place within the nondistended urinary bladder. Small amount fluid is present in the pelvis nonspecific. There is some air density also noted in the urinary bladder. There has been prior kyphoplasty at L1 with mild wedging of L1. IMPRESSION: 1. Pneumoperitoneum secondary to dissection inferiorly from a pneumo mediastinum. 2. Questionable mild pancreatitis with minimal haziness of the peripancreatic fat and loss of definition of border of the pancreas some of which could be due to motion artifact. 3. Small amount of fluid in the right pericolic gutter and pelvis Dictated by: Nhan Sadler MD 11/21/2020 13:15 Nhan Sadler MD in [facility] 11/21/2020 13:15
[2020-11-21 09:56] LABS: Chloride 115 mmol/L (98-107); Potassium 3.9 mmoL/L (3.5-5.1); Sodium 143 mmol/L (136-145)
[2020-11-21 09:58] LABS: Alanine Aminotransferase 50 U/L (12-78); Aspartate Amino Transferase 197 U/L (14-36); Creatinine Clearance Estimated 17 mL/min (50-200); Estimated Glomerular Filt Rate 17 ml/min (>60); GFR (African American) 20 ML/MIN (>60)
--- NOTE | 2020-11-21 09:58 | HMH.ITSTN ---
PER TALITA CARROLL, WAITING TO SPEAK ON ON PT STATUS
[2020-11-21 09:59] LABS: Albumin/Globulin Ratio 0.8 (1.1-1.8); Alkaline Phosphatase 99 U/L (38-126); Anion Gap 14.9 mEq/L (5-15); Bilirubin,Total 0.3 mg/dl (0.2-1.3); Calcium 5.7 mg/dl (8.4-10.2); Carbon Dioxide 17 mmol/L (22.0-30.0); Globulin 2.6 g/dL (1.3-3.2); Glucose 346 mg/dl (74-100); Total Protein,Serum 4.6 g/dl (6.3-8.2)
[2020-11-21 10:01] LABS: Basophils # 0.1 K/mm3 (0-0.2); Basophils % 0.5 % (0.1-2.0); Blood Urea Nitrogen 87 mg/dl (7-17); Hematocrit 35.5 % (37.0-47.0); Hemoglobin 11.2 g/dL (12.2-16.2); Lymphocytes # 0.5 K/mm3 (0.7-4.5); Lymphocytes % 4.1 % (10-50); Mean Corpuscular HGB Conc 31.6 g/dL (31.8-35.4); Mean Corpuscular Hemoglobin 32.2 pg (27.0-31.2); Mean Corpuscular Volume 101.7 fl (81-99); Mean Platelet Volume 9.7 fl (7.4-10.4); Monocytes # 0.4 K/mm3 (0.1-1.0); Monocytes % 3.7 % (1.7-9.3); Neutrophils # 10.5 K/mm3 (1.8-7.8); Neutrophils % 91.6 % (37.0-80.0); Platelet Count 115 K/mm3 (142-424); Red Blood Count 3.49 M/mm3 (4.20-5.40); Red Cell Distribution Width 14.7 % (11.5-17.5); White Blood Count 11.4 K/mm3 (4.8-10.8)
[2020-11-21 10:06] LABS: MANUAL DIFFERENTIAL MANUAL DIFFERENTIAL (MANUAL DIFF)
[2020-11-21 10:28] LABS: Lymphocytes % 4 % (10-50); Monocytes % 2 % (2-9); Neutrophils % 94 % (42-76); Total Cells Counted 100
[2020-11-21 10:29] LABS: Platelet Estimate Normal
--- NOTE | 2020-11-21 11:24 | PC.NURSE ---
RESP CARE NOTE: ET tube withdrawn to 23 cm at the lip per Dr Castellano verbal order. No complications noted.
--- NOTE | 2020-11-21 12:25 | CT_ITS ---
PROCEDURE: CT CHEST WO CON CLINICAL INDICATION: pneumomediasteinum COMPARISON: CT CT CHEST WO CON from 11/18/2020 CR XR CHEST PORTABLE from 11/18/2020 CR XR CHEST PORTABLE from 11/19/2020 CR XR CHEST PORTABLE from 11/20/2020 CR XR CHEST PORTABLE from 11/21/2020 TECHNIQUE: Axial images obtained with sagittal and coronal reformats. All CT scans at the facility use one or more dose reduction, viz: automated exposure control, ma/kV adjustment per patient size (including targeted exams where dose is matched to indication, i.e. head), or iterative reconstruction technique. FINDINGS: HEART AND MEDIASTINAL STRUCTURES: There is extensive a pneumo mediastinum and extensive subcutaneous emphysema within both breasts in the anterior chest wall with air dissecting into the anterior neck. Endotracheal tube is present. The tip is 2.6 cm above the enid. Nasogastric tube is present with the tip not on the images but below the GE junction. LUNGS AND PLEURAL SPACES: There is diffuse consolidation in the upper and lower lobes bilaterally with some sparing of the right upper lobe anteriorly and right middle lobe. No obvious pneumothorax. No significant effusion. BONY STRUCTURES: No acute bony abnormalities apparent. UPPER ABDOMEN: See abdomen report ADDITIONAL FINDINGS: None IMPRESSION: Pneumomediastinum with diffuse amount of subcutaneous emphysema. No obvious pneumothorax. Diffuse bilateral pulmonary consolidation consistent with pneumonia Dictated by: Nhan Sadler MD 11/21/2020 12:57 Nhan Sadler MD in [facility] 11/21/2020 12:57
--- NOTE | 2020-11-21 12:45 | PC.NURSE ---
1001 received critical lab values on pt. results verified and repeated. pt name and v number verified and repeated. [address] Castellano of pt lab results. [id number] cre 2.90
--- NOTE | 2020-11-21 17:22 | PC.NURSE ---
V/O dr delatorre at [id number]: give 20mg lasix times 1
[2020-11-21 21:16] LABS: POC Glucose,Bedside 384 (70-110)
[2020-11-21 21:16] LABS: POC Glucose,Bedside 363 (70-110)
[2020-11-21 21:16] LABS: POC Glucose,Bedside 419 (70-110)
[2020-11-21 21:16] LABS: POC Glucose,Bedside 362 (70-110)
--- NOTE | 2020-11-21 22:45 | PC.NURSE ---
BP 95/45 Levo increased to 12mcg/kg
[2020-11-22] VITALS (28 sets, daily range): BP systolic 90–131; BP diastolic 48–71; PULSE 52–110; RESP 20–35; TEMP 36.5–37.4; O2SAT 85–96; BMI 49.2
--- NOTE | 2020-11-22 06:00 | XR_ITS ---
PROCEDURE INFORMATION: Exam: XR Chest Exam date and time: 11/22/2020 6:00 AM Age: 55 years old Clinical indication: Device placement; Ett placement (vent status); Patient HX: Covid; Additional info: Intubation TECHNIQUE: Imaging protocol: XR of the chest. Views: 1 view. COMPARISON: CT CHEST WO CON 11/21/2020 12:34 PM FINDINGS: Tubes, catheters and devices: Endotracheal tube noted with the tip above the enid approximately 2 cm. The endogastric tube is noted with distal portion overlying the stomach. Multiple overlying cardiac leads are present. Lungs: Extensive bilateral airspace opacities, similar prior study. Pleural spaces: Unremarkable. No pleural effusion. No pneumothorax. Heart/Mediastinum: Pneumomediastinum and bilateral chest and neck streaky air compatible with subcutaneous emphysema. Bones/joints: Unremarkable. IMPRESSION: 1. No significant interval change. Extensive subcutaneous emphysema and pneumomediastinum. Unchanged bilateral airspace opacities. 2. Support catheters noted, as above. No obvious pneumothorax.
[2020-11-22 07:43] LABS: ABG Base Excess -3.9 mmol/L (-2.4-2.3); ABG HCO3 23.1 mmhg (22.0-26.0); ABG Oxygen Saturation 91 % (90-100); ABG PH 7.27 mmol/L (7.35-7.45); ABG PO2 63.5 mmhg (80-100); ABG TCO2 24.6 mmhg (23-27)
--- NOTE | 2020-11-22 08:21 | HMH.ACPN2 ---
<Ladonna Tang - Last Filed: 11/22/20 08:21> Internal Medicine - PN: Subj *Date: 11/22/20 *Time: 08:21 Interval history: Patient has been sensitive with movement with decrease in O2 sats during the night. She remains on propofol fentanyl, and Levophed. She is on the vent with tidal volume of 475, FiO2 100%, assist control of 26 and 20 of PEEP. ABGs are pending this a.m. Chest x-ray this a.m. reveals no significant change. Extensive subcu emphysema and pneumomediastinum. No obvious pneumothorax. A.m. labs are pending. Improved urinary output since IV Lasix. Exam Vital signs and Labs for Last 24 Hours: Temp Pulse Resp BP Pulse Ox 98.7 F 62 26 H 107/49 L 91 L 11/22/20 00:00 11/22/20 06:53 11/22/20 06:53 11/22/20 06:53 11/22/20 06:53 Laboratory Results - last 24 hr 11/21/20 09:14: WBC 11.4 H D, RBC 3.49 L, Hgb 11.2 L, Hct 35.5 L, MCV 101.7 H, MCH 32.2 H, MCHC 31.6 L, RDW 14.7, Plt Count 115 L D, MPV 9.7, Neut % (Auto) 91.6 H, Lymph % (Auto) 4.1 L, Mcdonald % (Auto) 3.7, Eos % (Auto) 0.0 L, Baso % (Auto) 0.5, Neut # (Auto) 10.5 H, Lymph # (Auto) 0.5 L, Mcdonald # (Auto) 0.4, Eos # (Auto) 0.0, Baso # (Auto) 0.1, Total Counted 100, Neutrophils % (Manual) 94 H, Lymphocytes % (Manual) 4 L, Monocytes % (Manual) 2, Platelet Estimate Normal 11/21/20 09:14: Sodium 143, Potassium 3.9 D, Chloride 115 H, Carbon Dioxide 17 L, Anion Gap 14.9, BUN 87 H, Creatinine 2.90 H, Estimated Creat Clear 17, Estimated GFR 17 L*, Est GFR ( Amer) 20 L, Glucose 346 H, Calcium 5.7 L, Total Bilirubin 0.3, AST 197 H, ALT 50, Alkaline Phosphatase 99, Total Protein 4.6 L D, Albumin 2.0 L, Globulin 2.6, Albumin/Globulin Ratio 0.8 L 11/21/20 09:40: POC Glucose 419 H* 11/21/20 11:52: POC Glucose 362 H* 11/21/20 16:11: POC Glucose 384 H* 11/21/20 20:43: POC Glucose 363 H* I & O for Last 24 hours: Intake & Output 11/19/20 11/20/20 11/21/20 11/22/20 11:59 11:59 11:59 11:59 Intake Total 1474 / 1583 2963.985 / 2963.985 4875.093 / 4875.093 4158.190 / 4158.190 Output Total 1230 / 1240 300 / 300 687 / 937 1140 / 1140 Balance 244 / 343 2663.985 / 2663.985 4188.093 / 3938.093 3018.190 / 3018.190 Weight 273 lb 5.971 oz 273 lb 278 lb 8 oz 278 lb 0.046 oz Microbiology Reports for the Last 24 Hours: Microbiology 11/18/20 00:50 Anus CRE Surveillance Culture - Final Negative 11/19/20 00:25 Sputum - Expectorated Sputum Gram Stain - Final 11/19/20 00:25 Sputum - Expectorated Sputum Sputum Culture - Preliminary - Constitutional no acute distress Comments: Sedated - *Routine Neck Exam Comments: Fullness around lower neck and upper chest area - *Routine Respiratory Exam Present: CTA bilaterally (Anteriorly with good bilateral breath sounds) - *Routine Cardiovascular Exam Present: RRR (Monitor showing sinus rhythm in the sixties) - *Routine Abdominal Exam Present: obese Comments: Bowel sounds present. NG tube clamped. Duval to bedside drainage. - *Routine Extremities Exam Present: edema (Bilateral legs) - *Routine Neurological Exam Absent: alert Sedated Assessment and Plan (1) Respiratory failure Status: Acute Qualifiers: Chronicity: acute Respiratory failure complication: hypoxia Qualified Code(s): J96.01 - Acute respiratory failure with hypoxia Category: Medical Code(s): J96.90 - Respiratory failure, unspecified, unspecified whether with hypoxia or hypercapnia (2) Bilateral pneumonia Status: Acute Category: Medical Code(s): J18.9 - Pneumonia, unspecified organism (3) COVID-19 Status: Acute Category: Medical Code(s): U07.1 - COVID-19 (4) Diabetes mellitus type 2 in obese Status: Chronic Category: Medical Code(s): E11.69 - Type 2 diabetes mellitus with other specified complication; E66.9 - Obesity, unspecified (5) Obesity Status: Chronic Category: Medical Code(s): E66.9 - Obesity, unspecified (6) Degenerative disc disease Status:
--- NOTE | 2020-11-22 08:54 | HMH.PULMPN ---
Internal Medicine - PN: Subj *Date: 11/22/20 *Time: 14:50 Interval history: No acute respiratory events overnight. Exam - Constitutional Constitutional:: Present: no acute distress - HENMT Exam HENMT: Present: normocephalic - Eye Exam Eyes:: Present: normal appearance both eyes and related structures - Respiratory Exam Respiratory:: Present: respiratory distress, decreased breath sounds, crackles - Cardiovascular Exam Cardiac:: Present: S1, S2 - GI Exam GI:: Present: soft, distended - Skin Exam Skin: Present: no rash - Neurological Exam Neurological: Absent: alert, awake, normal cognition - Extremities Exam Extremities: Present: no cyanosis, no clubbing, edema Assessment and Plan (1) Respiratory failure Status: Acute Qualifiers: Chronicity: acute Respiratory failure complication: hypoxia Qualified Code(s): J96.01 - Acute respiratory failure with hypoxia Category: Medical Code(s): J96.90 - Respiratory failure, unspecified, unspecified whether with hypoxia or hypercapnia (2) Bilateral pneumonia Status: Acute Category: Medical Code(s): J18.9 - Pneumonia, unspecified organism (3) COVID-19 Status: Acute Category: Medical Code(s): U07.1 - COVID-19 (4) Diabetes mellitus type 2 in obese Status: Chronic Category: Medical Code(s): E11.69 - Type 2 diabetes mellitus with other specified complication; E66.9 - Obesity, unspecified (5) Obesity Status: Chronic Category: Medical Code(s): E66.9 - Obesity, unspecified (6) Degenerative disc disease Status: Chronic Qualifiers: Spinal region: lumbar Qualified Code(s): M51.36 - Other intervertebral disc degeneration, lumbar region Category: Medical (7) HTN (hypertension) Status: Chronic Category: Medical Code(s): I10 - Essential (primary) hypertension (8) Lumbar radiculopathy Status: Chronic Category: Medical Code(s): M54.16 - Radiculopathy, lumbar region (9) Compression fracture Status: Acute Category: Medical (10) Anxiety Status: Chronic Category: Medical Code(s): F41.9 - Anxiety disorder, unspecified (11) Depression Status: Chronic Category: Medical Code(s): F32.9 - Major depressive disorder, single episode, unspecified (12) Renal failure Status: Acute Category: Medical Code(s): N19 - Unspecified kidney failure - Assessment and plan all Dx Assessment and Plan for all problems:: #Acute on chronic respiratory failure: #COVID-19 pneumonia: 55-year-old vaccinated, recent diagnosed with COVID-19 pneumonia presented to the hospital worsening respiratory status ventilator intubation and mechanical ventilator support and pulmonary was called for further management. Chest x-ray on admission predominant left-sided pulmonary infiltrate. CT chest without contrast from admission bilateral diffuse patchy pulmonary infiltrates. Worsening leukocytosis. Plan: - Continue mechanical ventilatory support - Continue AnalgoSedation with versed and Fentanyl with CPOT gal less than or euqal to 2 and RASS goal of 0 to 1 (Deep sedation) - VAP bundle Elevate head of the bed at 30 to 45 degrees Oral care with chlorhexidne GI ulcer prophylaxis - Famotidine 20mg IV BID Chemical DVT prophylaxis Continue mechanical ventilatory support. ABG from this morning continued to show metabolic acidosis along with worsening respiratory acidosis from yesterday. PaO2 at 63.5. Patient current antibiotics include levofloxacin and Azotrenam, will continue awaiting tracheal aspirate sand Nasal MRSA PCR We will continue remdesivir and dexamethasone for possible COVID-19 pneumonia even though the possibility of positive test can be a false positive result. CRP elevated at 132. D-Dimer elevated at 3.29. Lower extremity venous Doppler negative for DVT CT chest without contrast bilateral lower lobe dense consolidation along with groundglass opacities in upper lobe. -Abdomen distended. Lipa
[2020-11-22 08:55] LABS: Allen's Test Patient Unable; Oxygen 100 %; PEEP 22; Source Right Radial; Tidal Volume 475; Vent Rate 26
[2020-11-22 08:56] LABS: ABG PCO2 51.6 mmhg (35.0-45.0); Lactate Arterial 3.1 mmol/L (0.4-2.0)
[2020-11-22 09:11] LABS: ABG PH 7.23 mmol/L (7.35-7.45)
[2020-11-22 09:12] LABS: ABG Base Excess -9.4 mmol/L (-2.4-2.3); ABG HCO3 17.8 mmhg (22.0-26.0); ABG Oxygen Saturation 99 % (90-100); ABG PCO2 43.7 mmhg (35.0-45.0); ABG PO2 141.9 mmhg (80-100); ABG TCO2 19.2 mmhg (23-27); Oxygen 100% %; Tidal Volume 475; Vent Rate 26
[2020-11-22 09:13] LABS: PEEP 22; Source Right Radial
[2020-11-22 11:35] LABS: Basophils # 0.2 K/mm3 (0-0.2); Hematocrit 43.5 % (37.0-47.0); Hemoglobin 14.3 g/dL (12.2-16.2); Lymphocytes # 0.6 K/mm3 (0.7-4.5); Lymphocytes % 3.8 % (10-50); Mean Corpuscular HGB Conc 32.9 g/dL (31.8-35.4); Mean Corpuscular Volume 100.3 fl (81-99); Mean Platelet Volume 8.2 fl (7.4-10.4); Monocytes # 0.3 K/mm3 (0.1-1.0); Monocytes % 1.7 % (1.7-9.3); Neutrophils # 14.6 K/mm3 (1.8-7.8); Neutrophils % 93.4 % (37.0-80.0); Platelet Count 259 K/mm3 (142-424); Red Blood Count 4.34 M/mm3 (4.20-5.40); Red Cell Distribution Width 14.2 % (11.5-17.5); White Blood Count 15.7 K/mm3 (4.8-10.8)
[2020-11-22 11:43] LABS: MANUAL DIFFERENTIAL MANUAL DIFFERENTIAL (MANUAL DIFF)
[2020-11-22 12:26] LABS: Lymphocytes % 7 % (10-50); Monocytes % 3 % (2-9); Neutrophils % 90 % (42-76); Total Cells Counted 100
[2020-11-22 12:27] LABS: Hypochromasia 2+; Macrocytosis 2+; Platelet Estimate Normal
[2020-11-22 12:35] LABS: Chloride 110 mmol/L (98-107); Potassium 4.9 mmoL/L (3.5-5.1); Sodium 146 mmol/L (136-145)
[2020-11-22 12:38] LABS: Alanine Aminotransferase 66 U/L (12-78); Albumin Level 2.4 g/dl (3.5-5.0); Albumin/Globulin Ratio 0.9 (1.1-1.8); Alkaline Phosphatase 114 U/L (38-126); Anion Gap 19.9 mEq/L (5-15); Aspartate Amino Transferase 192 U/L (14-36); Bilirubin,Total 0.6 mg/dl (0.2-1.3); Carbon Dioxide 21 mmol/L (22.0-30.0); Creatinine Clearance Estimated 16 mL/min (50-200); Estimated Glomerular Filt Rate 16 ml/min (>60); GFR (African American) 19 ML/MIN (>60); Globulin 2.8 g/dL (1.3-3.2); Glucose 293 mg/dl (74-100); Total Protein,Serum 5.2 g/dl (6.3-8.2)
[2020-11-22 12:55] LABS: Triglycerides 1516 mg/dl (30-150)
[2020-11-22 12:58] LABS: Blood Urea Nitrogen 108 mg/dl (7-17)
--- NOTE | 2020-11-22 16:26 | HMH.GSCON ---
*Admission Date: 11/18/20 *Reason for consult:: Concern for pneumoperitoneum, abdominal distention, pancreatitis on CT scan *History of present illness: Patient is a 55-year-old female from [place] with a BMI of 50 with poorly controlled diabetes on multiple medications who had been diagnosed with Covid on approximately 11/10/2020. She had presented to the emergency department with increasing shortness of air and was admitted on 11/18/2020. She was placed on BiPAP and managed medically for her Covid. However, she had respiratory deterioration and was shortly thereafter intubated. She was placed on very high PEEP for adequate oxygenation. She has been on pressors to maintain blood pressure. She has shown worsening renal failure. She was noted to have some abdominal distention as well as appreciably elevated lipase. She underwent noncontrast CT scan yesterday morning on 11/21/2020 which revealed findings of pneumoperitoneum dissecting from pneumomediastinum. CT scan also revealed haziness around the pancreas consistent with radiographic pancreatitis. Surgical consultation was ordered this afternoon. Patient has been too unstable even for central line placement due to the inability to lie supinely. Review of Systems - Review of Systems Review of systems:: unable to obtain [facility] History I have reviewed the patient's past medical history: Yes Medical History: Reports:: Anxiety, Depression, Diabetes Mellitus Type 2, Gastroesophageal Reflux Disease(GERD), Hyperlipidemia, Hypertension Denies:: Cancer, Diabetes Mellitus Type 1, Internal Pacemaker, MRSA, Seizures *Have you ever received a pneumonia vaccine?: No *Have you received a flu vaccine this season?: No Other Medical History: Denies: Blood Transfusion Reaction Other Surgeries: Yes: Cholecystectomy (March 23, 2014), Colonoscopy (March 25, 2012), Dilation and Curettage, Other (Kyphoplasty November 05, 2017). No: Pacemaker Amputation: No Fractures: No - *Social History Last grade of school completed: 9th or 10th Smoking Status: Never smoker Alcohol Intake: never *Occupational Status:: other Housing: house Household Members: spouse *Travel in the last 8 weeks: None - Psychiatric History Expresses thoughts of harming self/others: None Pschychiatric History:: Reports:: Anxiety, Depression Family Hx:: Cancer, Coronary Artery Disease Meds Home Medications Medication Instructions Recorded Confirmed Type Aspirin [Aspirin 81mg chewable 81 mg PO DAILY 08/06/17 11/18/20 History tab] Gabapentin [Neurontin 600mg 600 tab PO QID 08/06/17 11/18/20 History tablet] Insulin Glargine,Hum.rec.anlog 70 unit SQ DAILY 08/06/17 11/18/20 History [Kody Bella] Insulin NPH Hum/Reg Insulin Hm 20 unit SQ TID 08/06/17 11/18/20 History [Novolin 70-30 100 Unit/ml Vial] Potassium Chloride [Klor-Con 10mEq 20 meq PO DAILY 08/06/17 11/18/20 History tab] Sulindac 200 mg PO BID 08/06/17 11/18/20 History diazePAM [Valium 5mg tablets] 2.5 mg PO 0900,1200 08/06/17 11/18/20 History diazePAM [diazePAM 5mg Tablet] 5 mg PO HS 08/06/17 11/18/20 History polyethylene glycoL 3350 [Miralax 8.5 gm PO DAILY 08/06/17 11/18/20 History Powder] Albuterol Sulfate [Albuterol 2 puffs IH TIDP PRN 11/18/20 11/18/20 History Sulfate Hfa] Canagliflozin/Metformin HCl 1 tab PO DAILY 11/18/20 11/18/20 History [Invokamet 50-1,000 mg Tablet] Duloxetine HCl 60 mg PO DAILY 11/18/20 11/18/20 History Losartan/Hydrochlorothiazide 1 each PO DAILY 11/18/20 11/18/20 History [Losartan-Hctz 100-25 mg Tab] Metoprolol Succinate [Metoprolol 25 mg PO DAILY 11/18/20 11/18/20 History Succinate 25mg Tablet*] Pioglitazone HCl 15 mg PO DAILY 11/18/20 11/18/20 History Allergies Allergy/AdvReac Type Severity Reaction Status Date / Time cephalexin [CEPHALEXIN] Allergy Intermediate I-HIVES Verified 06/10/19 09:30 Sulfa (Sulfonamide Allergy Unknown Verified 06/10/19 09:30 Antibiotics) Exam
--- NOTE | 2020-11-22 20:56 | PC.NURSE ---
Fentanyl running at 150mcg/hr at shift change. Pt has been over breathing vent rate. PRN fent push given per APR. Fentanyl infusion increased to 175mcg/hr at 2014 and to 200mcg/hr at 2042
--- NOTE | 2020-11-22 21:16 | PC.NURSE ---
Fentanyl maxed at 250mcg/hr at 2114
--- NOTE | 2020-11-22 23:47 | PC.NURSE ---
Gray paged at this time
--- NOTE | 2020-11-22 23:49 | PC.NURSE ---
Verbal orders from Gray to cut insulin rate by half to 6 units/hr and give 1amp of d50 at this time
--- NOTE | 2020-11-22 23:53 | PC.NURSE ---
BP 90/52 Levo increased to 14mcg/kg
[2020-11-23] VITALS (31 sets, daily range): BP systolic 87–128; BP diastolic 45–65; PULSE 78–120; RESP 26–35; TEMP 37–38.6; O2SAT 84–97; BMI 51.5
--- NOTE | 2020-11-23 00:13 | PC.NURSE ---
Levo increased to 16mcg/kg d/t BP 98/51 MAP of 59
[2020-11-23 00:50] LABS: POC Glucose,Bedside 284 (70-110)
[2020-11-23 00:50] LABS: POC Glucose,Bedside 256 (70-110)
[2020-11-23 00:50] LABS: POC Glucose,Bedside 113 (70-110)
[2020-11-23 00:50] LABS: POC Glucose,Bedside 313 (70-110)
[2020-11-23 00:50] LABS: POC Glucose,Bedside 236 (70-110)
[2020-11-23 00:50] LABS: POC Glucose,Bedside 277 (70-110)
--- NOTE | 2020-11-23 01:56 | PC.NURSE ---
Addendum entered by Gaudencio Han RN 11/23/20 02:34: Fentanyl increased back to 250mcg/hr Original Note: fentanyl decreased to 200mcg/hr
--- NOTE | 2020-11-23 02:24 | PC.NURSE ---
Levo increased to 18mcg/kg d/t BP of 99/56 MAP of 62
--- NOTE | 2020-11-23 04:26 | PC.NURSE ---
Stiven delatorre at this time
--- NOTE | 2020-11-23 04:29 | PC.NURSE ---
Spoke with MD Hector in regards to finger stick of 70. Verbal orders recived to decrease insulin by 50% and order CBC and bmp for am labs
--- NOTE | 2020-11-23 05:51 | PC.NURSE ---
Orders from Gray to give 50mg rocuronium IV once now
--- NOTE | 2020-11-23 06:00 | XR_ITS ---
PROCEDURE INFORMATION: Exam: XR Chest Exam date and time: 11/23/2020 6:00 AM Age: 55 years old Clinical indication: Device placement; Ett placement (vent status); Patient HX: SOA, intubation TECHNIQUE: Imaging protocol: XR of the chest. Views: 1 view. COMPARISON: CR XR CHEST PORTABLE 11/22/2020 5:05 AM FINDINGS: Tubes, catheters and devices: Endotracheal tube and nasogastric tube in appropriate position. Lungs: Diffuse consolidations throughout the bilateral lung little, unchanged compared to the previous exam. Pleural spaces: Unremarkable. No pleural effusion. No pneumothorax. Heart/Mediastinum: Unremarkable. No cardiomegaly. Bones/joints: Unremarkable. There is no acute fracture present. IMPRESSION: 1. Endotracheal tube and nasogastric tube in appropriate position. 2. Diffuse consolidations throughout the bilateral lung little, unchanged compared to the previous exam.
--- NOTE | 2020-11-23 06:08 | PC.NURSE ---
0610 Ryan at bedside. RT managing airway. Rocuronium IV given. Finger stick BG of 52 at this time. 0618- Hector paged and notified of BG. Orders to stop insulin gtt and give 1 amp of D50 IV once now 0620- BP noted to be 88/48 HR 90. Levo increased to 20mcg/min
[2020-11-23 06:15] LABS: Basophils # 0.2 K/mm3 (0-0.2); Basophils % 0.8 % (0.1-2.0); Eosinophils % 0.1 % (0.1-12.0); Hemoglobin 13.5 g/dL (12.2-16.2); Lymphocytes # 0.8 K/mm3 (0.7-4.5); Lymphocytes % 4.5 % (10-50); Mean Corpuscular HGB Conc 32.2 g/dL (31.8-35.4); Mean Corpuscular Hemoglobin 31.4 pg (27.0-31.2); Mean Corpuscular Volume 97.5 fl (81-99); Mean Platelet Volume 8.8 fl (7.4-10.4); Monocytes # 0.4 K/mm3 (0.1-1.0); Neutrophils # 16.9 K/mm3 (1.8-7.8); Neutrophils % 92.6 % (37.0-80.0); Platelet Count 330 K/mm3 (142-424); Red Blood Count 4.31 M/mm3 (4.20-5.40); Red Cell Distribution Width 14.8 % (11.5-17.5); White Blood Count 18.3 K/mm3 (4.8-10.8)
[2020-11-23 06:20] LABS: MANUAL DIFFERENTIAL MANUAL DIFFERENTIAL (MANUAL DIFF)
[2020-11-23 06:34] LABS: Anion Gap 13.5 mEq/L (5-15); Calcium 6.8 mg/dl (8.4-10.2); Carbon Dioxide 33 mmol/L (22.0-30.0); Chloride 114 mmol/L (98-107); Creatinine Clearance Estimated 19 mL/min (50-200); Estimated Glomerular Filt Rate 19 ml/min (>60); GFR (African American) 23 ML/MIN (>60); Potassium 3.5 mmoL/L (3.5-5.1)
[2020-11-23 06:37] LABS: Blood Urea Nitrogen 103 mg/dl (7-17); Glucose 50 mg/dl (74-100); Sodium 157 mmol/L (136-145)
--- NOTE | 2020-11-23 06:37 | PC.NURSE ---
Addendum entered by Gaudencio Han RN 11/23/20 06:41: 0641- Notified Hector of critical values. No new orders. Original Note: Critcal labs recieved from lab at this time from [facility]. US=[id number] AXI=[id number] Glucose=50 Will notify .
[2020-11-23 07:20] LABS: ABG Base Excess 2.3 mmol/L (-2.4-2.3); ABG HCO3 28.5 mmhg (22.0-26.0); ABG Oxygen Saturation 72 % (90-100); ABG PH 7.31 mmol/L (7.35-7.45); ABG TCO2 30.3 mmhg (23-27)
[2020-11-23 07:38] LABS: Lymphocytes % 9 % (10-50); Monocytes % 5 % (2-9); Neutrophils % 86 % (42-76); Platelet Estimate Normal; RBC Morphology Normal; Total Cells Counted 100
[2020-11-23 07:39] LABS: Nucleated Red Blood Cells 2
[2020-11-23 07:51] LABS: Allen's Test UNABLE; Oxygen 100 %; PEEP 22; Source L RADIAL; Tidal Volume 475; Vent Rate 28
[2020-11-23 07:53] LABS: ABG PCO2 57.4 mmhg (35.0-45.0); ABG PO2 39.1 mmhg (80-100)
--- NOTE | 2020-11-23 07:55 | PC.NURSE ---
received notification from RT (Carla Urbina) with the following: pCO2 57.[address] Castellano made aware.
--- NOTE | 2020-11-23 08:15 | PC.NURSE ---
received call from Dr. Castellano with new order: Rocuronium 50mg IV x 1 dose NOW. Order faxed to pharmacy. Dr. Godinez is in the ICU and has agreed to push the medication.
[2020-11-23 08:36] LABS: Lactate Arterial 3.9 mmol/L (0.4-2.0)
--- NOTE | 2020-11-23 09:15 | HMH.PULMPN ---
Internal Medicine - PN: Subj *Date: 11/23/20 *Time: 15:40 Interval history: Patient noted on episode of desaturation overnight. Eventually improved status post paralytics and increasing PEEP. Exam - Constitutional Constitutional:: Absent: no acute distress - HENMT Exam HENMT: Present: normocephalic - Eye Exam Eyes:: Present: normal appearance both eyes and related structures - Neck Exam Neck:: Present: normal visual inspection - Respiratory Exam Respiratory:: Present: bibailar crackels heard, crackles - Cardiovascular Exam Cardiac:: Present: S1, S2 - GI Exam GI:: Present: soft, rigid, obese - Neurological Exam Neurological: Absent: alert, awake, normal cognition - Extremities Exam Extremities: Present: no cyanosis, no clubbing, edema Assessment and Plan (1) Respiratory failure Status: Acute Qualifiers: Chronicity: acute Respiratory failure complication: hypoxia Qualified Code(s): J96.01 - Acute respiratory failure with hypoxia Category: Medical Code(s): J96.90 - Respiratory failure, unspecified, unspecified whether with hypoxia or hypercapnia (2) Bilateral pneumonia Status: Acute Category: Medical Code(s): J18.9 - Pneumonia, unspecified organism (3) COVID-19 Status: Acute Category: Medical Code(s): U07.1 - COVID-19 (4) Diabetes mellitus type 2 in obese Status: Chronic Category: Medical Code(s): E11.69 - Type 2 diabetes mellitus with other specified complication; E66.9 - Obesity, unspecified (5) Obesity Status: Chronic Category: Medical Code(s): E66.9 - Obesity, unspecified (6) Degenerative disc disease Status: Chronic Qualifiers: Spinal region: lumbar Qualified Code(s): M51.36 - Other intervertebral disc degeneration, lumbar region Category: Medical (7) HTN (hypertension) Status: Chronic Category: Medical Code(s): I10 - Essential (primary) hypertension (8) Lumbar radiculopathy Status: Chronic Category: Medical Code(s): M54.16 - Radiculopathy, lumbar region (9) Compression fracture Status: Acute Category: Medical (10) Anxiety Status: Chronic Category: Medical Code(s): F41.9 - Anxiety disorder, unspecified (11) Depression Status: Chronic Category: Medical Code(s): F32.9 - Major depressive disorder, single episode, unspecified - Assessment and plan all Dx Assessment and Plan for all problems:: #Acute on chronic respiratory failure: #COVID-19 pneumonia: 55-year-old vaccinated, recent diagnosed with COVID-19 pneumonia presented to the hospital worsening respiratory status ventilator intubation and mechanical ventilator support and pulmonary was called for further management. Chest x-ray on admission predominant left-sided pulmonary infiltrate. CT chest without contrast from admission bilateral diffuse patchy pulmonary infiltrates. Worsening leukocytosis. Assessment: - Continue mechanical ventilatory support - Continue AnalgoSedation with versed and Fentanyl with CPOT gal less than or euqal to 2 and RASS goal of 0 to 1 (Deep sedation) - VAP bundle Elevate head of the bed at 30 to 45 degrees Oral care with chlorhexidne GI ulcer prophylaxis - Famotidine 20mg IV BID Chemical DVT prophylaxis Continue mechanical ventilatory support. ABG from this morning continued to show metabolic acidosis along with worsening respiratory acidosis from yesterday. PaO2 at 39.1, vent setting changes and oxygenation improved. We will closely monitor. Patient current antibiotics include levofloxacin and Azotrenam. Nasal MRSA PCR negative sputum normal respiratory masood. Blood cultures no growth so far. We will continue remdesivir and dexamethasone for possible COVID-19 pneumonia even though the possibility of positive test can be a false positive result. CRP elevated at 132. D-Dimer elevated at 3.29. Lower extremity venous Doppler negative for DVT CT chest without contrast bilateral lower lobe dense consolidation
--- NOTE | 2020-11-23 10:28 | HMH.ACPN2 ---
Internal Medicine - PN: Subj *Date: 11/23/20 *Time: 10:28 Interval history: The patient continues to struggle with her respiratory status. She still on Levophed and her renal status is also an issue. The pancreatitis is a new concern with markedly elevated lipids and some evidence of inflammation on CT. She is struggling a bit more against the ventilator. She is had to have increased sedation and muscle relaxation with fentanyl and Roccuronium. Her sodium was quite high this morning and I am going to change her IV fluids. Her weight is up substantially and I will order Lasix. Good to try to increase her IV fluid rate to see if we can help blood pressure and get off the Levophed. Her overall fluid balance however has not been terrible. Just seems the kidneys are not doing their job. Her breath sounds actually sound better this morning. Her blood pressure has been relatively stable. She has dropped her blood sugars and the insulin drip was decreased and then discontinued this morning. She did require an amp of D50 this morning. Dr. Young had a chance to talk to her sister Jes Quijano this morning and apprise her of the patient's status. Exam Vital signs and Labs for Last 24 Hours: Temp Pulse Resp BP Pulse Ox 99.3 F 114 H 28 H 101/57 L 90 L 11/23/20 06:32 11/23/20 08:00 11/23/20 08:00 11/23/20 08:00 11/23/20 08:00 Laboratory Results - last 24 hr 11/22/20 05:23: POC Glucose 313 H* 11/22/20 11:10: WBC 15.7 H D, RBC 4.34, Hgb 14.3, Hct 43.5, MCV 100.3 H, MCH 33.0 H, MCHC 32.9, RDW 14.2, Plt Count 259 D, MPV 8.2, Neut % (Auto) 93.4 H, Lymph % (Auto) 3.8 L, Faulkner % (Auto) 1.7, Eos % (Auto) 0.0 L, Baso % (Auto) 1.0, Neut # (Auto) 14.6 H, Lymph # (Auto) 0.6 L, Faulkner # (Auto) 0.3, Eos # (Auto) 0.0, Baso # (Auto) 0.2, Total Counted 100, Neutrophils % (Manual) 90 H, Lymphocytes % (Manual) 7 L, Monocytes % (Manual) 3, Platelet Estimate Normal, Hypochromasia 2+, Macrocytosis 2+ 11/22/20 11:10: Sodium 146 H, Potassium 4.9 D, Chloride 110 H, Carbon Dioxide 21 L, Anion Gap 19.9 H, BUN 108 H*, Creatinine 3.00 H, Estimated Creat Clear 16, Estimated GFR 16 L*, Est GFR ( Amer) 19 L*, Glucose 293 H, Calcium 7.0 L, Total Bilirubin 0.6, AST 192 H, ALT 66 D, Alkaline Phosphatase 114, Total Protein 5.2 L, Albumin 2.4 L D, Globulin 2.8, Albumin/Globulin Ratio 0.9 L 11/22/20 11:10: Triglycerides 1516 H 11/22/20 12:18: POC Glucose 277 H 11/22/20 17:05: POC Glucose 256 H 11/22/20 18:25: POC Glucose 284 H 11/22/20 19:56: POC Glucose 236 H 11/22/20 23:28: POC Glucose 113 H 11/23/20 05:25: WBC 18.3 H, RBC 4.31, Hgb 13.5, Hct 42.0, MCV 97.5, MCH 31.4 H, MCHC 32.2, RDW 14.8, Plt Count 330 D, MPV 8.8, Neut % (Auto) 92.6 H, Lymph % (Auto) 4.5 L, Faulkner % (Auto) 2.0, Eos % (Auto) 0.1, Baso % (Auto) 0.8, Neut # (Auto) 16.9 H, Lymph # (Auto) 0.8, Faulkner # (Auto) 0.4, Eos # (Auto) 0.0, Baso # (Auto) 0.2, Total Counted 100, Neutrophils % (Manual) 86 H, Lymphocytes % (Manual) 9 L, Monocytes % (Manual) 5, Nucleated RBCs 2, Platelet Estimate Normal, RBC Morphology Normal 11/23/20 05:25: Sodium 157 H*, Potassium 3.5 D, Chloride 114 H, Carbon Dioxide 33 H, Anion Gap 13.5, BUN 103 H*, Creatinine 2.60 H, Estimated Creat Clear 19, Estimated GFR 19 L*, Est GFR ( Amer) 23 L D, Glucose 50 L D, Calcium 6.8 L 11/23/20 06:00: ABG Lactate 3.9 H 11/23/20 07:00: Specimen Source L radial, O2 % 100, ABG pH 7.31 L, ABG pCO2 57.4 H, ABG pO2 39.1 L, ABG HCO3 28.5 H, ABG Total CO2 30.3 H, ABG O2 Saturation 72 L*, ABG Base Excess 2.3, Nhan Test Unable, Vent Rate 28, Tidal Volume 475, PEEP 22 I & O for Last 24 hours: Intake & Output 11/20/20 11/21/20 11/22/20 11/23/20 11:59 11:59 11:59 11:59 Intake Total 2963.985 / 2963.985 4875.093 / 4875.093 4158.190 / 4158.190 4436.228 / 4436.228 Output Total 300 / 300 687 / 937 1140 / 1140 3135 / 3135 Balance 2663.985 / 2663.985 4188.093 / 3938.093 3018.190 / 3018.190 1301.228 / 1301.228 Weight 273 lb 278 lb 8 oz 278 lb 0.046 oz 291 lb
--- NOTE | 2020-11-23 14:22 | XR_ITS ---
PROCEDURE: XR CHEST PORTABLE CLINICAL HISTORY: central line placement COMPARISON: CR XR CHEST PORTABLE from 11/21/[address] CHEST WO CON from 11/21/2020 CR XR CHEST PORTABLE from 11/22/2020 CR XR CHEST PORTABLE from 11/23/2020 FINDINGS: Right subclavian central venous line has been inserted. The tip is in good position in the region of the superior vena cava. There is no evidence of pneumothorax. Endotracheal tube tip is in good position 4.6 cm above the enid. Nasogastric tube tip is not visible but is below the GE junction. Diffuse bilateral airspace disease once again noted left greater than right not significantly changed considering difference in technique. There may be some residual pneumomediastinum in the right hilar area. No acute bony abnormalities. IMPRESSION: New right subclavian central venous line with the tip in good position in the region of the superior vena cava.. Endotracheal tube and nasogastric tube in good position No change diffuse bilateral airspace disease Dictated by: Nhan Sadler MD 11/23/2020 15:04 Nhan Sadler MD in OV 11/23/2020 15:04
--- NOTE | 2020-11-23 14:34 | HMH.OPNOTE ---
Date of procedure: 11/23/20 Pre-op Diagnosis:: Need for central venous access Post-op Diagnosis:: Same Procedure performed:: Placement of nontunneled 7 Persian triple-lumen and right subclavian vein Surgeon:: En Gerardo MD Anesthesia: local Estimated blood loss (mL): 20 Clinical Note:: Patient is a 55-year-old female from [place] with a BMI of 50 with poorly controlled diabetes on multiple medications who had been diagnosed with Covid on approximately 11/10/2020. She had presented to the emergency department with increasing shortness of air and was admitted on 11/18/2020. She was placed on BiPAP and managed medically for her Covid. However, she had respiratory deterioration and was shortly thereafter intubated. She was placed on very high PEEP for adequate oxygenation. She has been on pressors to maintain blood pressure. She has shown worsening renal failure. She has pancreatitis radiographically and by laboratory evaluation. She has been noted to have pneumomediastinum with dissection to the soft tissues in the abdomen. She has remained on high-dose pressors to maintain blood pressure. Prognosis is dismal. Surgical consultation was obtained for central line placement. Operative findings:: Difficult anatomy Operative note:: Patient was positioned in Trendelenburg position. Attention was first turned to the left side. Left neck and chest were prepped and draped in the standard surgical fashion. Local anesthetic was infiltrated inferior to the left clavicle. Due to the patient's body habitus and identification of landmarks was rather difficult. Several passes were made of the needle medial to the deltopectoral groove in an attempt to cannulate the left subclavian vein. Ultimately there was return of blood but this was shown to be pulsatile consistent with cannulation of the left subclavian artery. Pressure was held for several minutes as much this could feasibly be done to ensure hemostasis. Several additional passes of catheter resulted in no return. Therefore attention was turned to attempt at placement on the right side. Patient's right side was prepped and draped in the standard surgical fashion. Local anesthetic was infiltrated inferior to the right clavicle. Needle was inserted near the deltopectoral groove. With difficulty the needle was manipulated posterior to the clavicle. There was some return of venous blood. However, the guidewire could not be threaded. Repositioning of the needle was unsuccessful. Needle was removed and flushed. With several additional passes of the needle ultimately the right subclavian vein was cannulated. At this point the guidewire was able to be threaded. Small incision was made at the guidewire insertion site. Subcutaneous tissues were dilated. 7 Persian triple-lumen catheter was threaded over the guidewire using Seldinger technique. It was secured to the skin at approximately the 17 cm brandin. All ports aspirated and flushed without difficulty. Clean dry sterile dressing was applied. Chest x-ray pending at the time of this dictation. Condition: critical Disposition: no change Complications:: None immediately apparent
[2020-11-23 22:17] LABS: POC Glucose,Bedside 90 (70-110)
[2020-11-23 22:17] LABS: POC Glucose,Bedside 111 (70-110)
[2020-11-23 22:17] LABS: POC Glucose,Bedside 70 (70-110)
[2020-11-23 22:17] LABS: POC Glucose,Bedside 52 (70-110)
[2020-11-23 22:17] LABS: POC Glucose,Bedside 122 (70-110)
--- NOTE | 2020-11-23 23:52 | XR_ITS ---
PROCEDURE INFORMATION: Exam: XR Chest Exam date and time: 11/23/2020 11:52 PM Age: 55 years old Clinical indication: Condition or disease; Lung condition and disease; Pneumonia and other: Covid; Patient HX: Decreasing o2 sats; Additional info: Low o2 sats TECHNIQUE: Imaging protocol: XR of the chest. Views: 1 view. COMPARISON: CR XR CHEST PORTABLE 11/23/2020 2:29 PM FINDINGS: Tubes, catheters and devices: Endotracheal tube noted with the tip above the enid approximately 4.5 cm. A right subclavian central venous catheter is present, with its tip overlying the region of the superior vena cava. The endogastric tube is noted with distal portion faintly visualized overlying the stomach. Multiple overlying cardiac leads are present. Lungs: There is increasing and more confluent opacity involving the entire left lung. Similar to slightly improved diffuse opacities in the right lung with better delineation of the hemidiaphragm. Pleural spaces: Unremarkable. No pleural effusion. No pneumothorax. Heart/Mediastinum: Heart borders are obscured by lung opacities. Bones/joints: Unremarkable. IMPRESSION: 1. Diffuse bilateral airspace opacities with worsening in the left lung and slight improvement at the right base. 2. Support catheters noted, as above. No pneumothorax.
[2020-11-24] VITALS (28 sets, daily range): BP systolic 94–148; BP diastolic 47–70; PULSE 80–119; RESP 26–31; TEMP 37.3–38.6; O2SAT 81–98; BMI 53.4
[2020-11-24 00:41] LABS: POC Glucose,Bedside 59 (70-110)
[2020-11-24 01:59] LABS: POC Glucose,Bedside 82 (70-110)
[2020-11-24 03:53] LABS: POC Glucose,Bedside 70 (70-110)
--- NOTE | 2020-11-24 05:08 | PC.NURSE ---
Addendum entered by Amanda Sherwood RN 11/24/20 07:10: versed @0.2 mg/kg/hr Original Note: Pt o2 sats declined multiple times this shift. RT bagged pt multiple times. Pt was noted to be over breathing vent. Pt was administered fentanyl bolus 12.5 mg x3. Calin was notified. New orders received. Give pt Rocuronium [place] 50 mg IV once. Order CXR. ER MD notified for administration of medication. VSS at this time. Vent settings are as follows: FiO2 100%, 26, TV 440, Peep 26. Levophed infusing @ 24 mcg. Versed @ 0.2 mcg. Fentanyl @ 250 mcg. Insulin @ 6.6 u/hr. Bicarb in D5 1/2 NS @ 150 ml/hr. F/C draining to bedside. WIll continue to monitor.
[2020-11-24 05:23] LABS: Basophils # 0.1 K/mm3 (0-0.2); Basophils % 0.6 % (0.1-2.0); Hematocrit 39.6 % (37.0-47.0); Hemoglobin 12.7 g/dL (12.2-16.2); Lymphocytes # 0.7 K/mm3 (0.7-4.5); Mean Corpuscular HGB Conc 32.1 g/dL (31.8-35.4); Mean Corpuscular Hemoglobin 31.2 pg (27.0-31.2); Mean Corpuscular Volume 97.2 fl (81-99); Mean Platelet Volume 9.9 fl (7.4-10.4); Monocytes # 0.3 K/mm3 (0.1-1.0); Monocytes % 1.5 % (1.7-9.3); Neutrophils # 20.5 K/mm3 (1.8-7.8); Neutrophils % 94.9 % (37.0-80.0); Platelet Count 275 K/mm3 (142-424); Red Blood Count 4.07 M/mm3 (4.20-5.40); Red Cell Distribution Width 14.9 % (11.5-17.5); White Blood Count 21.6 K/mm3 (4.8-10.8)
[2020-11-24 05:24] LABS: MANUAL DIFFERENTIAL MANUAL DIFFERENTIAL (MANUAL DIFF)
[2020-11-24 05:26] LABS: Chloride 115 mmol/L (98-107); Potassium 3.5 mmoL/L (3.5-5.1)
[2020-11-24 05:29] LABS: Anion Gap 11.5 mEq/L (5-15); Calcium 6.6 mg/dl (8.4-10.2); Carbon Dioxide 36 mmol/L (22.0-30.0); Creatinine Clearance Estimated 22 mL/min (50-200); Estimated Glomerular Filt Rate 23 ml/min (>60); GFR (African American) 28 ML/MIN (>60); Glucose 60 mg/dl (74-100)
[2020-11-24 05:34] LABS: Blood Urea Nitrogen 95 mg/dl (7-17); Sodium 159 mmol/L (136-145)
--- NOTE | 2020-11-24 05:47 | PC.NURSE ---
MD Albert notified about lab values.
[2020-11-24 06:25] LABS: Hypochromasia 1+; Lymphocytes % 2 % (10-50); Microcytosis 1+; Neutrophils % 98 % (42-76); Nucleated Red Blood Cells 1; Platelet Estimate Normal; Total Cells Counted 100
[2020-11-24 06:52] LABS: Glucose,Random 158 mg/dL (74-100)
[2020-11-24 07:05] LABS: ABG Base Excess 7.8 mmol/L (-2.4-2.3); ABG Oxygen Saturation 89 % (90-100); ABG PCO2 48.9 mmhg (35.0-45.0); ABG PH 7.43 mmol/L (7.35-7.45); ABG PO2 52.8 mmhg (80-100); ABG TCO2 33.5 mmhg (23-27)
[2020-11-24 07:16] LABS: Allen's Test ACCEPTABLE; Oxygen 100 %; PEEP 26; Source L RADIAL; Tidal Volume 440; Vent Rate 26
[2020-11-24 08:29] LABS: POC Glucose,Bedside 50 (70-110)
--- NOTE | 2020-11-24 08:42 | HMH.ACPN2 ---
Internal Medicine - PN: Zoë *Date: 11/24/20 *Time: 08:42 Interval history: Patient is still intubated and sedated. Her pH has improved but her white count has continued to elevate. Her sodium is 159 today and her renal functions are still elevated. Glucose is also low. Exam Vital signs and Labs for Last 24 Hours: Temp Pulse Resp BP Pulse Ox 101.2 F H 96 H 26 H 130/70 91 L 11/24/20 06:53 11/24/20 06:53 11/24/20 06:53 11/24/20 06:53 11/24/20 06:53 Laboratory Results - last 24 hr 11/23/20 02:05: POC Glucose 111 H 11/23/20 04:08: POC Glucose 70 11/23/20 06:05: POC Glucose 52 L 11/23/20 14:44: POC Glucose 122 H 11/23/20 22:11: POC Glucose 90 11/24/20 00:34: POC Glucose 59 L 11/24/20 01:52: POC Glucose 82 11/24/20 03:46: POC Glucose 70 11/24/20 04:40: WBC 21.6 H*, RBC 4.07 L, Hgb 12.7, Hct 39.6, MCV 97.2, MCH 31.2, MCHC 32.1, RDW 14.9, Plt Count 275, MPV 9.9, Neut % (Auto) 94.9 H, Lymph % (Auto) 3.0 L, [place] % (Auto) 1.5 L, Eos % (Auto) 0.0 L, Baso % (Auto) 0.6, Neut # (Auto) 20.5 H, Lymph # (Auto) 0.7, [place] # (Auto) 0.3, Eos # (Auto) 0.0, Baso # (Auto) 0.1, Total Counted 100, Neutrophils % (Manual) 98 H, Lymphocytes % (Manual) 2 L, Nucleated RBCs 1, Platelet Estimate Normal, Hypochromasia 1+, Microcytosis 1+ 11/24/20 04:40: Sodium 159 H*, Potassium 3.5, Chloride 115 H, Carbon Dioxide 36 H, Anion Gap 11.5, BUN 95 H, Creatinine 2.20 H, Estimated Creat Clear 22, Estimated GFR 23 L, Est GFR ( Amer) 28 L D, Glucose 60 L, Calcium 6.6 L 11/24/20 06:00: ABG Lactate 5.0 H 11/24/20 06:10: Random Glucose 158 H 11/24/20 06:44: Specimen Source L radial, O2 % 100, ABG pH 7.43, ABG pCO2 48.9 H, ABG pO2 52.8 L, ABG HCO3 32.0 H, ABG Total CO2 33.5 H, ABG O2 Saturation 89 L, ABG Base Excess 7.8 H, Nhan Test Acceptable, Vent Rate 26, Tidal Volume 440, PEEP 26 11/24/20 08:22: POC Glucose 50 L I & O for Last 24 hours: Intake & Output 11/21/20 11/22/20 11/23/20 11/24/20 11:59 11:59 11:59 11:59 Intake Total 4875.093 / 4875.093 4158.190 / 4158.190 4463.125 / 4463.125 5256.073 / 5256.073 Output Total 687 / 937 1140 / 1140 3375 / 3407 1897 / 1897 Balance 4188.093 / 3938.093 3018.190 / 3018.190 1088.125 / 7277.198 1408.073 / 3359.073 Weight 278 lb 8 oz 278 lb 0.046 oz 291 lb 301 lb 6 oz - Constitutional obtunded - *Routine Respiratory Exam Present: patient mechanically ventilated - *Routine Cardiovascular Exam Present: RRR - *Routine Abdominal Exam Present: soft, normoactive bowel sounds, distended. Absent: tenderness - *Routine Extremities Exam Present: edema (Edema is present on the arms and legs). Absent: cyanosis, clubbing - *Routine Skin Exam Present: warm. Absent: rash - *Routine Neurological Exam Sedated Assessment and Plan (1) Respiratory failure Status: Acute Qualifiers: Chronicity: acute Respiratory failure complication: hypoxia Qualified Code(s): J96.01 - Acute respiratory failure with hypoxia Category: Medical Code(s): J96.90 - Respiratory failure, unspecified, unspecified whether with hypoxia or hypercapnia (2) Bilateral pneumonia Status: Acute Category: Medical Code(s): J18.9 - Pneumonia, unspecified organism (3) COVID-19 Status: Acute Category: Medical Code(s): U07.1 - COVID-19 (4) Diabetes mellitus type 2 in obese Status: Chronic Category: Medical Code(s): E11.69 - Type 2 diabetes mellitus with other specified complication; E66.9 - Obesity, unspecified (5) Obesity Status: Chronic Category: Medical Code(s): E66.9 - Obesity, unspecified (6) Degenerative disc disease Status: Chronic Qualifiers: Spinal region: lumbar Qualified Code(s): M51.36 - Other intervertebral disc degeneration, lumbar region Category: Medical (7) HTN (hypertension) Status: Chronic Category: Medical Code(s): I10 - Essential (primary) hypertension (8) Lumbar radiculopathy Status: Chronic Category: Medical Code(s): M54.16 - Radiculopathy, lumba
--- NOTE | 2020-11-24 10:00 | HMH.ACPN2 ---
Internal Medicine - PN: Subj *Date: 11/24/20 *Time: 10:00 Exam Vital signs and Labs for Last 24 Hours: Temp Pulse Resp BP Pulse Ox 101.2 F H 96 H 26 H 130/70 91 L 11/24/20 06:53 11/24/20 06:53 11/24/20 06:53 11/24/20 06:53 11/24/20 06:53 Laboratory Results - last 24 hr 11/23/20 02:05: POC Glucose 111 H 11/23/20 04:08: POC Glucose 70 11/23/20 06:05: POC Glucose 52 L 11/23/20 14:44: POC Glucose 122 H 11/23/20 22:11: POC Glucose 90 11/24/20 00:34: POC Glucose 59 L 11/24/20 01:52: POC Glucose 82 11/24/20 03:46: POC Glucose 70 11/24/20 04:40: WBC 21.6 H*, RBC 4.07 L, Hgb 12.7, Hct 39.6, MCV 97.2, MCH 31.2, MCHC 32.1, RDW 14.9, Plt Count 275, MPV 9.9, Neut % (Auto) 94.9 H, Lymph % (Auto) 3.0 L, [place] % (Auto) 1.5 L, Eos % (Auto) 0.0 L, Baso % (Auto) 0.6, Neut # (Auto) 20.5 H, Lymph # (Auto) 0.7, [place] # (Auto) 0.3, Eos # (Auto) 0.0, Baso # (Auto) 0.1, Total Counted 100, Neutrophils % (Manual) 98 H, Lymphocytes % (Manual) 2 L, Nucleated RBCs 1, Platelet Estimate Normal, Hypochromasia 1+, Microcytosis 1+ 11/24/20 04:40: Sodium 159 H*, Potassium 3.5, Chloride 115 H, Carbon Dioxide 36 H, Anion Gap 11.5, BUN 95 H, Creatinine 2.20 H, Estimated Creat Clear 22, Estimated GFR 23 L, Est GFR ( Amer) 28 L D, Glucose 60 L, Calcium 6.6 L 11/24/20 06:00: ABG Lactate 5.0 H 11/24/20 06:10: Random Glucose 158 H 11/24/20 06:44: Specimen Source L radial, O2 % 100, ABG pH 7.43, ABG pCO2 48.9 H, ABG pO2 52.8 L, ABG HCO3 32.0 H, ABG Total CO2 33.5 H, ABG O2 Saturation 89 L, ABG Base Excess 7.8 H, Nhan Test Acceptable, Vent Rate 26, Tidal Volume 440, PEEP 26 11/24/20 08:22: POC Glucose 50 L I & O for Last 24 hours: Intake & Output 11/21/20 11/22/20 11/23/20 11/24/20 23:59 23:59 23:59 23:59 Intake Total 3801.428 / 3801.428 4178.439 / 5327.439 6062.687 / 6671.687 1529.761 / 1529.761 Output Total 892 / 992 2395 / 2470 1842 / 2317 1480 / 1480 Balance 2909.428 / 2809.428 1783.439 / 2857.439 4220.687 / 4354.687 49.761 / 49.761 Weight 127.119 kg 126.1 kg 131.995 kg 136.701 kg Assessment and Plan (1) Respiratory failure Status: Acute Qualifiers: Chronicity: acute Respiratory failure complication: hypoxia Qualified Code(s): J96.01 - Acute respiratory failure with hypoxia Category: Medical Code(s): J96.90 - Respiratory failure, unspecified, unspecified whether with hypoxia or hypercapnia (2) Bilateral pneumonia Status: Acute Category: Medical Code(s): J18.9 - Pneumonia, unspecified organism (3) COVID-19 Status: Acute Category: Medical Code(s): U07.1 - COVID-19 (4) Diabetes mellitus type 2 in obese Status: Chronic Category: Medical Code(s): E11.69 - Type 2 diabetes mellitus with other specified complication; E66.9 - Obesity, unspecified (5) Obesity Status: Chronic Category: Medical Code(s): E66.9 - Obesity, unspecified (6) Degenerative disc disease Status: Chronic Qualifiers: Spinal region: lumbar Qualified Code(s): M51.36 - Other intervertebral disc degeneration, lumbar region Category: Medical (7) HTN (hypertension) Status: Chronic Category: Medical Code(s): I10 - Essential (primary) hypertension (8) Lumbar radiculopathy Status: Chronic Category: Medical Code(s): M54.16 - Radiculopathy, lumbar region (9) Compression fracture Status: Acute Category: Medical (10) Anxiety Status: Chronic Category: Medical Code(s): F41.9 - Anxiety disorder, unspecified (11) Depression Status: Chronic Category: Medical Code(s): F32.9 - Major depressive disorder, single episode, unspecified (12) Renal failure Status: Deleted Category: Medical Code(s): N19 - Unspecified kidney failure The patient's infection will respond to the chosen ABx?: Yes (COVID PNA) Is the patient receiving the right drug, dose, and route?: Yes Could a more targeted ABx be ordered?: No
[2020-11-24 10:46] LABS: POC Glucose,Bedside 58 (70-110)
[2020-11-24 11:23] LABS: Reflex Lactic Add Lactic Reflex
--- NOTE | 2020-11-24 13:09 | DIET.NUTRFU ---
TFs held again dt increased lipase. Pt is day 8 NPO. Recommend retaking lipase and initiating enteral nutrition if wnl, if still elevated recommend TPN. She is receiving IVF with D5. Weight is up 10#, pt diurese and fluids were altered. Renal function slightly improved, Na increased. Pt has had some episodes of hypoglycemia. She has not had a BM t/o stay.
[2020-11-24 15:01] LABS: POC Glucose,Bedside 62 (70-110)
--- NOTE | 2020-11-24 16:22 | HMH.PULMPN ---
Internal Medicine - PN: Subj *Date: 11/24/20 *Time: 16:22 Interval history: No acute respiratory events overnight, Except for patient noted episode that needed paralytic administration manual bagging. Exam - Constitutional Constitutional:: Present: comfortable - HENMT Exam HENMT: Present: normocephalic, moist mucous membranes - Eye Exam Eyes:: Present: normal appearance both eyes and related structures - Respiratory Exam Respiratory:: Present: normal breath sounds, respiratory distress, rales - Cardiovascular Exam Cardiac:: Present: S1, S2 - GI Exam GI:: Present: soft, distended, rigid - Skin Exam Skin: Present: warm - Neurological Exam Neurological: Absent: alert, awake, normal cognition - Extremities Exam Extremities: Present: edema Assessment and Plan (1) Respiratory failure Status: Acute Qualifiers: Chronicity: acute Respiratory failure complication: hypoxia Qualified Code(s): J96.01 - Acute respiratory failure with hypoxia Category: Medical Code(s): J96.90 - Respiratory failure, unspecified, unspecified whether with hypoxia or hypercapnia (2) Bilateral pneumonia Status: Acute Category: Medical Code(s): J18.9 - Pneumonia, unspecified organism (3) COVID-19 Status: Acute Category: Medical Code(s): U07.1 - COVID-19 (4) Diabetes mellitus type 2 in obese Status: Chronic Category: Medical Code(s): E11.69 - Type 2 diabetes mellitus with other specified complication; E66.9 - Obesity, unspecified (5) Obesity Status: Chronic Category: Medical Code(s): E66.9 - Obesity, unspecified (6) Degenerative disc disease Status: Chronic Qualifiers: Spinal region: lumbar Qualified Code(s): M51.36 - Other intervertebral disc degeneration, lumbar region Category: Medical (7) HTN (hypertension) Status: Chronic Category: Medical Code(s): I10 - Essential (primary) hypertension (8) Lumbar radiculopathy Status: Chronic Category: Medical Code(s): M54.16 - Radiculopathy, lumbar region (9) Compression fracture Status: Acute Category: Medical (10) Anxiety Status: Chronic Category: Medical Code(s): F41.9 - Anxiety disorder, unspecified (11) Depression Status: Chronic Category: Medical Code(s): F32.9 - Major depressive disorder, single episode, unspecified (12) Renal failure Status: Deleted Category: Medical Code(s): N19 - Unspecified kidney failure - Assessment and plan all Dx Assessment and Plan for all problems:: #Acute on chronic respiratory failure: #COVID-19 pneumonia: 55-year-old vaccinated, recent diagnosed with COVID-19 pneumonia presented to the hospital worsening respiratory status ventilator intubation and mechanical ventilator support and pulmonary was called for further management. Chest x-ray on admission predominant left-sided pulmonary infiltrate. CT chest without contrast from admission bilateral diffuse patchy pulmonary infiltrates. Worsening leukocytosis. Assessment: - Continue mechanical ventilatory support - Continue AnalgoSedation with versed and Fentanyl with CPOT gal less than or euqal to 2 and RASS goal of 0 to 1 (Deep sedation) - VAP bundle Elevate head of the bed at 30 to 45 degrees Oral care with chlorhexidne GI ulcer prophylaxis - Famotidine 20mg IV BID Chemical DVT prophylaxis Continue mechanical ventilatory support. ABG from this morning continued to show metabolic acidosis along with worsening respiratory acidosis from yesterday. PaO2 at 39.1, vent setting changes and oxygenation improved. We will closely monitor. Patient current antibiotics include levofloxacin and Azotrenam. Nasal MRSA PCR negative sputum normal respiratory masood. Blood cultures no growth so far. We will continue remdesivir and dexamethasone for possible COVID-19 pneumonia even though the possibility of positive test can be a false positive result. CRP elevated at 132. D-Dimer elevated at 3.29. Lower extr
[2020-11-24 16:29] LABS: POC Glucose,Bedside 63 (70-110)
[2020-11-24 18:11] LABS: POC Glucose,Bedside 65 (70-110)
[2020-11-24 21:07] LABS: POC Glucose,Bedside 59 (70-110)
--- NOTE | 2020-11-24 22:48 | PC.NURSE ---
Calin paged x2. Awaiting page. MD Bliss paged and spoke with him about pt overbreathing the vent. O2 sats declining in 70s. Pt has had to be bagged. Pt has been Tachycardic. New orders received. Change rate to 30. RT made aware.
[2020-11-24 23:12] LABS: POC Glucose,Bedside 78 (70-110)
[2020-11-25] VITALS (30 sets, daily range): BP systolic 106–149; BP diastolic 47–68; PULSE 68–104; RESP 30–34; TEMP 36.3–37.9; O2SAT 82–95; BMI 54.7
[2020-11-25 01:01] LABS: POC Glucose,Bedside 60 (70-110)
[2020-11-25 01:59] LABS: POC Glucose,Bedside 56 (70-110)
--- NOTE | 2020-11-25 06:00 | XR_ITS ---
PROCEDURE INFORMATION: Exam: XR Chest Exam date and time: 11/25/2020 6:00 AM Age: 55 years old Clinical indication: Patient HX: Covid unit patient icu- intubation check TECHNIQUE: Imaging protocol: XR of the chest. Views: 1 view. COMPARISON: CR XR CHEST PORTABLE 11/24/2020 1:32 AM FINDINGS: Tubes, catheters and devices: There is an endotracheal tube in place, the tip which projects 4.3 cm above the enid. There is a right subclavian central venous catheter in place, the tip which projects over the SVC. There is a nasogastric tube traverses the esophagus with tip below the bottom of the radiograph. Lungs: Diffuse airspace and interstitial opacities noted in both lungs. Pleural spaces: Unremarkable. No pleural effusion. No pneumothorax. Heart/Mediastinum: Unremarkable. No cardiomegaly. Bones/joints: Unremarkable. IMPRESSION: 1. No significant change in multifocal pneumonia. 2. Satisfactory position of endotracheal tube, the tip which projects 4.3 cm above the enid.
[2020-11-25 06:05] LABS: POC Glucose,Bedside 56 (70-110)
[2020-11-25 07:18] LABS: ABG Base Excess 12.8 mmol/L (-2.4-2.3); ABG HCO3 37.1 mmhg (22.0-26.0); ABG Oxygen Saturation 88 % (90-100); ABG PH 7.43 mmol/L (7.35-7.45); ABG PO2 52.5 mmhg (80-100); ABG TCO2 38.8 mmhg (23-27)
[2020-11-25 07:29] LABS: ABG PCO2 56.9 mmhg (35.0-45.0)
[2020-11-25 07:45] LABS: Lactate Arterial 5.7 mmol/L (0.4-2.0)
[2020-11-25 07:47] LABS: Basophils # 0.1 K/mm3 (0-0.2); Basophils % 0.4 % (0.1-2.0); Hematocrit 35.4 % (37.0-47.0); Hemoglobin 11.1 g/dL (12.2-16.2); Lymphocytes # 0.6 K/mm3 (0.7-4.5); Lymphocytes % 3.2 % (10-50); Mean Corpuscular HGB Conc 31.3 g/dL (31.8-35.4); Mean Corpuscular Hemoglobin 31.6 pg (27.0-31.2); Mean Corpuscular Volume 101.1 fl (81-99); Mean Platelet Volume 10.3 fl (7.4-10.4); Monocytes # 0.3 K/mm3 (0.1-1.0); Monocytes % 1.6 % (1.7-9.3); Neutrophils % 94.8 % (37.0-80.0); Platelet Count 197 K/mm3 (142-424); Red Cell Distribution Width 14.6 % (11.5-17.5); White Blood Count 17.9 K/mm3 (4.8-10.8)
[2020-11-25 07:50] LABS: MANUAL DIFFERENTIAL MANUAL DIFFERENTIAL (MANUAL DIFF)
[2020-11-25 08:06] LABS: Anisocytosis 1+; Lymphocytes % 3 % (10-50); Macrocytosis 1+; Monocytes % 1 % (2-9); Neutrophils % 96 % (42-76); Platelet Estimate Normal; Total Cells Counted 100
[2020-11-25 09:03] LABS: Blood Urea Nitrogen 79 mg/dl (7-17); Calcium 6.3 mg/dl (8.4-10.2); Chloride 116 mmol/L (98-107); Creatinine Clearance Estimated 33 mL/min (50-200); Estimated Glomerular Filt Rate 36 ml/min (>60); GFR (African American) 43 ML/MIN (>60); Glucose 197 mg/dl (74-100)
[2020-11-25 09:11] LABS: Carbon Dioxide 38 mmol/L (22.0-30.0)
[2020-11-25 09:14] LABS: Sodium 162 mmol/L (136-145)
[2020-11-25 09:48] LABS: POC Glucose,Bedside 68 (70-110)
--- NOTE | 2020-11-25 10:18 | HMH.ACPN2 ---
Internal Medicine - PN: Subj *Date: 11/25/20 *Time: 10:18 Interval history: I spent approximately 40 minutes this morning speaking with the patient's Sister Jes and her niece Carmencita. They are, of course, concerned with Rachel's long-term outcome. Both Dr. Castellano and I have tried to give them an accurate reflection of the patient's current status as well as long-range concerns. I certainly do not feel that they are at a decision-making point at this time, in terms of withdrawing care. The patient has shown some incremental progress. Her chest x-ray shows extensive involvement of the left lung with some improvement in the right lung. Her most recent blood gas shows normal pH with 50-50 balance of the PCO2 persist PO2. Oxygen saturations are in the 88-95 range. Her ventilator rate has been increased to 30 due to overbreathing. Her tidal volume is 440. FiO2 remains at 100%. Renal functions have improved Laboratory Tests 11/25/20 06:15 BUN 79 H Creatinine 1.50 H D She remains on Levophed at this point but it is being decreased. Blood pressure seems to be more stable. She has had huge weight gain from fluid retention despite Lasix 40 mg IV twice daily and decreasing the IV fluid rate. She is hypernatremic and Dr. Mayorga he is going to address this by decreasing her sodium bicarb. I have directed her IV fluids to be changed to D5 half-normal saline with 20 mEq of potassium. She is still currently at 100 cc an hour. The white blood cell count has come down slightly, but she remains on steroids though this has been adjusted also by pulmonology. See orders. Antibiotics have also been adjusted. Exam Vital signs and Labs for Last 24 Hours: Temp Pulse Resp BP Pulse Ox 97.3 F L 104 H 30 H 120/60 82 L 11/25/20 07:00 11/25/20 07:00 11/25/20 07:00 11/25/20 07:00 11/25/20 07:00 Laboratory Results - last 24 hr 11/24/20 10:38: POC Glucose 58 L 11/24/20 14:54: POC Glucose 62 L 11/24/20 16:21: POC Glucose 63 L 11/24/20 18:05: POC Glucose 65 L 11/24/20 20:47: POC Glucose 59 L 11/24/20 23:01: POC Glucose 78 11/25/20 00:53: POC Glucose 60 L 11/25/20 01:53: POC Glucose 56 L 11/25/20 05:58: POC Glucose 56 L 11/25/20 06:00: ABG Lactate 5.7 H 11/25/20 06:00: ABG pH 7.43, ABG pCO2 56.9 H, ABG pO2 52.5 L, ABG HCO3 37.1 H, ABG Total CO2 38.8 H, ABG O2 Saturation 88 L, ABG Base Excess 12.8 H 11/25/20 06:15: WBC 17.9 H, RBC 3.50 L, Hgb 11.1 L, Hct 35.4 L, MCV 101.1 H, MCH 31.6 H, MCHC 31.3 L, RDW 14.6, Plt Count 197 D, MPV 10.3, Neut % (Auto) 94.8 H, Lymph % (Auto) 3.2 L, [place] % (Auto) 1.6 L, Eos % (Auto) 0.0 L, Baso % (Auto) 0.4, Neut # (Auto) 17.0 H, Lymph # (Auto) 0.6 L, [place] # (Auto) 0.3, Eos # (Auto) 0.0, Baso # (Auto) 0.1, Total Counted 100, Neutrophils % (Manual) 96 H, Lymphocytes % (Manual) 3 L, Monocytes % (Manual) 1 L, Platelet Estimate Normal, Anisocytosis 1+, Macrocytosis 1+ 11/25/20 06:15: Sodium 162 H*, Potassium 3.0 L, Chloride 116 H, Carbon Dioxide 38 H, Anion Gap 11.0, BUN 79 H, Creatinine 1.50 H D, Estimated Creat Clear 33, Estimated GFR 36 L, Est GFR ( Amer) 43 L D, Glucose 197 H, Calcium 6.3 L 11/25/20 09:38: POC Glucose 68 L I & O for Last 24 hours: Intake & Output 11/22/20 11/23/20 11/24/20 11/25/20 11:59 11:59 11:59 11:59 Intake Total 4158.190 / 4158.190 4463.125 / 4463.125 5500.389 / 5500.389 3243.419 / 3243.419 Output Total 1140 / 1140 3375 / 3407 2392 / 3042 3920 / 3920 Balance 3018.190 / 3018.190 1088.125 / 9415.697 5815.389 / 2458.389 -676.581 / -676.581 Weight 278 lb 0.046 oz 291 lb 301 lb 6 oz 309 lb - Constitutional no acute distress (Remains on ventilator status. She can occasionally move about, requiring additional sedation) - *Routine HEENT Exam Head: Present: normocephalic Eye: Present: EOMI, PERRL ENT: Present: mucous membranes moist (T-tube) - *Routine Neck Exam Absent: JVD (No crepitus) - Routine Chest/Breast/Axilla Exam Chest wall: Absent: tenderness (No crepitus)
[2020-11-25 11:17] LABS: POC Glucose,Bedside 105 (70-110)
[2020-11-25 11:46] LABS: Reflex Lactic Add Lactic Reflex
[2020-11-25 12:51] LABS: Lactate Arterial 2.6 mmol/L (0.4-2.0)
[2020-11-25 13:02] LABS: Lactate Arterial 3.1 mmol/L (0.4-2.0)
[2020-11-25 13:15] LABS: POC Glucose,Bedside 74 (70-110)
[2020-11-25 14:32] LABS: Chol/HDL Ratio 6.8 (1-3.5); Cholesterol 115 mg/dl (140-200); HDL Cholesterol 17 mg/dl (40-60); Triglycerides 247 mg/dl (30-150); VLDL Cholesterol 49 mg/dL (0-40)
[2020-11-25 15:26] LABS: POC Glucose,Bedside 89 (70-110)
[2020-11-25 17:44] LABS: POC Glucose,Bedside 74 (70-110)
[2020-11-25 18:51] LABS: POC Glucose,Bedside 97 (70-110)
[2020-11-25 20:16] LABS: POC Glucose,Bedside 73 (70-110)
[2020-11-25 22:12] LABS: POC Glucose,Bedside 55 (70-110)
[2020-11-26] VITALS (30 sets, daily range): BP systolic 97–133; BP diastolic 42–67; PULSE 0–112; RESP 28–34; TEMP 36.1–37.1; O2SAT 72–100; BMI 54.8
[2020-11-26 00:11] LABS: POC Glucose,Bedside 65 (70-110)
--- NOTE | 2020-11-26 03:42 | PC.NURSE ---
Pt agitated and had to be bagged. MD Castellano paged. Dilaudid increased to 2.5 ml.
--- NOTE | 2020-11-26 06:00 | XR_ITS ---
PROCEDURE INFORMATION: Exam: XR Chest Exam date and time: 11/26/2020 6:00 AM Age: 55 years old Clinical indication: Other: Covid; Additional info: Intubation TECHNIQUE: Imaging protocol: XR of the chest. Views: 1 view. COMPARISON: CR XR CHEST PORTABLE 11/25/2020 6:16 AM FINDINGS: Tubes, catheters and devices: Stable support tubes and catheter. Lungs: Stable diffuse left and mid lower right lung infiltrates. Pleural spaces: No definite pleural fluid. Heart/Mediastinum: Unremarkable. No cardiomegaly. Bones/joints: Unremarkable. IMPRESSION: Essentially stable appearance compared to exam from the previous day, with findings above.
[2020-11-26 06:17] LABS: Basophils % 0.2 % (0.1-2.0); Hematocrit 35.5 % (37.0-47.0); Hemoglobin 10.7 g/dL (12.2-16.2); Lymphocytes # 0.5 K/mm3 (0.7-4.5); Lymphocytes % 2.5 % (10-50); Mean Corpuscular Hemoglobin 31.1 pg (27.0-31.2); Mean Corpuscular Volume 103.5 fl (81-99); Mean Platelet Volume 10.2 fl (7.4-10.4); Monocytes # 0.3 K/mm3 (0.1-1.0); Monocytes % 1.5 % (1.7-9.3); Neutrophils # 19.3 K/mm3 (1.8-7.8); Neutrophils % 95.8 % (37.0-80.0); Platelet Count 184 K/mm3 (142-424); Red Blood Count 3.43 M/mm3 (4.20-5.40); Red Cell Distribution Width 14.6 % (11.5-17.5)
[2020-11-26 06:19] LABS: MANUAL DIFFERENTIAL MANUAL DIFFERENTIAL (MANUAL DIFF); White Blood Count 20.1 K/mm3 (4.8-10.8)
[2020-11-26 06:42] LABS: Chloride 115 mmol/L (98-107)
[2020-11-26 06:45] LABS: Blood Urea Nitrogen 68 mg/dl (7-17); Calcium 6.4 mg/dl (8.4-10.2); Creatinine Clearance Estimated 41 mL/min (50-200); Estimated Glomerular Filt Rate 46 ml/min (>60); GFR (African American) 56 ML/MIN (>60); Glucose 73 mg/dl (74-100)
[2020-11-26 07:07] LABS: Anion Gap 8.7 mEq/L (5-15); Carbon Dioxide 45 mmol/L (22.0-30.0)
[2020-11-26 07:10] LABS: Potassium 2.7 mmoL/L (3.5-5.1); Sodium 166 mmol/L (136-145)
[2020-11-26 07:14] LABS: Hypochromasia 2+; Lymphocytes % 5 % (10-50); Macrocytosis 2+; Neutrophils % 86 % (42-76); Platelet Estimate Normal; Total Cells Counted 100
[2020-11-26 07:18] LABS: ABG Base Excess 16.2 mmol/L (-2.4-2.3); ABG Oxygen Saturation 86 % (90-100); ABG PCO2 48.9 mmhg (35.0-45.0); ABG PH 7.52 mmol/L (7.35-7.45); ABG TCO2 40.5 mmhg (23-27)
[2020-11-26 08:09] LABS: ABG PO2 46.4 mmhg (80-100); Allen's Test Patient Unable; Oxygen 100 %; PEEP 26; Source Right Radial; Tidal Volume 440; Vent Rate 30
[2020-11-26 08:10] LABS: Lactate Arterial 5.1 mmol/L (0.4-2.0)
--- NOTE | 2020-11-26 08:45 | HMH.ACPN2 ---
Internal Medicine - PN: Subj *Date: 11/26/20 *Time: 08:45 Interval history: Assuming care for Dr. Young while he is out of town. Chart reviewed and patient examined. Condition remains extremely critical. She required manual bagging for about 15 minutes yesterday when sats dropped into 50s. Exam Vital signs and Labs for Last 24 Hours: Temp Pulse Resp BP Pulse Ox 98.5 F 75 31 H 105/45 L 93 L 11/26/20 12:00 11/26/20 12:00 11/26/20 11:00 11/26/20 12:00 11/26/20 12:00 Laboratory Results - last 24 hr 11/22/20 06:00: ABG Lactate 3.1 H 11/25/20 06:15: Triglycerides 247 H, Cholesterol 115 L, LDL Cholesterol Direct 54.80 L, VLDL Cholesterol 49 H, HDL Cholesterol 17 L, Cholesterol/HDL Ratio 6.8 H 11/25/20 13:07: POC Glucose 74 11/25/20 15:19: POC Glucose 89 11/25/20 17:34: POC Glucose 74 11/25/20 18:42: POC Glucose 97 11/25/20 20:05: POC Glucose 73 11/25/20 22:02: POC Glucose 55 L 11/26/20 00:04: POC Glucose 65 L 11/26/20 05:45: WBC 20.1 H*, RBC 3.43 L, Hgb 10.7 L, Hct 35.5 L, MCV 103.5 H, MCH 31.1, MCHC 30.0 L, RDW 14.6, Plt Count 184, MPV 10.2, Neut % (Auto) 95.8 H, Lymph % (Auto) 2.5 L, [place] % (Auto) 1.5 L, Eos % (Auto) 0.0 L, Baso % (Auto) 0.2, Neut # (Auto) 19.3 H, Lymph # (Auto) 0.5 L, [place] # (Auto) 0.3, Eos # (Auto) 0.0, Baso # (Auto) 0.0, Total Counted 100, Neutrophils % (Manual) 86 H, Band Neutrophils % 9.0 H, Lymphocytes % (Manual) 5 L, Platelet Estimate Normal, Hypochromasia 2+, Macrocytosis 2+ 11/26/20 05:45: Sodium 166 H*, Potassium 2.7 L*, Chloride 115 H, Carbon Dioxide 45 H*, Anion Gap 8.7, BUN 68 H, Creatinine 1.20 H, Estimated Creat Clear 41, Estimated GFR 46 L, Est GFR ( Amer) 56 L D, Glucose 73 L D, Calcium 6.4 L 11/26/20 06:00: Specimen Source Right radial, O2 % 100, ABG pH 7.52 H, ABG pCO2 48.9 H, ABG pO2 46.4 L, ABG HCO3 39.0 H, ABG Total CO2 40.5 H, ABG O2 Saturation 86 L*, ABG Base Excess 16.2 H, Nhan Test Patient unable, ABG Lactate 5.1 H, Vent Rate 30, Tidal Volume 440, PEEP 26 I & O for Last 24 hours: Intake & Output 11/24/20 11/25/20 11/26/20 11/27/20 11:59 11:59 11:59 11:59 Intake Total 5500.389 / 5500.389 3343.419 / 3343.419 3765.220 / 3765.220 Output Total 2392 / 3042 4210 / 4660 2700 / 2800 100 / 100 Balance 3108.389 / 2458.389 -866.581 / -1136.750 1607.220 / 965.220 -100 / -100 Weight 301 lb 6 oz 309 lb 309 lb 7 oz Narrative: She remains sedated on the ventilator. Lungs are equal but diminished. Heart tones are distant. Abdomen distended and firm. No bowel sounds. Extremities with 1+ edema. Assessment and Plan (1) Respiratory failure Status: Acute Qualifiers: Chronicity: acute Respiratory failure complication: hypoxia Qualified Code(s): J96.01 - Acute respiratory failure with hypoxia Category: Medical Code(s): J96.90 - Respiratory failure, unspecified, unspecified whether with hypoxia or hypercapnia (2) Bilateral pneumonia Status: Acute Category: Medical Code(s): J18.9 - Pneumonia, unspecified organism (3) COVID-19 Status: Acute Category: Medical Code(s): U07.1 - COVID-19 (4) Diabetes mellitus type 2 in obese Status: Chronic Category: Medical Code(s): E11.69 - Type 2 diabetes mellitus with other specified complication; E66.9 - Obesity, unspecified (5) Obesity Status: Chronic Category: Medical Code(s): E66.9 - Obesity, unspecified (6) Degenerative disc disease Status: Chronic Qualifiers: Spinal region: lumbar Qualified Code(s): M51.36 - Other intervertebral disc degeneration, lumbar region Category: Medical (7) HTN (hypertension) Status: Chronic Category: Medical Code(s): I10 - Essential (primary) hypertension (8) Lumbar radiculopathy Status: Chronic Category: Medical Code(s): M54.16 - Radiculopathy, lumbar region (9) Compression fracture Status: Acute Category: Medical (10) Anxiety Status: Chronic Category: Medical Code(s): F41.9 - Anxiety disorder, unspecified (11
--- NOTE | 2020-11-26 08:54 | PC.NURSE ---
RESP CARE NOTE: Rate decreased to 28 bpm per verbal order Dr Castellano.
[2020-11-26 12:09] LABS: Reflex Lactic Add Lactic Reflex
--- NOTE | 2020-11-26 13:13 | PC.NURSE ---
1020 - Pt woken easily, prn dilaudid given. SPO2 decreased to 50%, pt bagged for about 15 minutes. Sat slowly improved to 87-88%
[2020-11-26 15:51] LABS: Chloride 114 mmol/L (98-107); Potassium 3.3 mmoL/L (3.5-5.1)
[2020-11-26 15:54] LABS: Blood Urea Nitrogen 71 mg/dl (7-17); Creatinine Clearance Estimated 41 mL/min (50-200); Estimated Glomerular Filt Rate 46 ml/min (>60); GFR (African American) 56 ML/MIN (>60)
[2020-11-26 15:55] LABS: Calcium 6.4 mg/dl (8.4-10.2); Glucose 212 mg/dl (74-100)
[2020-11-26 16:05] LABS: Anion Gap 12.3 mEq/L (5-15); Carbon Dioxide 41 mmol/L (22.0-30.0)
[2020-11-26 16:07] LABS: Sodium 164 mmol/L (136-145)
--- NOTE | 2020-11-26 19:53 | PC.NURSE ---
1841 - Spoke to Dr. Bliss @ this time, made MD aware that pt has required bagging multiple times in the last hour w/ min improvement. Sat currently 83-85%, w/ cont bagging pt sat will not improve. RT @ bedside. Lungs diminished throughout. Abdomen appears larger, more firm, absent bowel sounds. No new orders from MD. 1844 -Pt's family notified of change in status. 1952 - Spoke to pt's via phone, he is unable to come in @ this time. consent to terminally extubate and withdraw care. 1955 - Dr. Bliss made aware of husbands wishes. Received okay to terminally extubate pt, will continue dilaudid gtt and DC other meds. Pt's sister currently @ bedside. Awaiting call back to see if more family wishes to see pt prior to extubation.
--- NOTE | 2020-11-26 20:16 | PC.NURSE ---
Medications stopped. Pt extubated @ 2012, W Royer,RT, GLEN Lacey RN and pt's sister @ bedside. Sister remains @ bedside. No needs voiced @ this time. Left in care of Celina Sherwood RN @ this time.
--- NOTE | 2020-11-26 20:30 | PC.NURSE ---
Pt pulseless @ 2019. MD doll surgeon notified. Called ED @ this time, Dr. Davis to come up to pronounce.
--- NOTE | 2020-11-26 20:42 | HMH.DEATH ---
Pronouncement Note - Date and Time of Date of : 11/26/20 Time of : 20:42 - PCOD Preliminary cause of : Acute respiratory failure - Additional Data Confirmation of : no pulse, no respirations, no heart sounds, pupils fixed and dilated Family: at bedside Attending/PCP notified?: Yes Attending physician: Brendan Young MD Was code activated?: No Autopsy requested?: No license registration examiner notified?: No Organ bank notified?: Yes Advance directives: Yes
--- NOTE | 2020-11-27 | PC.NURSE ---
2019 TOD. Family, Jes Quijano in room with pt. 2019 MD Bliss notified 2027 ER notified 2047 CARLOS notified, Franci Narvaez # [phone] [id number] pt bathed, IVs, Central lines, F/C, NG removed 2[address] [facility] Gabriel Guzman contacted per family request [id number] Pt left with [facility]
[2020-11-27 00:42] LABS: POC Glucose,Bedside 107 (70-110)
[2020-11-27 00:42] LABS: POC Glucose,Bedside 76 (70-110)
[2020-11-27 00:42] LABS: POC Glucose,Bedside 189 (70-110)
[2020-11-27 00:42] LABS: POC Glucose,Bedside 55 (70-110)
[2020-11-27 00:42] LABS: POC Glucose,Bedside 53 (70-110)
--- NOTE | 2020-11-28 14:24 | [facility].DCSUM ---
General - General Admission date:: 11/17/20 Discharge date: 11/26/20 HPI HPI: This 55-year-old white female tested Covid positive by PCR November 10 though she had had symptoms at least a week prior. Her symptoms started with upper respiratory symptoms primarily. Symptoms have progressed to shortness of air. She received the Covid 19 vaccine by Arina May 03, 2020. She is however diabetic and obese. She is on multiple medicines for her diabetes. She has a lot of chronic back pain. She underwent kyphoplasty in October 2017. She has difficulty ambulating and spends much time in a wheelchair. In the emergency room her initial sats were below 90. She was placed on BiPAP. She spent the night in the emergency room and was transferred to the floor the morning of 11/18. Hospital Course Hospital Course: The patient was admitted and started on Covid protocol. She was placed on BiPAP with satisfactory saturations. A chest CT showed extensive bilateral pulmonary opacities primarily groundglass opacification compatible with severe COVID-19 pneumonitis. Patient's respiratory status deteriorated and she was breathing at a rate greater than 30 on the BiPAP and was uncomfortable. A blood gas was obtained and decision was made to intubate the patient. Dr. Davis successfully intubated the patient and she was placed on a ventilator. She was maintained on the ventilator, but her sats were only 79-80. Her settings were increased and the monitor car operator was consulted by phone and recommended increasing her PEEP to 20. This did result in improving her sats in the 88-90 range. Her urine output was poor, therefore her IV fluids were increased. Chest x-ray showed no change in her pneumonia. The patient had to be started on a Levophed drip. Her oxygen saturations were unstable with any kind of movement. Her blood sugars were elevated and she was covered with sliding scale and Lantus. Pulmonology did see the patient. He felt she had metabolic acidosis with hypoxic respiratory failure. He recommended current antibiotics including Levaquin and Azotrenam. She was continued on remdesivir and dexamethasone. A venous Doppler was ordered as was a KUB due to distended abdomen. He also recommended central line placement as she was hemodynamically unstable even on 8 mcg of Levophed. Her renal function continued to worsen, therefore he added sodium bicarb to her maintenance fluids. He felt she would eventually need dialysis. Her venous Doppler was negative for DVT. A KUB showed no acute abdominal findings. There was bowel gas in the abdomen and pelvis and a left lower lobe pulmonary consolidation. A repeat chest x-ray showed streaky soft tissue air noted within the bilateral neck and bilateral chest wall compatible with a subcutaneous emphysema. Endotracheal tube tip appeared oriented toward the right mainstem bronchus. There was no pneumothorax appreciated and radiology felt she had a probable pneumomediastinum. Her lipase came back elevated, therefore a CT of the abdomen was ordered and her barcitinib was discontinued. The abdominal pelvic CT showed pneumoperitoneum secondary to dissection inferiorly from a pneumomediastinum. There was a questionable mild pancreatitis as well. Her triglycerides returned significantly elevated. Her propofol was discontinued and she was initiated on insulin drip. A chest CT was then performed showing pneumomediastinum with a diffuse amount of subcutaneous emphysema. There was no obvious pneumothorax and there was diffuse bilateral pulmonary consolidation consistent with pneumonia. Surgery was consulted. The patient was seen by Dr. Gerardo and had been too unstable even for central line placement due to the inability to lie supinely. He reviewed her CT scan and felt there was air in the soft tissue abdominal wall from dissection from the chest area and not true intra-abdominal free air from a perforated viscus. Give
== END 2020-11-26 22:40 | disposition expired | DRG 207 ==
LOC: ER 18:49 → 2ND 11-18 07:33 → ICU 11-18 21:52
PROVIDERS: Family Medicine; Internal Medicine Pulmonary Disease; Nurse Practitioner Family; Admitting Provider Family Medicine; Emergency Provider Internal Medicine; PCP Physician Assistant; Visit Provider Family Medicine
DX: U07.1 COVID-19 (principal); J12.82 Pneumonia due to coronavirus disease 2019; J96.01 Acute respiratory failure with hypoxia; K85.90 Acute pancreatitis without necrosis or infection, unspecified; N17.9 Acute kidney failure, unspecified; Z68.43 Body mass index [BMI] 50.0-59.9, adult; E87.0 Hyperosmolality and hypernatremia; Z79.4 Long term (current) use of insulin; M51.36 Other intervertebral disc degeneration, lumbar region; E78.5 Hyperlipidemia, unspecified; I10 Essential (primary) hypertension; F41.9 Anxiety disorder, unspecified; F32.A Depression, unspecified; E11.43 Type 2 diabetes mellitus with diabetic autonomic (poly)neuropathy; E66.01 Morbid (severe) obesity due to excess calories; J98.2 Interstitial emphysema; E78.1 Pure hyperglyceridemia; E87.6 Hypokalemia; M54.9 Dorsalgia, unspecified; G89.29 Other chronic pain
CPT/HCPCS: 31500; 94002; 36556; 36415; 71045; 71250; 74018; 74176; 80048; 80053; 80061; 81001; 82728; 82803; 82947; 82962; 83036; 83605; 83690; 84478; 85007; 85025; 85378; 86140; 86328; 87040; 87070; 87081; 87205; 87581; 87632; 87798; 93005; 93970; 94003; 94640; 94660; 94761; 96366; 96367; 96374; 99282; C1751; C9803; J0330; J1956; J2185; J2704; U0003; U0005